=== PATIENT | female | born 1945 | race Caucasian/White ===

== ENCOUNTER 2025-05-12 23:50 | Inpatient (IN) | payer MEDICARE, SELFPAY ==
[2025-05-12] VITALS (7 sets, daily range): BP systolic 124–142; BP diastolic 62–89
[2025-05-12 16:26] LABS: Hematocrit 41.0 % (37.0-47.0); Hemoglobin 13.1 g/dL (12.0-16.0); Mean Corp Hgb Conc. 32.0 g/dL (33.0-37.0); Mean Corpuscular Volume 96.7 fL (81.0-99.0); Nucleated Red Blood Cells % 0 %; Platelet Count 270 10^3/uL (130-400); Red Cell Dist. Width 14.6 % (11.5-14.5)
[2025-05-12 16:30] LABS: INR 1.08; PT 14.3 Sec (11.4-14.6)
[2025-05-12 16:31] LABS: ALT (SGPT) 16 U/L (0-35); AST (SGOT) 21 U/L (14-36); Albumin 4.0 g/dl (3.5-5.0); Alkaline Phosphatase 111 U/L (38-126); Blood Urea Nitrogen 16 mg/dl (7-17); Calcium 9.6 mg/dl (8.4-10.2); Carbon Dioxide 31 mmol/L (22-30); Chloride 97 mmol/L (98-107); Glucose 100 mg/dl (70-99); Potassium 4.0 mmol/L (3.5-5.1); Sodium 136 mmol/L (135-145); Total Protein 7.1 g/dl (6.3-8.2); eGFR > 60.00
[2025-05-12 16:43] LABS: Troponin I 0.014 ng/ml
--- NOTE | 2025-05-12 17:27 | ED.GENMED ---
History of Present Illness
<William Wilcox MD - Last Filed: 05/13/25 12:46>
General
Chief Complaint: Breathing Problem
Source: patient
Exam Limitations: none
Time Seen by Provider: 05/12/25 17:02
Nursing documentation reviewed up to this point in time: agreed with
History of Present Illness
History of Present Illness:
Patient with history of hypercholesterolemia and depression, presents to ED secondary to worsening shortness of breath over the past 2 months, especially when laying down. Patient was evaluated urgent care center, where EKG revealed atrial
fibrillation along with chest x-ray revealing pleural effusion. Patient was subsequently referred to ED for further evaluation and treatment. Patient denies chest pain. Denies vomiting or diarrhea. Denies fever or chills. Patient reports
intermittent cough. Denies leg pain or swelling. Denies back pain. Patient moved up to [place] from [place] in January. Of note, patient reports unintentional weight loss of approximately 100 pounds over the past 2 years.
Review of Systems
<William Wilcox MD - Last Filed: 05/13/25 12:46>
Review of Systems
Allergies reviewed?: Yes
All Other Systems: ROS reviewed and negative except as documented in HPI and ROS
Constitutional: Reports no symptoms
Respiratory: Reports cough and trouble breathing
Cardiac: Reports no symptoms; Denies chest pain or palpitations
ABD/GI: Reports no symptoms; Denies vomiting or diarrhea
Musculoskeletal: Reports no symptoms
Skin: Reports no symptoms
Neurological: Reports no symptoms
Phy Exam
<William Wilcox MD - Last Filed: 05/13/25 12:46>
Physical Exam
Physical Exam:
Physical Exam
General: mild distress, not acutely ill. afebrile. tachycardic
Head: nc/at. eomi
Neck: supple. no jvd
Heart: irregularly irregular. tachycardic.
Lungs: no acute respiratory distress. clear bilaterally
Abdomen: normal bowel sounds. not tender.
Neuro: alert and oriented x 3. no focal neurological deficits
Skin: no rash
Psychiatric: well kept. interactive and cooperative
Extremities: LE b/l, nonpitting edema. no calf tenderness.
Scores
<William Wilcox MD - Last Filed: 05/13/25 12:46>
Heart Failure Risk
Heart Failure Risk Score: Yes
History of Stroke or TIA: No
History of intubation for respiratory distress: No
Heart rate on ED arrival >/= 110: Yes
SaO2 <90% on arrival on room air: No
HR >/=110 during 3min walk test (or too ill to perform test): Yes
ECG has acute ischemic changes: No
Urea >/=12mmol/L (BUN 33.6mg/dL): No
Serum CO2>/=35mmol/L: No
Troponin I or T elevated to AL Level (0.4mg/dL): No
NT-proBNP >/=5,000ng/L (5,000pg/ml): Yes
HF Risk Score: 3
Admission Status: HIGH RISK 15.9% Consider SNF treatment or admission to hospital
Course
<William Wilcox MD - Last Filed: 05/13/25 12:46>
Orders/Labs/Results
Orders:
Orders
05/12/25 15:42
Electrocardiogram (*1) Urgent
Reason for Study: Chest Pain
EKG- Treatment ONCE
05/12/25 16:02
Complete Blood Count/With Diff Urgent
Comprehensive Metabolic Panel Urgent
NT-proBNP Urgent
Prothrombin Time Urgent
TSH Reflex To Free T4 Urgent
Troponin I Urgent
05/12/25 17:25
Add On- LAB Urgent
Tests Added?: TSH to reflex free T4, ProBNP
05/12/25 17:26
Diltiazem HCl [Cardizem] 10 mg IV NOW STA
05/12/25 17:30
Diltiazem 125 mg/125 ml Nss [Cardizem] 125 mg in 125 ml IV PER PROTOCOL
Initial dose in mg/hr, then titrate:: 5
Titrate to keep:: Heart rate 80-100 bpm
Titrate by mg/hr:: 5 mg/hr
Frequency of titrations (minutes):: 15
Maximum dose in mg/hr:: 15
05/12/25 17:36
D-Dimer Urgent
05/12/25 18:34
CT Chest PE Study Urgent
Comment:
Reason For Exam: sob/hypoxia
05/12/25 20:10
Furosemide [Lasix] 20 mg IV NOW STA
05/12/25 23:37
Admit/Transfer Patient As Directed
Co-Sign Provider:
Level of Care: Inpatient admission
Assign to:: IVU
Physician / Group: isha
Diagnosis: afib rvr, malignancy
Reason for Hospitalization: afib rvr, malignancy
Expected length of stay greater than two midnights?: Yes
ELOS- Estimated Length of Stay in days: 2
I certify the patient meets the requirements for IP care: Yes
Code Status As Directed
Resuscitation Status: Full Code
PRN Pain Medication Management As Directed
May give lesser potent ordered pain med per pt: Yes
preference::
Protocol:: Medication orders for pain may be administered in a
manner that supports deferring to patient preference
when the pt is:
- Requesting an ordered lesser potent pain medication.
Least to most potent pain medications are defined
as: acetaminophen < NSAID < tramadol < opioids
(morphine, oxycodone, hydromorphone).
- Requesting a lesser dose of the same medication IF
ORDERED.
- Requesting a less intrusive route of administration
if both routes are prescribed by the provider (PO <
IV).
05/13/25 01:48
Heparin 3,000 units IV NOW STA
Heparin 87288 Units/250 ml 25,000 units in 250 ml IV PER PROTOCOL
Weight to be used for heparin protocol in kilograms (kg):: 49.5
Protocol:: Cardiac Tx/Acute Coronary
PTT Goal Range to be used:: PTT 73 to 111 seconds
Order type:: Initial
INITIAL Infusion Dose (UNITS/KG/hr) & then follow protocol:: 12 units/kg/hr
Infusion Dose in UNITS/hr & then follow protocol (UNITS/hr):: 600
INFUSION RATE in mL/hr & then follow protocol (mL/hr):: 6
PTT less than or equal to 64 seconds:: Increase rate by 200 units/hr (+ 2 mL/hr)
PTT 64.1 to 72.9 seconds:: Increase rate by 100 units/hr (+ 1 mL/hr)
PTT 73 to 111 seconds:: Target Range. No change in rate.
PTT 111.1 to 130.9 seconds:: Decrease rate by 100 units/hr (- 1 mL/hr)
PTT 131 to 199.9 seconds:: HOLD for 1 hr. Then decrease rate by 200 units/hr (- 2 mL/hr)
PTT greater than or equal to 200 seconds:: HOLD for 2 hrs & Notify Provider. Then decrease by 200 units/hr (-
2 mL/hr)
Lab follow-up:: Each change, PTT q6h until 2 consecutive are therapeutic. Then PTT
daily.
doxylamine succinate [Unisom (doxylamine)] 25 mg PO HSPRN PRN
05/13/25 01:48
Echo 2D MMode Color/Doppler Routine
Reason for Study: new afib rvr
Abdomen/Pelvis w Contrast CT [CT Abd/pelvis W Iv Cont] Routine
Comment:
Reason For Exam: lung mets
CARDIOLOGY CONSULT Routine
Consulting Provider: Jacob Alonso
Was physician already notified: No
Reason for consult: afib rvr
Consult Interventional Radiology [IRAD CONSULT] Routine
Consulting Provider: Margarito Brenner
Was physician already notified: No
Procedure being ordered, including laterality if applicable: R thora
Acknowledgement that appropriate orders are entered: Yes
Consult Notification Routine
Specialty to Notify: Cardiology
Date consulting provider notified: 05/13/25
Time consulting provider notified: 06:56
Notified:: Provider
Comment: TT Notified
Consult Notification Routine
Specialty to Notify: IRAD (Interventional Radiology)
Date consulting provider notified: 05/13/25
Time consulting provider notified: 06:56
Notified:: Provider
Comment: TT Notified
Consult Notification Routine
Specialty to Notify: Oncology
Date consulting provider notified: 05/13/25
Time consulting provider notified: 06:57
Notified:: Provider
Comment: TT Notified
ONCOLOGY CONSULT Routine
Consulting Provider: Brendan Allen
Was physician already notified: No
Reason for consult: malignancy unknwon source
VTE Contraindication Routine
VTE Mechanical Device Contraindication: Medical Contraindication
Pharmocologic Contraindication: Medical Contraindication
Body Fluid Amylase Routine
Fluid Source: Pleural
Body Fluid Cell Count Routine
What is the Body Fluid: pleural fluid
Comment: post procedure
Body Fluid Glucose Routine
Fluid Source: Pleural
Body Fluid LDH Routine
Fluid Source: Pleural
Body Fluid Protein Routine
Fluid Source: Pleural
Body Fluid Triglycerides Routine
Fluid Source: Pleural
Body Fluid pH Routine
Fluid Source: Pleural
Fluid Culture with Gram Stain Routine
MOOKIE Source: Pleural Fluid
Specimen Description:
Comment: post procedure
Gram Stain Routine
MOOKIE Source: Pleural Fluid
Specimen Description:
Comment: POST PROCEDURE
Heparin Protocol- PTT Orders As Directed
PTT per Heparin protocol: -Obtain CBC and baseline PTT - if not already collected.
-Obtain PTT 6 hours from start of infusion. Then, every 6 hours until 2 consecutive
PTT's are therapeutic. Then, PTT Daily.
-With each rate change, obtain PTT every 6 hours until 2 consecutive PTT's are
therapeutic. Then, PTT Daily.
Activity As Directed
Activity Level: As Tolerated
Notify MD As Directed
Notify physician if: PTT is greater than or equal to 200.
Vital Signs As Directed
Frequency: Per unit guidelines
IRAD Cytology Routine
Source: Pleural Fluid, Right
Clinical Impression: malignancy
05/13/25 02:24
Complete Blood Count/No Diff Urgent
Comment: Obtain baseline before beginning heparin infusion if not already collected
Complete Blood Count/With Diff IN AM
Comprehensive Metabolic Panel IN AM
LDH Routine
Comment: post procedure, add on to morning labs if already drawn
PTT Urgent
Comment: Obtain baseline before beginning heparin infusion if not already collected
Total Protein Routine
Comment: post procedure, add on to morning labs if already drawn
05/13/25 08:00
Escitalopram Oxalate [Lexapro] 10 mg PO DAILY
05/13/25 Dinner
Cholesterol Lowering
At Your Request: Limited Participation
Cholesterol Lowering: Sodium, 2 Gram
05/13/25 22:00
Atorvastatin [Lipitor] 20 mg PO HS
Abnormal Lab Results
05/12/25 05/12/25
16:02 17:36
WBC 11.7 H 10^3/uL
(4.8-10.8)
MCHC 32.0 L g/dL
(33.0-37.0)
RDW 14.6 H %
(11.5-14.5)
Abs Immat Gran (auto) 0.1 H 10^3/uL
(0-0.05)
Absolute Neuts (auto) 10.5 H 10^3/uL
(1.4-6.5)
Absolute Lymphs (auto) 0.4 L 10^3/uL
(1.2-3.4)
Neutrophils % 90.1 H %
(42.2-75.2)
Lymphocytes % 3.4 L %
(20.5-51.1)
D-Dimer 1.50 H ug/mlFEU
(0.00-0.50)
Chloride 97 L mmol/L
(98-107)
Carbon Dioxide 31 H mmol/L
(22-30)
Glucose 100 H mg/dl
(70-99)
05/12/25 16:02
05/12/25 16:02
Vital Signs
Initial and Last Documented VS:
Initial Vital Signs
Pulse Resp BP Pulse Ox
136 18 140/85 94
05/12/25 15:36 05/12/25 15:36 05/12/25 15:36 05/12/25 15:36
Last Documented Vital Signs
Temp Pulse Resp BP Pulse Ox
97.7 F 65 18 132/70 94
05/13/25 06:49 05/13/25 10:00 05/13/25 06:49 05/13/25 06:52 05/13/25 06:52
<Jet Ratliff, - Last Filed: 05/13/25 02:00>
Orders/Labs/Results
Orders:
Orders
05/12/25 15:42
Electrocardiogram (*1) Urgent
Reason for Study: Chest Pain
EKG- Treatment ONCE
05/12/25 16:02
Complete Blood Count/With Diff Urgent
Comprehensive Metabolic Panel Urgent
NT-proBNP Urgent
Prothrombin Time Urgent
TSH Reflex To Free T4 Urgent
Troponin I Urgent
05/12/25 17:25
Add On- LAB Urgent
Tests Added?: TSH to reflex free T4, ProBNP
05/12/25 17:26
Diltiazem HCl [Cardizem] 10 mg IV NOW STA
05/12/25 17:30
Diltiazem 125 mg/125 ml Nss [Cardizem] 125 mg in 125 ml IV PER PROTOCOL
Initial dose in mg/hr, then titrate:: 5
Titrate to keep:: Heart rate 80-100 bpm
Titrate by mg/hr:: 5 mg/hr
Frequency of titrations (minutes):: 15
Maximum dose in mg/hr:: 15
05/12/25 17:36
D-Dimer Urgent
05/12/25 18:34
CT Chest PE Study Urgent
Comment:
Reason For Exam: sob/hypoxia
05/12/25 20:10
Furosemide [Lasix] 20 mg IV NOW STA
05/12/25 23:37
Admit/Transfer Patient As Directed
Co-Sign Provider:
Level of Care: Inpatient admission
Assign to:: IVU
Physician / Group: isha
Diagnosis: afib rvr, malignancy
Reason for Hospitalization: afib rvr, malignancy
Expected length of stay greater than two midnights?: Yes
ELOS- Estimated Length of Stay in days: 2
I certify the patient meets the requirements for IP care: Yes
Code Status As Directed
Resuscitation Status: Full Code
PRN Pain Medication Management As Directed
May give lesser potent ordered pain med per pt: Yes
preference::
Protocol:: Medication orders for pain may be administered in a
manner that supports deferring to patient preference
when the pt is:
- Requesting an ordered lesser potent pain medication.
Least to most potent pain medications are defined
as: acetaminophen < NSAID < tramadol < opioids
(morphine, oxycodone, hydromorphone).
- Requesting a lesser dose of the same medication IF
ORDERED.
- Requesting a less intrusive route of administration
if both routes are prescribed by the provider (PO <
IV).
05/13/25 01:48
Heparin 3,000 units IV NOW STA
Heparin 78686 Units/250 ml 25,000 units in 250 ml IV PER PROTOCOL
Weight to be used for heparin protocol in kilograms (kg):: 49.5
Protocol:: Cardiac Tx/Acute Coronary
PTT Goal Range to be used:: PTT 73 to 111 seconds
Order type:: Initial
INITIAL Infusion Dose (UNITS/KG/hr) & then follow protocol:: 12 units/kg/hr
Infusion Dose in UNITS/hr & then follow protocol (UNITS/hr):: 600
INFUSION RATE in mL/hr & then follow protocol (mL/hr):: 6
PTT less than or equal to 64 seconds:: Increase rate by 200 units/hr (+ 2 mL/hr)
PTT 64.1 to 72.9 seconds:: Increase rate by 100 units/hr (+ 1 mL/hr)
PTT 73 to 111 seconds:: Target Range. No change in rate.
PTT 111.1 to 130.9 seconds:: Decrease rate by 100 units/hr (- 1 mL/hr)
PTT 131 to 199.9 seconds:: HOLD for 1 hr. Then decrease rate by 200 units/hr (- 2 mL/hr)
PTT greater than or equal to 200 seconds:: HOLD for 2 hrs & Notify Provider. Then decrease by 200 units/hr (-
2 mL/hr)
Lab follow-up:: Each change, PTT q6h until 2 consecutive are therapeutic. Then PTT
daily.
doxylamine succinate [Unisom (doxylamine)] 25 mg PO HSPRN PRN
05/13/25 01:48
Echo 2D MMode Color/Doppler Routine
Reason for Study: new afib rvr
Abdomen/Pelvis w Contrast CT [CT Abd/pelvis W Iv Cont] Routine
Comment:
Reason For Exam: lung mets
CARDIOLOGY CONSULT Routine
Consulting Provider: Jacob Alonso
Was physician already notified: No
Reason for consult: afib rvr
Consult Interventional Radiology [IRAD CONSULT] Routine
Consulting Provider: Margarito Brenner
Was physician already notified: No
Procedure being ordered, including laterality if applicable: R thora
Acknowledgement that appropriate orders are entered: Yes
Consult Notification Routine
Specialty to Notify: Cardiology
Date consulting provider notified: 05/13/25
Time consulting provider notified: 06:56
Notified:: Provider
Comment: TT Notified
Consult Notification Routine
Specialty to Notify: IRAD (Interventional Radiology)
Date consulting provider notified: 05/13/25
Time consulting provider notified: 06:56
Notified:: Provider
Comment: TT Notified
Consult Notification Routine
Specialty to Notify: Oncology
Date consulting provider notified: 05/13/25
Time consulting provider notified: 06:57
Notified:: Provider
Comment: TT Notified
ONCOLOGY CONSULT Routine
Consulting Provider: Brendan Allen
Was physician already notified: No
Reason for consult: malignancy unknwon source
VTE Contraindication Routine
VTE Mechanical Device Contraindication: Medical Contraindication
Pharmocologic Contraindication: Medical Contraindication
Body Fluid Amylase Routine
Fluid Source: Pleural
Body Fluid Cell Count Routine
What is the Body Fluid: pleural fluid
Comment: post procedure
Body Fluid Glucose Routine
Fluid Source: Pleural
Body Fluid LDH Routine
Fluid Source: Pleural
Body Fluid Protein Routine
Fluid Source: Pleural
Body Fluid Triglycerides Routine
Fluid Source: Pleural
Body Fluid pH Routine
Fluid Source: Pleural
Fluid Culture with Gram Stain Routine
MOOKIE Source: Pleural Fluid
Specimen Description:
Comment: post procedure
Gram Stain Routine
MOOKIE Source: Pleural Fluid
Specimen Description:
Comment: POST PROCEDURE
Heparin Protocol- PTT Orders As Directed
PTT per Heparin protocol: -Obtain CBC and baseline PTT - if not already collected.
-Obtain PTT 6 hours from start of infusion. Then, every 6 hours until 2 consecutive
PTT's are therapeutic. Then, PTT Daily.
-With each rate change, obtain PTT every 6 hours until 2 consecutive PTT's are
therapeutic. Then, PTT Daily.
Activity As Directed
Activity Level: As Tolerated
Notify MD As Directed
Notify physician if: PTT is greater than or equal to 200.
Vital Signs As Directed
Frequency: Per unit guidelines
IRAD Cytology Routine
Source: Pleural Fluid, Right
Clinical Impression: malignancy
05/13/25 02:24
Complete Blood Count/No Diff Urgent
Comment: Obtain baseline before beginning heparin infusion if not already collected
Complete Blood Count/With Diff IN AM
Comprehensive Metabolic Panel IN AM
LDH Routine
Comment: post procedure, add on to morning labs if already drawn
PTT Urgent
Comment: Obtain baseline before beginning heparin infusion if not already collected
Total Protein Routine
Comment: post procedure, add on to morning labs if already drawn
05/13/25 08:00
Escitalopram Oxalate [Lexapro] 10 mg PO DAILY
05/13/25 Dinner
Cholesterol Lowering
At Your Request: Limited Participation
Cholesterol Lowering: Sodium, 2 Gram
05/13/25 22:00
Atorvastatin [Lipitor] 20 mg PO HS
Abnormal Lab Results
05/12/25 05/12/25
16:02 17:36
WBC 11.7 H 10^3/uL
(4.8-10.8)
MCHC 32.0 L g/dL
(33.0-37.0)
RDW 14.6 H %
(11.5-14.5)
Abs Immat Gran (auto) 0.1 H 10^3/uL
(0-0.05)
Absolute Neuts (auto) 10.5 H 10^3/uL
(1.4-6.5)
Absolute Lymphs (auto) 0.4 L 10^3/uL
(1.2-3.4)
Neutrophils % 90.1 H %
(42.2-75.2)
Lymphocytes % 3.4 L %
(20.5-51.1)
D-Dimer 1.50 H ug/mlFEU
(0.00-0.50)
Chloride 97 L mmol/L
(98-107)
Carbon Dioxide 31 H mmol/L
(22-30)
Glucose 100 H mg/dl
(70-99)
05/12/25 16:02
05/12/25 16:02
Vital Signs
Initial and Last Documented VS:
Initial Vital Signs
Pulse Resp BP Pulse Ox
136 18 140/85 94
05/12/25 15:36 05/12/25 15:36 05/12/25 15:36 05/12/25 15:36
Last Documented Vital Signs
Temp Pulse Resp BP Pulse Ox
97.7 F 65 18 132/70 94
05/13/25 06:49 05/13/25 10:00 05/13/25 06:49 05/13/25 06:52 05/13/25 06:52
<William Wilcox MD - Last Filed: 05/13/25 12:46>
MDM/Problems Addressed
MDM/Problems Addressed:
Outpatient x-ray reviewed by myself, which reveals right pleural effusion.
Patient started on Cardizem bolus with infusion, secondary to rapid atrial fibrillation, with improvement. In light of patient's unintentional weight loss along with new onset atrial fibrillation, as well as elevated D-dimer, CT PE study ordered.
Patient will be admitted for further evaluation and treatment.
Critical care statement: A total of 40 minutes of critical care time was provided for this patient. This includes management of unstable vital signs, evaluation of the patient at bedside, reviewing the patient's pertinent medical records, review of
old EKGs and review of pertinent medical records. This time with separate from time utilized to perform the aforementioned documented procedures
<William Wilcox MD - Last Filed: 05/13/25 12:46>
*Pulse Oximetry
SaO2: 97
Oxygen Mode of Delivery: Room air
Patient hypoxic: no
*Critical Care Note
Total Time (30-74mins, 75-104mins- exclusive of procedures): 40 min
<Jet Ratliff DO - Last Filed: 05/13/25 02:00>
Update Note
Update Note:
CT shows no pulmonary embolism but there is concern for metastatic disease. Patient made aware of results. Remained stable and heart rate remains controlled. Patient does admit that she feels better. Does admit that she has had weight loss over
some time
ED Attending Note
<William Wilcox MD - Last Filed: 05/13/25 12:46>
-
Portions of this chart may have been created with voice recognition software.� Occasional wrong word or��sound alike� substitutions may have occurred due to the inherent limitations of voice recognition software.
Discharge Plan
Departure
Patient Disposition: Admit
Date of Disposition: 05/12/25
Time of Disposition: 20:40
Presentation/result/management discussed w/ accepting MD/DO: Hospitalist
Discharge Problem:
Atrial fibrillation, rapid, Pleural effusion, Pulmonary metastatic disease
Interventions
Interventions:
*Risk Screen - Suicide Last Done: 05/12/25 15:36
*General Assessment Last Done: 05/12/25 15:36
*Neglect/Abuse Screening Last Done: 05/12/25 18:15
*ED- Fall Risk Assessment Last Done: 05/12/25 18:15
*ED COVID-19 Vaccine History Last Done: 05/12/25 18:15
*Nursing Disposition Last Done: 05/13/25 01:38
ED- Cardiac Assessment Last Done: 05/12/25 17:14
ED- Pulmonary Assessment Last Done: 05/12/25 17:14
Discharge Date and Time
Discharge Date/Time: 05/13/25 01:40
[2025-05-12] MEDS: CARDIZEM 125 IV (17:40)
[2025-05-12] MEDS: CARDIZEM 10 MG IV (17:40)
[2025-05-12 18:01] LABS: D-Dimer 1.50 ug/mlFEU (0.00-0.50)
[2025-05-12] MEDS: LASIX 20 MG IV (20:44)
--- NOTE | 2025-05-12 23:45 | HPS.HSE ---
Family Physician
-
Family Physician: Leilani Mckoy
Chief Complaint
-
shortness of breath
History of Present Illness
79-year-old female past medical history of hypercholesteremia, depression presenting for worsening shortness of breath over the past 2 months primarily with exertion. She has occasional cough. Denies chest pain. Denies palpitations. Denies
dizziness. Denies any prior history of heart conditions. Denies swelling in the legs or in the abdomen.
She went to urgent care and had EKG which showed new onset atrial fibrillation chest x-ray which showed pleural effusion. She was was referred to the emergency room.
She states that her 1 year ago. She had been trying to lose weight intentionally for the past year and lost 80 pounds. She denies any fevers or chills. Denies any abdominal pain, nausea or vomiting or diarrhea. Denies any
headaches, blurry vision, neurological symptoms. Denies back pain.
She recently moved from [place] from [place] in January.
She smoked briefly in high school/college. She drinks alcohol occasionally.
No family history of heart conditions or malignancy.
Medical History
Past Medical History
Past Medical History: Reports Other (hypercholesteremia, depression)
Past Surgical History: Reports None
Social History
Tobacco: Former Smoker
Alcohol: None
Drug: None
Family History
Family History: Not pertinent
Allergies / Home Medications
Allergies reflects when Allergies were last updated in [facility].
Home Medications with original date entered in [facility]
Allergy/Medication List:
Allergies
Allergy/AdvReac Type Severity Reaction Status Date / Time
Cephalosporins Allergy Hives Verified 05/12/25 15:36
Penicillins Allergy Hives Verified 05/12/25 15:36
Home Medications
doxylamine succinate 25 mg tablet (Unisom (doxylamine)) 25 mg PO HSPRN PRN SLEEP 05/12/25
escitalopram oxalate 10 mg tablet (Lexapro) 10 mg PO DAILY 05/12/25
memantine 5 mg tablet 5 mg PO BID 05/12/25
simvastatin 40 mg tablet (Zocor) 40 mg PO HS 05/12/25
Review of Systems
-
History Source: Patient
A 12 point ROS was completed and negative except as noted: Yes
Constitutional: Reports No Symptoms
EENT: Reports No Symptoms
Respiratory: Reports See HPI
Cardiac: Reports See HPI
Abdomen/GI: Reports No Symptoms
: Reports No Symptoms
Musculoskeletal: Reports No Symptoms
Skin: Reports No Symptoms
Neurological: Reports No Symptoms
Endocrine: Reports No Symptoms
Hematologic/Lymphatic: Reports No Symptoms
Psych: Reports No Symptoms
Physical Exam
Vital Signs
Vital Signs
Pulse Resp BP Pulse Ox
87 23 127/89 95
05/12/25 22:45 05/12/25 22:45 05/12/25 22:00 05/12/25 22:45
Physical Exam
General: Well Developed, Well Nourished and No Apparent Distress
HEENT: NormoCephalic, Moist mucous membranes and Atraumatic
Respiratory: Clear
Cardiac: S1/S2 and Regular Rhythm; No Murmur or Rub
GI: Soft, Non Tender, Non Distended and Normal Bowel Sounds; No Organomegaly
Rectal: Deferred by Provider
Musculoskeletal: No Clubbing, No Cyanosis and No Edema
Skin: No Rash
Neuro: Nonfocal/grossly intact
Laboratory Results
-
05/12/25 16:02
05/12/25 16:02
Laboratory Results
PT 14.3 Sec (11.4-14.6) 05/12/25 16:02
INR 1.08 05/12/25 16:02
Total Bilirubin 0.9 mg/dl (0.2-1.3) 05/12/25 16:02
AST 21 U/L (14-36) 05/12/25 16:02
ALT 16 U/L (0-35) 05/12/25 16:02
Alkaline Phosphatase 111 U/L (38-126) 05/12/25 16:02
Troponin I 0.014 ng/ml 05/12/25 16:02
Data Reviewed
-
Lab Data: Labs Reviewed by me
Old Records: Reviewed
Impression/Plan
-
IMPRESSION:
PLAN:
# New onset atrial fibrillation with RVR
- EKG shows atrial fibrillation heart rate 140
-Cardiac BNP 16,000
-D-dimer of 1.[address] PE show solid pulmonary masses throughout both lungs with moderate right pleural effusion
- Check TSH
- Check echo
-[id number] score of 3
-Heparin drip
- Cardiology consulted
# Possible mild component of acute CHF exacerbation secondary to tachycardia
-Cardiac BNP 16,000 although appears dry on examination
- 20 IV Lasix, hold further diuretics
- Check I's and O's, daily weights
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
-Leukocytosis
- IR for diagnostic thoracentesis with fluid studies, cytology
-Check CT abdomen pelvis to look for primary
- Oncology consulted
Hypercholesterolemia
- Continue simvastatin
Anxiety/depression
- Continue Lexapro
- Patient without dementia, denies being on memantine
Full code
DVT prophylaxis�heparin drip
Regular diet
[2025-05-13] VITALS (12 sets, daily range): BP systolic 69–132; BP diastolic 54–73; BMI 21.3
--- NOTE | 2025-05-13 02:28 | W.PN.UPDATE ---
Update Note
Progress Note Update
Asked to see patient to confirm Code status. Reviewed that no CPR or mechanical ventilation will be done if patients heart stops or if respiratory support needed. Patient and patient's daughter, both confirm that patient's code status is to be DNR.
[2025-05-13] MEDS: HEPARIN 3000 UNITS IV (02:34)
[2025-05-13] MEDS: HEPARIN 25000 UNITS/250 ML IV (02:36)
[2025-05-13 02:45] LABS: Hematocrit 41.1 % (37.0-47.0); Hematocrit 41.8 % (37.0-47.0); Hemoglobin 13.5 g/dL (12.0-16.0); Mean Corp Hgb Conc. 32.3 g/dL (33.0-37.0); Mean Corp Hgb Conc. 32.8 g/dL (33.0-37.0); Mean Corpuscular Volume 95.2 fL (81.0-99.0); Mean Corpuscular Volume 96.9 fL (81.0-99.0); Nucleated Red Blood Cells % 0 %; Platelet Count 258 10^3/uL (130-400); Platelet Count 267 10^3/uL (130-400); Red Cell Dist. Width 14.5 % (11.5-14.5); Red Cell Dist. Width 14.6 % (11.5-14.5)
[2025-05-13 02:51] LABS: APTT 28.2 Sec (23.4-35.0)
[2025-05-13 03:06] LABS: ALT (SGPT) 17 U/L (0-35); AST (SGOT) 21 U/L (14-36); Albumin 4.0 g/dl (3.5-5.0); Alkaline Phosphatase 102 U/L (38-126); Blood Urea Nitrogen 17 mg/dl (7-17); Calcium 9.5 mg/dl (8.4-10.2); Carbon Dioxide 38 mmol/L (22-30); Chloride 95 mmol/L (98-107); Estimated Creatinine Clearance 36 ml/min; Glucose 123 mg/dl (70-99); Potassium 3.5 mmol/L (3.5-5.1); Sodium 141 mmol/L (135-145); Total Protein 7.0 g/dl (6.3-8.2); eGFR > 60.00
[2025-05-13 03:07] LABS: LDH 250 U/L (120-246); Total Protein 6.8 g/dl (6.3-8.2)
--- NOTE | 2025-05-13 05:10 | PTCARENOTE ---
Admitted pt from ED to room 2255 at 0130, aaox2, bed alarm in place, able to make needs known. Cardizem infusing at 5ml/hr via R AC, HR sustaining 80-100's, bp stable. Heparin gtt initiated shortly after at 600 unit/hr. Daughter at bedside,
admission questions completed. Pt denies c/o cp or dizziness, some SOB with exertion, Pox 94% RA. Call shipley within reach, oriented pt to room and call light, updated on plan of care both daughter and pt. Bed alarm in place.
[2025-05-13] MEDS: LEXAPRO 10 MG PO (08:13)
--- NOTE | 2025-05-13 08:51 | CON.ONC ---
Consultation
-
Date Consultation Requested: 05/13/25
Requesting Provider: Dr.Udaybhanu Aldridge
Performing Provider: Dr.Sarah Gerber
Reason for Consultation: Malignancy unknown source
Impression
Impression
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
- CT chest 05/13/25: Solid pulmonary masses throughout both lungs highly suspicious for malignancy/metastatic disease. The largest mass measures 5.8 cm in the left upper lobe. Moderate right pleural effusion.
- Elevated WBC of 11.5, likely reactive to ?malignancy, elevated D-dimer
- pending IR consult for diagnostic thoracentesis for today
- pending CT abdomen/pelvis with contrast
# New onset atrial fibrillation with RVR
-EKG shows atrial fibrillation in ED
- On IV Cardizem drip, IV heparin
- Echo pending
- Cardiology following
#Dementia
- daughter states that memantine was recently started a few days ago for newly diagnosed dementia
# Hypercholesterolemia
# Anxiety/depression
DNR
Plan
Plan
pending CT Abdomen/pelvis
pending IR for thoracentesis
Patient History
History of Present Illness
This is a 79yo F patient with PMH of HLD, depression and newly diagnosed dementia who presented to the [facility] for concerns of SOB for the past few months. Daughter present at bedside. Daughter has noticed that patient was progressively
worsening with her shortness of breath with exertion. Most recently she has had trouble doing her daily activities and on Monday evening had difficulty walking to the dining table for dinner.
The daughter also states that over the past 2.5 years, she has noticed 'a unintentional weight loss of around 100 pounds' that was not associated with any abdominal pain, diarrhea/constipation, blood in stool or nausea.
They had gone to the urgent care yesterday where an EKG was done showing new onset atrial fibrillation and chest x-ray with pleural effusion and she was referred to the hospital.
Patient denies any productive cough, chest pain, palpitations or dizziness. Denies any lower extremity swelling, headaches or blurry vision.
The patient has recently moved from [place] to [place] in January to be closer to family. She has not seen a PCP in a few years and had just established care in [place] just a few days ago though she states that she has not had any workup done
for her shortness of breath. She was recently diagnosed with dementia and had started memantine a few days ago.
She states that she has had regular mammograms and only 1 colonoscopy that were unremarkable. Daughter does not think patient ever had Cologuard done. Patient denies any new breast lumps. No history of skin cancer. Daughter states that patient
had smoked 5-6 cigarettes for 10 years during her high school/college time.
There is family history of bladder cancer in father, leukemia in mother (patient unsure of specifics) and breast cancer in daughter.
In the ED, she was afebrile with elevated white count of 11.5, Hb 13.5, neutrophils 90.7%, elevated LDH 250 and normal LFTs. EKG showed atrial fibrillation BNP of 16,000 and elevated D-dimer which prompted CT PE which showed solid pulmonary masses
throughout both lungs highly suspicious for malignancy/metastatic disease along with moderate right pleural effusion.
Past-Medical/Surgical History
Past medical history: Hyperlipidemia, dementia, depression
Surgical history: Cholecystectomy, bilateral total knee replacement
Patient Medication
�Medication �Instructions �Recorded �Confirmed �Last Taken �Type
doxylamine succinate 25 mg tablet 25 mg PO HSPRN PRN SLEEP 05/12/25 05/12/25 Unknown History
(Unisom (doxylamine))
escitalopram oxalate 10 mg tablet 10 mg PO DAILY 05/12/25 05/12/25 05/11/25 History
(Lexapro)
memantine 5 mg tablet 5 mg PO BID 05/12/25 05/12/25 05/11/25 History
simvastatin 40 mg tablet (Zocor) 40 mg PO HS 05/12/25 05/12/25 05/11/25 History
Active Medications
Generic Name Dose Route Start Last Admin
Trade Name Freq PRN Reason Stop Dose Admin
Atorvastatin Calcium 20 mg 05/13/25 22:00
Atorvastatin (Lipitor) 20 Mg Tablet PO 06/10/25 21:59
HS AMELIA
Escitalopram Oxalate 10 mg 05/13/25 08:00 05/13/25 08:13
Escitalopram 10 Mg Tablet PO 06/10/25 07:59 10 mg
DAILY AMELIA Administration
Diltiazem HCl 125 mg in 125 mls @ 0 mls/hr 05/12/25 17:30 05/12/25 17:40
Cardizem IV 125 mls
PER PROTOCOL AMELIA Administration
Protocol
Per Protocol
Heparin Sodium 25,000 units in 250 mls @ 0 mls/hr 05/13/25 01:48 05/13/25 02:36
Heparin 22526 Units/250 Ml IV 250 mls
PER PROTOCOL AMELIA Administration
Protocol
Per Protocol
Iohexol 0 ml 05/13/25 09:00
Iohexol (240 Mg/Ml) 50 Ml Cat Scan PO 05/13/25 09:01
ONCE ONE
Protocol
Non-Formulary Medication 25 mg 05/13/25 01:48
Doxylamine Succinate [Unisom (Doxylamine)] PO
HSPRN PRN
SLEEP
Sodium Chloride 0 flush 05/13/25 02:00
Sodium Chloride 0.9% (Flush) Syringe IV 06/10/25 01:59
PER PROTOCOL AMELIA
Review of Systems
-
History Source: Patient and Family (Daughter)
Constitutional: Reports Weight Loss; Denies Fever or Chills
EENT: Denies Blurry Vision
Respiratory: Reports Trouble Breathing; Denies Cough
Cardiac: Denies Chest Pain or Palpitations
GI: Denies Abdominal Pain, Nausea, Vomiting or Bloody Stools
Breast: Reports No Symptoms
Neuro: Denies Dizzy or Headache
Physical Exam
-
General: No Apparent Distress and Comfortable
Cardiology: Normal Sinus Rhythm, S1 and S2
Pulmonary: Clear
GI: Soft and Other (Nontender, nondistended)
Skin: Warm and Dry
Psych: Calm
Labs
Lab Results
WBC 11.5 10^3/uL (4.8-10.8) H 05/13/25 02:24
WBC 12.4 10^3/uL (4.8-10.8) H 05/13/25:24
RBC 4.24 10^6/uL (4.20-5.40) 05/13/25:24
RBC 4.39 10^6/uL (4.20-5.40) 05/13/25 02:24
Hgb 13.5 g/dL (12.0-16.0) 05/13/25:24
Hgb 13.5 g/dL (12.0-16.0) 05/13/25 02:24
Hct 41.1 % (37.0-47.0) 05/13/25:24
Hct 41.8 % (37.0-47.0) 05/13/25 02:24
MCV 95.2 fL (81.0-99.0) 05/13/25 02:24
MCV 96.9 fL (81.0-99.0) 05/13/25:24
MCH 30.8 pg (27.0-31.0) 05/13/25 02:24
MCH 31.8 pg (27.0-31.0) H 05/13/25:24
MCHC 32.3 g/dL (33.0-37.0) L 05/13/25 02:24
MCHC 32.8 g/dL (33.0-37.0) L 05/13/25 02:24
RDW 14.5 % (11.5-14.5) 05/13/25:24
RDW 14.6 % (11.5-14.5) H 05/13/25 02:24
Plt Count 258 10^3/uL (130-400) 05/13/25 02:24
Plt Count 267 10^3/uL (130-400) 05/13/25 02:24
MPV 10.0 fL (7.4-10.4) 05/13/25 02:24
MPV 10.2 fL (7.4-10.4) 05/13/25 02:24
Abs Immat Gran (auto) 0.1 10^3/uL (0-0.05) H 05/13/25:24
Absolute Neuts (auto) 10.4 10^3/uL (1.4-6.5) H 05/13/25 02:24
Absolute Lymphs (auto) 0.4 10^3/uL (1.2-3.4) L 05/13/25 02:24
Absolute Monos (auto) 0.6 10^3/uL (0.1-0.6) 05/13/25 02:24
Absolute Eos (auto) 0.0 10^3/uL (0-0.7) 05/13/25 02:24
Absolute Basos (auto) 0.0 10^3/uL (0-0.2) 05/13/25 02:24
Immature Gran % 0.5 % (0-0.5) 05/13/25 02:24
Neutrophils % 90.7 % (42.2-75.2) H 05/13/25 02:24
Lymphocytes % 3.3 % (20.5-51.1) L 05/13/25 02:24
Monocytes % 5.0 % (1.7-9.3) 05/13/25:24
Eosinophils % 0.2 % (0-6) 05/13/25 02:24
Basophils % 0.3 % (0-2) 05/13/25 02:24
Creatinine 0.8 mg/dL (0.6-1.0) 05/13/25:24
Vital Signs
Vital Signs
Temp Pulse Resp BP Pulse Ox
97.7 F 102 18 132/70 94
05/13/25 06:49 05/13/25 07:15 05/13/25 06:49 05/13/25 06:52 05/13/25 06:52
[2025-05-13] MEDS: OMNIPAQUE 50 ML PO (09:11)
--- NOTE | 2025-05-13 09:12 | CON.CAR ---
Addendum entered and electronically signed by Umair Sandoval DO 05/13/25 20:56:
I saw and examined the patient.
The Business Line Manager's note was reviewed and I agree with the note.
Comment:
Plan:
Newly diagnosed AFib in setting of wt loss and new lung masses concerning for metastatic disease.
Discussed Afib including rate control, rhythm control and stroke prophylaxis.
Cont IV heparin for prophylaxis
Cont IV Cardizem for rate control.
Will maintain IV meds while pt undergoing diagnostic eval for her potential malignancy.
Check echo to eval for structural heart disease.
Discussed with daughter at bedside.
Original Note:
Consultation
Consultation Request
Date/Time Consultation Performed: 05/13/25
Requesting Provider: Dr. Abdalla
Performing Provider: Aaliyah Bishop PA-C for Dr. Sandoval
Reason for Consultation: CHF, afib
Medical History
-
Chief Complaint: SOB
History of Present Illness:
Patient is an 79-year-old female with past medical history of hyperlipidemia, anxiety/depression who recently moved to this area from [place] earlier this year to live with her daughter. She reports over the last 4 months or so she has lost
approximately 40 pounds. She then states she has noticed worsening shortness of breath, at times with exertion however not always, and at times with lying down flat, however also not always consistently. She denies chest pain or palpitations. On
arrival was noted to be in rapid atrial fibrillation, new diagnosis of unclear duration. She underwent chest CT which showed no PE, but multiple masses in the lungs bilaterally and a moderate left pleural effusion. proBNP 16,700. Cardiology
consulted for evaluation.
PMH:
HLD
Anxiety/depression
Former smoker
Past Medical History
Past Medical History: Other (in HPI)
Social History
Tobacco: Former Smoker
Alcohol: Occasional
Personal:
Living: With Family
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
Family History
Family History: Reviewed & Not Pertinent
Allergies / Home Medications
Allergy/AdvReac Type Severity Reaction Status Date / Time
Cephalosporins Allergy Hives Verified 05/12/25 15:36
Penicillins Allergy Hives Verified 05/12/25 15:36
�Medication �Instructions �Recorded �Confirmed �Type
doxylamine succinate 25 mg tablet 25 mg PO HSPRN PRN SLEEP 05/12/25 05/12/25 History
(Unisom (doxylamine))
escitalopram oxalate 10 mg tablet 10 mg PO DAILY 05/12/25 05/12/25 History
(Lexapro)
memantine 5 mg tablet 5 mg PO BID 05/12/25 05/12/25 History
simvastatin 40 mg tablet (Zocor) 40 mg PO HS 05/12/25 05/12/25 History
Review of Systems
-
History Source: Patient
All other systems: Negative unless noted
Physical Exam
Vital Signs
Temp Pulse Resp BP Pulse Ox
97.7 F 102 18 132/70 94
05/13/25 06:49 05/13/25 07:15 05/13/25 06:49 05/13/25 06:52 05/13/25 06:52
Lab Results
05/13/25 02:24
05/13/25 02:24
Troponin I 0.014 ng/ml 05/12/25 16:02
Sqs-I-Cbfzvgwwhir Pept 41647 pg/ml 05/12/25 16:02
Physical Exam
General: No Apparent Distress and Comfortable
HEENT: Normocephalic, Anicteric and Moist Mucous Membranes
Respiratory: Other (decreased BS LLB)
Cardiac: S1/S2 and Irregular Rhythm
GI: Soft, Non Tender, Non Distended and Normal Bowel Sounds
Musculoskeletal: No Clubbing, No Cyanosis and No Edema
Skin: Warm and Dry
Neuro: AO x 3
Impression / Plan
-
Primary Healthcare Economics Manager: none prior to admission
Assessment:
Presentation with SOB
Mod L pleural effusion
B/L lung masses, concern for malignancy
Atrial fibrillation with RVR, new diagnosis of unclear duration
HLD
Anxiety/depression
Former smoker
DNR code status
ECHO 05/13/25: pending
Plan:
- Patient presents with shortness of breath. Noted by chest CT to have moderate left-sided pleural effusion and proBNP 16,700. Was given 20 mg IV Lasix on 05/12 with good response. [facility] has been consulted for eval for left thoracentesis
- Also noted by chest CT to have bilateral lung masses with concern for malignancy/metastasis. She is for CT of the abdomen and pelvis today. [facility] to evaluate for biopsy. oncology has been consulted
- Cardiology consulted for evaluation of atrial fibrillation with RVR, new diagnosis of unclear duration. Patient asymptomatic. Continue IV heparin as well as IV Cardizem for now
- Check echo
- check TSH
- [id number] score of 3 for age, female. eventual transition from IV heparin to OAC.
- trop 0.014
- d/w nursing
Data Reviewed
-
EKG: Tracing Personally Visualized and interpreted
CT Scan: Report Reviewed by me
Medical Tests (Nuc Med, Echo etc): Report Reviewed by me
Labs: Labs Reviewed by me
Old Records: Reviewed
--- NOTE | 2025-05-13 09:46 | W.PN.HOSP.TC ---
Today's Communication/Plan
-
see A/P
Assessment / Plan
Assessment / Plan
HPI: 79-year-old female past medical history of hypercholesteremia, depression; p/w worsening shortness of breath over the past 2 months primarily with exertion and occasional cough. Denies chest pain. Denies palpitations etc.
She went to urgent care and had EKG which showed new onset atrial fibrillation. Her chest x-ray showed pleural effusion. She was was referred to the emergency room.
She states that her 1 year ago. She had been trying to lose weight intentionally for the past year and lost 80 pounds.
She recently moved from [place] from [place] in January.
She smoked briefly in high school/college. She drinks alcohol occasionally. No family history of heart conditions or malignancy.
A/P
# New onset atrial fibrillation with RVR
EKG shows atrial fibrillation heart rate 140
Started Cardizem drip, cont
D-dimer of 1.[address] PE which showed solid pulmonary masses throughout both lungs with moderate right pleural effusion (see below)
TSH 2.79
Check echo
[id number] score of 3
Pt was started with Heparin drip
Cardiology consulted
# Possible mild component of acute CHF exacerbation secondary to tachycardia
Cardiac BNP 16,000 although appears dry on examination
s/p 20 IV Lasix x1, hold further diuretics
Check I's and O's, daily weights
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
# Mild Leukocytosis, likely reactive due to above
IR CS for diagnostic thoracentesis with fluid studies, cytology
Check CT abdomen pelvis to look for primary
Oncology consulted
# Hypercholesterolemia
Continue simvastatin
# Anxiety/depression
Continue Lexapro
Patient without dementia, denies being on memantine
DVT prophylaxis�heparin drip
DNR DNI per pt and daughter
DW daughter at bedside
total time spent 51 min
Anticipated Discharge: > 48 hours
Subjective/Interval History
-
Date of Service: May 13, 2025
Objective Data
-
Labs:
Laboratory Results
05/13/25 05/13/25 05/13/25
02:24 02:24 02:24
WBC 12.4 H 11.5 H
Hgb 13.5 13.5
Hct 41.1
Plt Count
APTT
Sodium
Potassium
Chloride
Carbon Dioxide
BUN
Creatinine
Glucose
Calcium
Total Bilirubin
AST
ALT
Alkaline Phosphatase
05/13/25 05/13/25 05/13/25
02:24 02:24 09:26
WBC
Hgb
Hct 41.8
Plt Count 267 258
APTT 28.2 Pending
Sodium 141
Potassium 3.5
Chloride 95 L
Carbon Dioxide 38 H
BUN 17
Creatinine 0.8
Glucose 123 H
Calcium 9.5
Total Bilirubin 0.8
AST 21
ALT 17
Alkaline Phosphatase 102
Vital Signs:
Vital Signs
Temp Pulse Resp BP Pulse Ox
36.5 C 102 18 132/70 94
05/13/25 06:49 05/13/25 07:15 05/13/25 06:49 05/13/25 06:52 05/13/25 06:52
I&O
05/12/25 05/13/25 05/14/25
06:59 06:59 06:59
Intake Total 289 / 289
Balance 289 / 289
Review of Systems
-
History Source: Patient
All other systems: Reviewed and negative
Physical Exam
-
General: Well Developed, Well Nourished, No Apparent Distress, Comfortable and Conversant; Negative Respiratory Distress
HEENT: Normocephalic, Atraumatic, Nose Appears Normal and Ears Appear Normal; Negative Oxygen
Respiratory: Clear to Auscultation and Non Labored Respirations; Negative Accessory Resp Muscle Use
Cardiac: Regular Rhythm and S1/S2
GI: Soft, Nontender, Nondistended and Normal Bowel Sounds
Skin: Warm and Dry
Neuro: Awake, Alert and Oriented
Psych: Calm and Intact Judgement/Insight
Data Reviewed
-
CT Scan: Report Reviewed by me, Discussed with Patient and Discussed with Family
Labs: Labs Reviewed by me
[2025-05-13 09:47] LABS: APTT 40.9 Sec (23.4-35.0)
--- NOTE | 2025-05-13 10:14 | CM ---
Reviewed chart. Met with Mrs. Gtz and her daughter to review discharge plans. She states prior to admission she resides with her daughter in a two story home with three steps to enter. She states she has a full flight of steps to get to
bedroom/full bathroom. She states she has a powder room on the first floor. She states prior to admission she was independent with ambulation and adls. She states she does not have any DME in the home. She states she has a prescription plan and
uses [facility]. She states she has never needed VNA and SNF/Rehab. Daughter states they recently bought a new home in [place] that has a first floor in-law suite that they will be moving into in six weeks. Will need to see her current
functional states to see if she will have any skilled care. Medical work-up in progress. The discharge plan is to return french with her daughter when medically stable.
[2025-05-13 16:33] LABS: APTT 40.3 Sec (23.4-35.0)
[2025-05-13 16:47] LABS: Body Fluid Second Tech HB
--- NOTE | 2025-05-13 19:03 | PTCARENOTE ---
~2993-1221: Handoff report received from nightshift RN. Pt AOx2, disoriented to place- patient did state she was in the hospital however said she was in [place]. Pt Forgetful as well. Bedcheck in place for safety. Afib 80s -110s on tele, SBP
110s-130s RA satting 94%. R lung very diminished throughout. Heparin gtt and Cardizem gtt infusing. Oncology in to see patient. Daughter at bedside. Oral contrast solution administered to patient per order. Bloodwork drawn and sent to lab. All
needs met at this time, call shipley within reach.
~1100: Pt finished oral contrast solution. CT called and patient taken to CT via wheelchair transport for CT abd/pelvis.
~1200: Patient returned from CT via wheelchair transport. Patient ambulated to bathroom and then back to bed.
~1400: ECHO at bedside. Called IR to see if patient was going for thoracethesis today, per IR either today or tomorrow.
~1435: Patient transported down to IR for thoracethesis via stretcher.
~1530: Received report from IR, patient done with thoracethesis and on way back to unit. Patient denies pain at this time. Bandaid on R lateral back CDI. RML/RLL fine crackles heard post thoracenthesis.
~1600: bloodwork drawn and sent to lab.
~1700: heparin gtt adjusted per protocol. Next PTT ordered.
~[id number]: Patient resting in bed. Heparin gtt and cardizem gtt infusing. VSS at this time. All needs met at this time, call shipley within reach. handoff report given to nightshift RN.
[2025-05-13] MEDS: LIPITOR 20 MG PO (22:57)
[2025-05-13 23:25] LABS: APTT 56.8 Sec (23.4-35.0)
--- NOTE | 2025-05-13 23:42 | PTCARENOTE ---
Tele remains Afib w/ HR in the 80-90's. IV Cardizem gtt infusing at 5ml/hr. Pt denies any pain or SOB. Has an occasional ASSOCIATE [employer] cough and RLL w/ fine crackles. Right back band-aid intact, no drainage noted. Denies any pain. Pt oriented x2 disoriented to
month. Call shipley in reach, bed alarm active d/t forgetfulness. IV Heparin gtt infusing at 1200 units/hr, next ptt due at 05:40.
[2025-05-14] VITALS (9 sets, daily range): BP systolic 89–118; BP diastolic 51–99; BMI 21.3
--- NOTE | 2025-05-14 01:59 | PTCARENOTE ---
Pt w/ foul smelling urine. Pt denies any pain or discomfort when voiding. 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 Hat placed in toilet, awaiting specimen collection. POC ongoing.
[2025-05-14 06:21] LABS: Hematocrit 38.3 % (37.0-47.0); Hemoglobin 12.6 g/dL (12.0-16.0); Mean Corp Hgb Conc. 32.9 g/dL (33.0-37.0); Mean Corpuscular Volume 94.1 fL (81.0-99.0); Platelet Count 212 10^3/uL (130-400); Red Cell Dist. Width 14.1 % (11.5-14.5)
[2025-05-14 06:46] LABS: Blood Urea Nitrogen 13 mg/dl (7-17); Calcium 8.2 mg/dl (8.4-10.2); Carbon Dioxide 35 mmol/L (22-30); Chloride 95 mmol/L (98-107); Estimated Creatinine Clearance 41 ml/min; Glucose 92 mg/dl (70-99); Magnesium 1.9 mg/dl (1.6-2.3); Potassium 3.3 mmol/L (3.5-5.1); Sodium 133 mmol/L (135-145); eGFR > 60.00
[2025-05-14 07:14] LABS: APTT 75.3 Sec (23.4-35.0)
[2025-05-14] MEDS: HEPARIN 25000 UNITS/250 ML IV (07:14)
--- NOTE | 2025-05-14 08:07 | W.PN.ONC ---
Today's Communication / Plan
-
pending pathology results
Impression
Impression
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
New onset atrial fibrillation with RVR
Dementia
Hypercholesterolemia
Anxiety/depression
Plan
Plan
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
- CT chest 05/13/25: Solid pulmonary masses throughout both lungs highly suspicious for malignancy/metastatic disease. The largest mass measures 5.8 cm in the left upper lobe. Moderate right pleural effusion.
- WBC normal today
- CT abdomen/pelvis on 05/13 unremarkable for primary source
- Diagnostic thoracentesis on 05/13, cytology with exudative pleural exudative fluid; pathology pending
- Right pleural fluid culture pending
- will consider tissue biopsy based on cytology results
# New onset atrial fibrillation with RVR
- EKG shows atrial fibrillation in ED
- On IV Cardizem drip, IV heparin
- Echo 05/13: Left ventricular ejection fraction is severely reduced with an ejection fraction of 29 %
- Cardiology following
#Dementia
- daughter states that memantine was recently started for newly diagnosed dementia
# Hypercholesterolemia
# Anxiety/depression
DNR
Subjective/Objective
Subjective/Objective
Patient feels her shortness of breath did have some improvement after yesterday's thoracentesis procedure.
Vital Signs:
Vital Signs
Temp Pulse Resp BP Pulse Ox
97.7 F 104 18 112/58 95
05/14/25 03:54 05/14/25 04:00 05/14/25 03:54 05/14/25 03:52 05/14/25 03:54
Lab Results:
Laboratory Data
WBC 10.8 10^3/uL (4.8-10.8) 05/14/25 05:47
Hgb 12.6 g/dL (12.0-16.0) 05/14/25 05:47
Plt Count 212 10^3/uL (130-400) 05/14/25 05:47
PT 14.3 Sec (11.4-14.6) 05/12/25 16:02
INR 1.08 05/12/25 16:02
APTT 75.3 Sec (23.4-35.0) H 05/14/25 05:47
eGFR > 60.00 05/14/25 05:47
[2025-05-14] MEDS: LEXAPRO 10 MG PO (08:36)
--- NOTE | 2025-05-14 08:50 | W.PN.CARDCBS ---
Addendum entered and electronically signed by Christian De León MD 05/14/25 14:15:
I saw and examined the patient.
The Street Supervisor's note was reviewed and I agree with the note.
Comment: Briefly, 79-year-old woman presenting with progressive dyspnea found to be in acute heart failure with reduced ejection fraction and rapid atrial fibrillation. CTA on admission identified solid pulmonary masses concerning for
malignancy/metastatic disease.
Was maintained on diltiazem drip and heart rates were better controlled in atrial fibrillation
Given moderately reduced LV systolic function plan to transition to oral beta-crispin and discontinue diltiazem drip
Continue IV heparin for risk reduction of cardioembolic stroke with eventual transition to OAC when no further procedures are planned
Does not appear to be grossly volume overloaded on exam but admission proBNP greater than 16,000
Received one-time dose of IV Lasix 20 mg
Would give an additional dose of IV Lasix today and follow clinically�may be able to transition to low-dose oral Lasix starting tomorrow
Blood pressure is marginal today and therefore unlikely to tolerate additional GDMT beyond Coreg at this time
Plan for eventual ischemic evaluation pending workup of malignancy. Outpatient pharmacologic stress test would be a reasonable option for further risk stratification.
Rest per Aaliyah Bishop
Original Note:
Today's Communication / Plan
-
transition IV cardizem to coreg
GDMT of CM as BP allows
continue IV heparin
awaiting pathology of thoracentesis
consider additional IV lasix
replete K
Impression / Plan
-
Primary Magneto Electrician: none prior to admission
Assessment:
Presentation with SOB
Mod R pleural effusion s/p thoracentesis 05/13/25, exudative
Cardiomyopathy, EF 30% by echo
B/L lung masses, concern for malignancy
Atrial fibrillation with RVR, new diagnosis of unclear duration
HLD
Anxiety/depression
Former smoker
DNR code status
ECHO 05/13/25: EF 30%, diffuse hypokinesis of LV, mild LVH, moderate MAC, mild to moderate MR, moderate TR, PAP 39 mmHg, pleural effusion noted
Plan:
- Patient presents with shortness of breath. Noted by chest CT to have moderate right-sided pleural effusion
- Status post right thoracentesis 05/13. By my calculation of lights criteria, appears exudative. Await cytology/pathology
- Oncology following. Consideration for biopsy of lung mass as able. Fortunately CT of the abdomen and pelvis without evidence of malignancy
- Echocardiogram with results as above, EF 30%, which could be tachycardia mediated. Troponin was 0.014
- For now continue medical management of cardiomyopathy. Will stop IV Cardizem as remains rate controlled in A-fib on review of telemetry overnight, and start Coreg 3.125 mg twice daily. Additional GDMT of reduced EF as blood pressure allows
- Continue IV heparin for now with eventual transition to anticoagulation when no further procedures planned
- proBNP markedly elevated at 16,700. Was given 20 mg IV Lasix on 05/12 with good response. Would consider additional dose today. Replete potassium. Follow hyponatremia with diuresis. Creatinine stable
- TSH within normal limits
- d/w nursing. Discussed with patient and daughter at bedside
Progress Note - Magneto Electrician
Subjective
Date of Service: May 14, 2025
Reports improvement in breathing. Denies chest pain or palpitations
Objective
Labs:
05/14/25 05:47
05/14/25 05:47
Labs
Hgb 12.6 g/dL (12.0-16.0) 05/14/25 05:47
Hct 38.3 % (37.0-47.0) 05/14/25 05:47
Plt Count 212 10^3/uL (130-400) 05/14/25 05:47
PT 14.3 Sec (11.4-14.6) 05/12/25 16:02
INR 1.08 05/12/25 16:02
APTT 75.3 Sec (23.4-35.0) H 05/14/25 05:47
Sodium 133 mmol/L (135-145) L D 05/14/25 05:47
Potassium 3.3 mmol/L (3.5-5.1) L 05/14/25 05:47
BUN 13 mg/dl (7-17) 05/14/25 05:47
Creatinine 0.7 mg/dL (0.6-1.0) 05/14/25 05:47
Glucose 92 mg/dl (70-99) 05/14/25 05:47
Troponins
05/12/25
16:02
Troponin I 0.014
Vital Signs and I&O:
Vital Signs
Temp Pulse Resp BP Pulse Ox
97.5 F 87 18 112/58 95
05/14/25 08:23 05/14/25 08:23 05/14/25 08:23 05/14/25 03:52 05/14/25 08:23
Vital Signs
Temp Pulse Resp BP Pulse Ox
97.5 F 87 18 112/58 95
05/14/25 08:23 05/14/25 08:23 05/14/25 08:23 05/14/25 03:52 05/14/25 08:23
Intake & Output
05/12/25 05/13/25 05/14/25 05/15/25
07:59 07:59 07:59 07:59
Intake Total 289 / 289 184 / 184
Balance 289 / 289 184 / 184
Physical Exam
Physical Exam
GEN: No distress, awake, alert, oriented x3
HEENT: supple, anicteric, mmm, EOMI
LUNGS: Decreased right lung base, no wheezes/rales
CV: Irreg, S1/S2, no murmur
ABD: soft, BS+, NT/ND
EXT: No cyanosis, clubbing.trace edema of bilateral lower extremity
NEURO: Gross non-focal
SKIN: warm, pink, dry. No rash
--- NOTE | 2025-05-14 09:21 | PTCARENOTE ---
Assumed care. Patient Aox2, confused to time, daughter at bedside. A-fib HR 70-80's. Coarse breath sounds b/l upper lobes and coarse crackles right base. Denies pain or shortness of breath. Heparin and Cardizem infusing per MAR, call shipley in reach
[2025-05-14] MEDS: COREG 3.125 MG PO ×2 (09:30→20:08)
--- NOTE | 2025-05-14 09:35 | PTCARENOTE ---
Cardizem gtt stopped, PO Coreg given
--- NOTE | 2025-05-14 09:47 | W.PN.HOSP.TC ---
Addendum entered and electronically signed by Abimbola Abdalla MD 05/14/25 12:35:
# acute systolic CHF exacerbation
Original Note:
Today's Communication/Plan
-
see A/P
Assessment / Plan
Assessment / Plan
HPI: 79-year-old female past medical history of hypercholesteremia, depression; p/w worsening shortness of breath over the past 2 months primarily with exertion and occasional cough. Denies chest pain. Denies palpitations etc.
She went to urgent care and had EKG which showed new onset atrial fibrillation. Her chest x-ray showed pleural effusion. She was was referred to the emergency room.
She states that her 1 year ago. She had been trying to lose weight intentionally for the past year and lost 80 pounds.
She recently moved from [place] from [place] in January.
She smoked briefly in high school/college. She drinks alcohol occasionally. No family history of heart conditions or malignancy.
A/P
# New onset atrial fibrillation with RVR
EKG shows atrial fibrillation heart rate 140
IV Cardizem to Coreg 3.125 BID
D-dimer of 1.[address] PE which showed solid pulmonary masses throughout both lungs with moderate right pleural effusion (see below)
TSH 2.79
echo showed EF 29%, Left ventricular wall motion is diffusely hypokinetic.
[id number] score of 3
Cont heparin drip
Cardiology on board
# Possible mild component of acute CHF exacerbation secondary to tachycardia
Cardiac BNP 16,000 although appears dry on examination
s/p 20 IV Lasix x1, hold further diuretics
Check I's and O's, daily weights
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
# Mild Leukocytosis, likely reactive due to above
s/p IR diagnostic thoracentesis 05/13, follow cytology
CT AP obtained, showed no acute pathology, no evidence of metastatic disease.
Oncology on board
# Hypercholesterolemia
Continue simvastatin
# Anxiety/depression
Continue Lexapro
Patient without dementia, denies being on memantine
DVT prophylaxis�heparin drip
DNR DNI per pt and daughter
DW daughter at bedside
total time spent 51 min
Anticipated Discharge: > 48 hours
Subjective/Interval History
-
Date of Service: May 14, 2025
Objective Data
-
Labs:
Laboratory Results
05/13/25 05/14/25 05/14/25
23:05 05:47 12:00
WBC 10.8
Hgb 12.6
Hct 38.3
Plt Count 212
APTT 56.8 H 75.3 H Pending
Sodium 133 L D
Potassium 3.3 L
Chloride 95 L
Carbon Dioxide 35 H
BUN 13
Creatinine 0.7
Glucose 92
Calcium 8.2 L
Vital Signs:
Vital Signs
Temp Pulse Resp BP Pulse Ox
36.4 C 87 18 112/58 95
05/14/25 08:23 05/14/25 08:23 05/14/25 08:23 05/14/25 03:52 05/14/25 08:23
I&O
05/13/25 05/14/25 05/15/25
06:59 06:59 06:59
Intake Total 289 / 289 184 / 184
Balance 289 / 289 184 / 184
Review of Systems
-
History Source: Patient
All other systems: Reviewed and negative
Physical Exam
-
General: Well Developed, Well Nourished, No Apparent Distress, Comfortable and Conversant; Negative Respiratory Distress
HEENT: Normocephalic, Atraumatic, Nose Appears Normal and Ears Appear Normal; Negative Oxygen
Respiratory: Clear to Auscultation and Non Labored Respirations; Negative Accessory Resp Muscle Use
Cardiac: Regular Rhythm and S1/S2
GI: Soft, Nontender, Nondistended and Normal Bowel Sounds
Skin: Warm and Dry
Neuro: Awake, Alert and Oriented
Psych: Calm and Intact Judgement/Insight
Data Reviewed
-
CT Scan: Report Reviewed by me, Discussed with Patient and Discussed with Family
Medical Tests (Nuc Med, Echo etc): Report Reviewed by me
Labs: Labs Reviewed by me
--- NOTE | 2025-05-14 10:57 | PN.CDI ---
CDI
- -
CDI:
Physician Documentation Request
Admit Date: 05/12/25 23:50
Dear Doctor Lianne,
Please review the following and provide your response in the progress notes.
Clinical Indicators:
Pt admitted with New onset atrial fibrillation with RVR.
05/14 Progress Note: 'echo showed EF 29%, Left ventricular wall motion is diffusely hypokinetic.
[id number] score of 3'...
' Possible mild component of acute CHF exacerbation secondary to tachycardia
Cardiac BNP 16,000 although appears dry on examination
s/p 20 IV Lasix x1, hold further diuretics
Check I's and O's, daily weights.'
Please provide further specificity regarding the most likely type of CHF you are evaluating, treating or monitoring.
Type
Systolic
Diastolic
Combined Systolic/Diastolic
Other
Use of terms such as suspected, likely, concern for, or probable (associated with a specific diagnosis that is being evaluated, monitored, or treated as if it exists) are acceptable and can be coded in the inpatient setting, when documented at the
time of discharge.
Thank you,
Nicole Orellana RN, BSN
CDI Specialist
[employer]
Please use your independent medical judgment in providing your response.
[2025-05-14 12:41] LABS: CEA 2.36 ng/ml
[2025-05-14 13:24] LABS: APTT 103.4 Sec (23.4-35.0)
[2025-05-14] MEDS: LASIX 20 MG IV (14:54)
[2025-05-14] MEDS: KCL 40 MEQ PO (14:55)
[2025-05-14 15:31] LABS: Urine Character Slightly Cloudy (Clear)
--- NOTE | 2025-05-14 15:37 | CM ---
Reviewed chart. Met with Mrs. Gtz and her daughter to review discharge plans. She states she is feeling okay and waiting test results. Prior to admission she resides with her daughter in a two story home with three steps to enter. She has a
full flight of steps to get to bedroom/full bathroom. She has a powder room on the first floor. Prior to admission she was independent with ambulation and adls. She does not have any DME in the home. She has a prescription plan and [facility]. She has never needed VNA and SNF/Rehab. Daughter states they recently bought a new home in [place] that has a first floor in-law suite that they will be moving into in six weeks. Will need to see her current functional states to see if
she will have any skilled care. Medical work-up in progress. The discharge plan is to return french with her daughter when medically stable.
[2025-05-14 15:46] LABS: Urine Squamous Cell >30 /LPF (Few); Urine White Cell 50-60 /HPF (0-5)
--- NOTE | 2025-05-14 18:18 | PTCARENOTE ---
Patient resting comfortable in bed. Shortness of breath with exertion, seems to resolve with rest. Heparin infusing per NOV. Bed alarm audible, call shipley in reach
[2025-05-14] MEDS: LIPITOR 20 MG PO (20:08)
--- NOTE | 2025-05-14 23:45 | PTCARENOTE ---
Assumed care of the pt @ 1900. Pt is AAOx2 A fib on the monitor 100-110. Denies cp or sob. Heparin gtt @ 1200 units/HR. Bed alarm in use. Call shipley within reach.
[2025-05-15 03:29] VITALS: BP 124/90
[2025-05-15 04:12] LABS: Hematocrit 37.7 % (37.0-47.0); Hemoglobin 12.4 g/dL (12.0-16.0); Mean Corp Hgb Conc. 32.9 g/dL (33.0-37.0); Mean Corpuscular Volume 94.5 fL (81.0-99.0); Platelet Count 211 10^3/uL (130-400); Red Cell Dist. Width 14.2 % (11.5-14.5)
[2025-05-15 04:16] LABS: APTT 71.0 Sec (23.4-35.0)
[2025-05-15] MEDS: HEPARIN 25000 UNITS/250 ML IV (04:28)
[2025-05-15 04:33] LABS: Blood Urea Nitrogen 17 mg/dl (7-17); Calcium 8.2 mg/dl (8.4-10.2); Carbon Dioxide 32 mmol/L (22-30); Chloride 97 mmol/L (98-107); Estimated Creatinine Clearance 41 ml/min; Glucose 101 mg/dl (70-99); Magnesium 2.0 mg/dl (1.6-2.3); Potassium 4.4 mmol/L (3.5-5.1); Sodium 133 mmol/L (135-145); eGFR > 60.00
[2025-05-15 06:00] VITALS: BMI 21.2
[2025-05-15 08:18] VITALS: BP 99/72
[2025-05-15] MEDS: COREG 3.125 MG PO (08:21)
[2025-05-15] MEDS: LEXAPRO 10 MG PO (08:21)
--- NOTE | 2025-05-15 08:21 | W.PN.ONC ---
Today's Communication / Plan
-
pending pathology results
Impression
Impression
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
New onset atrial fibrillation with RVR
Dementia
Hypercholesterolemia
Anxiety/depression
Plan
Plan
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
- CT chest 05/13/25: Solid pulmonary masses throughout both lungs highly suspicious for malignancy/metastatic disease. The largest mass measures 5.8 cm in the left upper lobe. Moderate right pleural effusion.
- WBC normal today
- CT abdomen/pelvis on 05/13 unremarkable for primary source
- Diagnostic thoracentesis on 05/13, cytology with exudative pleural exudative fluid; pathology pending
- Right pleural fluid culture negative
- will consider lung nodule core biopsy based on cytology results
# New onset atrial fibrillation with RVR
- EKG shows atrial fibrillation in ED
- On Coreg, IV heparin
- Echo 05/13: Left ventricular ejection fraction is severely reduced with an ejection fraction of 29 %
- Cardiology following
#Possible UTI
-urine cx pending
#Dementia
- daughter states that memantine was recently started for newly diagnosed dementia
# Hypercholesterolemia
# Anxiety/depression
DNR
Subjective/Objective
Subjective/Objective
Patient feels fine today, denies any burning urination.
Vital Signs:
Vital Signs
Temp Pulse Resp BP Pulse Ox
97.6 F 110 18 124/90 96
05/15/25 08:20 05/15/25 03:45 05/15/25 08:20 05/15/25 03:29 05/15/25 08:20
Lab Results:
Laboratory Data
WBC 13.2 10^3/uL (4.8-10.8) H 05/15/25 03:47
Hgb 12.4 g/dL (12.0-16.0) 05/15/25 03:47
Plt Count 211 10^3/uL (130-400) 05/15/25 03:47
PT 14.3 Sec (11.4-14.6) 05/12/25 16:02
INR 1.08 05/12/25 16:02
APTT 71.0 Sec (23.4-35.0) H 05/15/25 03:47
eGFR > 60.00 05/15/25 03:47
Orders
Orders
Orders From Last 24 Hours
05/14/25 09:43
Add On- LAB Routine
--- NOTE | 2025-05-15 08:40 | W.PN.CARDCBS ---
Addendum entered and electronically signed by Christian De León MD 05/15/25 12:55:
I saw and examined the patient.
The Sales Service Representative's note was reviewed and I agree with the note.
Comment: Briefly, 79-year-old woman presenting with progressive dyspnea found to be in acute heart failure with reduced ejection fraction and rapid atrial fibrillation. CTA on admission identified solid pulmonary masses concerning for
malignancy/metastatic disease.
Uptitrate Coreg for goal HR <110 bpm in AFib
Continue IV heparin for risk reduction of cardioembolic stroke with eventual transition to OAC when no further procedures are planned
Does not appear to be grossly volume overloaded on exam but admission proBNP greater than 16,000
Received IV Lasix earlier this admission
Would hold off on additional IV doses with consideration for transition to low-dose oral Lasix
Blood pressure is marginal today and therefore unlikely to tolerate additional GDMT beyond Coreg at this time
Plan for eventual ischemic evaluation pending workup of malignancy. Outpatient pharmacologic stress test would be a reasonable option for further risk stratification.
Discussed with patient's daughter at bedside
Original Note:
Today's Communication / Plan
-
Will attempt uptitration of coreg to 6.25mg BID
Continue IV heparin for now. Await oncology recommendations/plan for possible biopsy
Consider another dose of IV lasix if BP allows
Impression / Plan
-
Primary Bulk Receiver: none prior to admission
Assessment:
Presented with SOB
Mod R pleural effusion s/p thoracentesis 05/13/25, exudative
Cardiomyopathy, EF 30% by echo
B/L lung masses, concern for malignancy
Atrial fibrillation with RVR, new diagnosis of unclear duration
HLD
Anxiety/depression
Former smoker
DNR code status
ECHO 05/13/2025: EF 30%, diffuse hypokinesis of LV, mild LVH, moderate MAC, mild to moderate MR, moderate TR, PAP 39 mmHg, pleural effusion noted
Plan:
-Presented with shortness of breath. Found to have moderate right-sided pleural effusion on CT of chest.
-s/p thoracentesis 05/13. Appears exudative. Await cytology/pathology.
-Oncology is following and there is consideration for biopsy of lung mass. Timing TBD.
-In A-fib with RVR on arrival, new diagnosis of unclear duration. Rates somewhat elevated today on Coreg 3.125 mg twice daily.
-Will attempt up titration of Coreg to 6.25 mg twice daily, however blood pressure is borderline, so will need to monitor closely.
-Continues on IV heparin for anticoagulation with plan to eventually transition to OAC when no further procedures planned.
-proBNP elevated at 16,700. Given IV Lasix on 05/12 and 05/14 with good response.
-Weight down 1lb overnight to 101 lbs on 05/15. Creatinine stable at 0.7. Could consider giving another dose of IV Lasix today
-Echo 05/13 showed EF 30% with mild to moderate MR as noted above. Continuing medical management as BP allows. CM could be tachycardia mediated.
-TSH within normal limits.
-K and mag stable.
Progress Note - Bulk Receiver
Subjective
Date of Service: May 15, 2025
Feels well. No CP or SOB. Denies palpitations.
Objective
Labs:
05/15/25 03:47
05/15/25 03:47
Labs
Hgb 12.4 g/dL (12.0-16.0) 05/15/25 03:47
Hct 37.7 % (37.0-47.0) 05/15/25 03:47
Plt Count 211 10^3/uL (130-400) 05/15/25 03:47
PT 14.3 Sec (11.4-14.6) 05/12/25 16:02
INR 1.08 05/12/25 16:02
APTT 71.0 Sec (23.4-35.0) H 05/15/25 03:47
Sodium 133 mmol/L (135-145) L 05/15/25 03:47
Potassium 4.4 mmol/L (3.5-5.1) D 05/15/25 03:47
BUN 17 mg/dl (7-17) 05/15/25 03:47
Creatinine 0.7 mg/dL (0.6-1.0) 05/15/25 03:47
Glucose 101 mg/dl (70-99) H 05/15/25 03:47
Troponins
05/12/25
16:02
Troponin I 0.014
Vital Signs and I&O:
Vital Signs
Temp Pulse Resp BP Pulse Ox
97.6 F 112 18 99/72 96
05/15/25 08:20 05/15/25 08:18 05/15/25 08:20 05/15/25 08:18 05/15/25 08:20
Vital Signs
Temp Pulse Resp BP Pulse Ox
97.6 F 112 18 99/72 96
05/15/25 08:20 05/15/25 08:18 05/15/25 08:20 05/15/25 08:18 05/15/25 08:20
Intake & Output
05/13/25 05/14/25 05/15/25 05/16/25
06:59 06:59 06:59 06:59
Intake Total 289 / 289 184 / 184
Output Total 150 / 150
Balance 289 / 289 184 / 184 -150 / -150
Physical Exam
Physical Exam
GEN: No distress, awake, alert, oriented x3
HEENT: supple, anicteric, mmm
LUNGS: Decreased right lung base, no wheezes/rales
CV: Irreg, S1/S2, no murmur
EXT: No cyanosis, clubbing, or edema
NEURO: Gross non-focal
SKIN: warm, pink, dry. No rash
[2025-05-15 11:00] VITALS: BP 96/60
[2025-05-15 11:44] LABS: APTT 197.5 Sec (23.4-35.0)
--- NOTE | 2025-05-15 14:03 | CM ---
Reviewed chart. Met with Mrs. Gtz to review discharge plans. She states she is feeling well. She states she has ambulated in the room.. Prior to admission she resides with her daughter in a two story home with three steps to enter. She has a
full flight of steps to get to bedroom/full bathroom. She has a powder room on the first floor. Prior to admission she was independent with ambulation and adls. She does not have any DME in the home. [facility] has [facility] She has never needed VNA and SNF/Rehab. Daughter states they recently bought a new home in [place] that has a first floor in-law suite that they will be moving into in six weeks. Will need to see her current functional states to see if
she will have any skilled care. Medical work-up in progress. The discharge plan is to return home with her daughter when medically stable.
--- NOTE | 2025-05-15 15:07 | W.PN.HOSP.TC ---
Today's Communication/Plan
-
Heart rate controlled with Coreg, anticoagulation with heparin, cytology are still pending
Assessment / Plan
Assessment / Plan
HPI: 79-year-old female past medical history of hypercholesteremia, depression; p/w worsening shortness of breath over the past 2 months primarily with exertion and occasional cough, found to have new onset atrial fibrillation and new pulmonary
metastatic disease with likely malignant right pleural effusion.
A/P
# New onset atrial fibrillation with RVR
EKG shows atrial fibrillation heart rate 140
IV Cardizem changed to Coreg 3.125 BID, heart rate is improving
D-dimer of 1.[address] PE which showed solid pulmonary masses throughout both lungs with moderate right pleural effusion (see below)
TSH 2.79
echo showed EF 29%, Left ventricular wall motion is diffusely hypokinetic.
[id number] score of 3
Cont heparin drip until after biopsy of pulm mets
Cardiology on board
# Possible mild component of acute CHF exacerbation secondary to tachycardia
Cardiac BNP 16,000 although appears dry on examination
s/p 20 IV Lasix x1
Check I's and O's, daily weights
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
# Mild Leukocytosis, likely reactive due to above
s/p IR diagnostic thoracentesis 05/13, follow cytology�pending
CT AP obtained, showed no acute pathology, no evidence of metastatic disease.
Oncology on board
Likely will need biopsy prior to going back on oral anticoagulation, per oncology recs will wait for cytology before ordering
# Hypercholesterolemia
Continue simvastatin
# Anxiety/depression
Continue Lexapro
Patient without dementia, denies being on memantine
DVT prophylaxis�heparin drip
DNR DNI per pt and daughter
Anticipated Discharge: > 48 hours
Subjective/Interval History
-
Date of Service: May 15, 2025
Patient feeling well, denies issues overnight. Daughters at bedside
Objective Data
-
Labs:
Laboratory Results
05/15/25 05/15/25 05/15/25
03:47 11:13 19:30
WBC 13.2 H
Hgb 12.4
Hct 37.7
Plt Count 211
APTT 71.0 H 197.5 H* Pending
Sodium 133 L
Potassium 4.4 D
Chloride 97 L
Carbon Dioxide 32 H
BUN 17
Creatinine 0.7
Glucose 101 H
Calcium 8.2 L
Vital Signs:
Vital Signs
Temp Pulse Resp BP Pulse Ox
98.0 F 96 18 96/60 94
05/15/25 10:59 05/15/25 12:00 05/15/25 10:59 05/15/25 11:00 05/15/25 10:59
I&O
05/14/25 05/15/25 05/16/25
06:59 06:59 06:59
Intake Total 184 / 184 400 / 400
Output Total 150 / 150
Balance 184 / 184 -150 / -150 400 / 400
Review of Systems
-
All other systems: Reviewed and negative
Physical Exam
-
General: No Apparent Distress
HEENT: Moist Mucous Membranes, Anicteric and PERRLA
Respiratory: Clear to Auscultation; Negative Wheezes, Rales or Rhonchi
Cardiac: Regular Rhythm and S1/S2; Negative Murmur, Rub or Gallop
GI: Soft, Nontender, Nondistended and Normal Bowel Sounds
Musculoskeletal: No Edema
Skin: Warm and Dry; Negative Rash, Ulcers or Lesions
Neuro: Awake and AO x 3
Hematologic / Lymphatic: No Lymphadenopathy
Psych: Calm
Data Reviewed
-
CT Scan: Image personally visualized and interpreted, Discussed with Patient and Discussed with Family
Labs: Labs Reviewed by me, Discussed with Patient and Discussed with Family
[2025-05-15 15:08] VITALS: BP 102/64
[2025-05-15 19:52] VITALS: BP 98/69
[2025-05-15] MEDS: COREG 6.25 MG PO (20:13)
[2025-05-15] MEDS: LIPITOR 20 MG PO (20:14)
[2025-05-15 20:22] LABS: APTT 81.6 Sec (23.4-35.0)
[2025-05-15 22:32] VITALS: BP 97/52
[2025-05-16] VITALS (7 sets, daily range): BP systolic 89–118; BP diastolic 45–82; BMI 21.7
--- NOTE | 2025-05-16 01:20 | PTCARENOTE ---
Assumed care of the pt @ 1900. Pt is AAOx2 forgetful at times. A fib on the monitor VSS Heparin gtt infusing per protocol. Pt is 1 person assist to bathroom steady gait. Bed alarm in use. Call shipley within reach.
[2025-05-16] MEDS: HEPARIN 25000 UNITS/250 ML IV ×2 (02:47→23:54)
[2025-05-16 03:13] LABS: Hematocrit 36.2 % (37.0-47.0); Hemoglobin 11.9 g/dL (12.0-16.0); Mean Corp Hgb Conc. 32.9 g/dL (33.0-37.0); Mean Corpuscular Volume 94.0 fL (81.0-99.0); Nucleated Red Blood Cells % 0 %; Platelet Count 185 10^3/uL (130-400); Red Cell Dist. Width 14.6 % (11.5-14.5)
[2025-05-16 03:31] LABS: Blood Urea Nitrogen 18 mg/dl (7-17); Calcium 8.2 mg/dl (8.4-10.2); Carbon Dioxide 34 mmol/L (22-30); Estimated Creatinine Clearance 41 ml/min; Glucose 108 mg/dl (70-99); Potassium 3.7 mmol/L (3.5-5.1); Sodium 133 mmol/L (135-145); eGFR > 60.00
[2025-05-16 03:36] LABS: Chloride 97 mmol/L (98-107)
[2025-05-16 03:39] LABS: APTT 93.0 Sec (23.4-35.0)
[2025-05-16] MEDS: LEXAPRO 10 MG PO (08:34)
[2025-05-16] MEDS: COREG 6.25 MG PO ×2 (08:34→19:31)
--- NOTE | 2025-05-16 08:37 | W.PN.CARDCBS ---
Addendum entered and electronically signed by Rinku Cardozo MD 05/16/25 12:46:
I saw and examined the patient.
The ROLL MACHINE OPERATOR or PA's note was reviewed and I agree with the note.
Comment: General: Well developed, well nourished in NAD.
Neck: Supple, no JVD, HJR, carotids +2 B/L, no bruits bilaterally.
Heart: Non displaced PMI, irregular, no murmurs, No S3, S4, no rubs.
Lungs: Scattered rhonchi
Abdomen: Normal bowel sounds, soft, non-tender, non-distended.
Extremities: No clubbing, cyanosis or edema bilaterally.
Neuro: Grossly nonfocal, awake, alert and oriented x3.
Heart rate control in A-fib is reasonable. Continue IV heparin until decision regarding lung mass biopsy. Volume status appears reasonable at present. Discussed with patient and daughter in detail at bedside.
Original Note:
Today's Communication / Plan
-
Continue coreg, HRs improved
Continue IV heparin for now until no further procedures planned.
Awaiting cytology
Consider dose of IV lasix today.
Impression / Plan
-
Primary Tumbler Plater: none prior to admission
Assessment:
Presented with SOB
Mod R pleural effusion
s/p thoracentesis for 1050 cc 05/13/25, exudative
Cardiomyopathy, EF 30% by echo
B/L lung masses, concern for malignancy
Atrial fibrillation with RVR, new diagnosis of unclear duration
HLD
Anxiety/depression
Former smoker
DNR code status
ECHO 05/13/2025: EF 30%, diffuse hypokinesis of LV, mild LVH, moderate MAC, mild to moderate MR, moderate TR, PAP 39 mmHg, pleural effusion noted
Plan:
-Presented with shortness of breath. Found to have moderate right-sided pleural effusion on CT of chest.
-s/p thoracentesis 8/12 w/ 1050 cc removed. Appears exudative. Awaiting cytology/pathology.
-Oncology is following and there is consideration for biopsy of lung mass once cytology returns. Timing TBD.
-In A-fib with RVR on arrival, new diagnosis of unclear duration. Heart rates improved on higher dose carvedilol 6.25mg BID.
-Continues on IV heparin for anticoagulation with plan to eventually transition to OAC when no further procedures planned.
-proBNP elevated at 16,700. Given IV Lasix on 05/12 and 05/14 with good response.
-Weight up slightly to 103 lbs 05/16. Creat stable at 0.7. Could consider giving another dose of IV lasix today.
-Echo 05/13 showed EF 30% with mild to moderate MR as noted above. Continuing medical management as BP allows. CM could be tachycardia mediated.
-TSH within normal limits.
Progress Note - Tumbler Plater
Subjective
Date of Service: May 16, 2025
No complaints. Feeling well. No dizziness or lightheadedness on higher dose carvedilol.
Objective
Labs:
05/16/25 02:45
05/16/25 02:45
Labs
Hgb 11.9 g/dL (12.0-16.0) L 05/16/25 02:45
Hct 36.2 % (37.0-47.0) L 05/16/25 02:45
Plt Count 185 10^3/uL (130-400) 05/16/25 02:45
PT 14.3 Sec (11.4-14.6) 05/12/25 16:02
INR 1.08 05/12/25 16:02
APTT 93.0 Sec (23.4-35.0) H 05/16/25 02:45
Sodium 133 mmol/L (135-145) L 05/16/25 02:45
Potassium 3.7 mmol/L (3.5-5.1) 05/16/25 02:45
BUN 18 mg/dl (7-17) H 05/16/25 02:45
Creatinine 0.7 mg/dL (0.6-1.0) 05/16/25 02:45
Glucose 108 mg/dl (70-99) H 05/16/25 02:45
Vital Signs and I&O:
Vital Signs
Temp Pulse Resp BP Pulse Ox
98.2 F 83 18 118/82 93
05/16/25 07:21 05/16/25 07:21 05/16/25 07:21 05/16/25 02:36 05/16/25 07:21
Vital Signs
Temp Pulse Resp BP Pulse Ox
98.2 F 83 18 118/82 93
05/16/25 07:21 05/16/25 07:21 05/16/25 07:21 05/16/25 02:36 05/16/25 07:21
Intake & Output
05/14/25 05/15/25 05/16/25 05/17/25
06:59 06:59 06:59 06:59
Intake Total 184 / 184 1196 / 1196
Output Total 150 / 150 450 / 450
Balance 184 / 184 -150 / -150 746 / 746
Physical Exam
Physical Exam
GEN: No distress, awake, alert, oriented x3
HEENT: supple, anicteric, mmm
LUNGS: Decreased right lung base, no wheezes/rales
CV: Irreg, S1/S2, no murmur
EXT: No cyanosis, clubbing, or edema
NEURO: Gross non-focal
SKIN: warm, pink, dry. No rash
--- NOTE | 2025-05-16 09:50 | CON.PUL ---
Consultation
Consultation Request
Date/Time Consultation Requested: 05/16/25
Date/Time Consultation Performed: 05/16/25
Performing Provider: Lizette
Reason for Consultation: Effusion, lung nodules
Medical History
-
History of Present Illness:
Patient is an 79-year-old female with previous history of depression, dementia, hypercholesterolemia presenting for worsening shortness of breath of the past 2 months with exertion. She does have cough complaints, no sputum production, fever or
chills. She had gone to urgent care as an outpatient and had EKG demonstrating new onset atrial fibrillation. Chest x-ray obtained also indicating new pleural effusion. She had recently moved from [place] to [place] to live with her family
here.
She had initial CT scan demonstrating numerous pulmonary nodules suspicious for primary lung cancer with pleural effusion. Underwent thoracentesis on 05/13/2025 with removal of 1050 mL of clear yellow fluid. This was sent for culture and cytology
which are still pending.
She is a former smoker, half a pack a day for 15 years, quit over 30 years ago. She has never been diagnosed previously with lung conditions, never seen pulmonary in the past. She denies family history of lung cancer. 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
Past Medical History
Past Medical History: Other (see list below)
Social History
Tobacco: Former Smoker
Alcohol: None
Drug: None
Family History
Family History: Reviewed & Not Pertinent
Allergies / Home Medications
Allergies
Allergy/AdvReac Type Severity Reaction Status Date / Time
Cephalosporins Allergy Hives Verified 05/12/25 15:36
Penicillins Allergy Hives Verified 05/12/25 15:36
Home Medications
�Medication �Instructions �Recorded �Confirmed �Last Taken �Type
doxylamine succinate 25 mg tablet 25 mg PO HSPRN PRN SLEEP 05/12/25 05/12/25 Unknown History
(Unisom (doxylamine))
escitalopram oxalate 10 mg tablet 10 mg PO DAILY 05/12/25 05/12/2525 History
(Lexapro)
memantine 5 mg tablet 5 mg PO BID 05/12/25 05/12/25 05/11/25 History
simvastatin 40 mg tablet (Zocor) 40 mg PO HS 05/12/25 05/12/25 05/11/25 History
Review of Systems
-
History Source: Patient
All other systems: Negative unless noted
Vitals / Labs / Diagnostic Testing
Vital Signs
Temp Pulse Resp BP Pulse Ox
98.2 F 83 18 118/82 93
05/16/25 07:21 05/16/25 07:21 05/16/25 07:21 05/16/25 02:36 05/16/25 07:21
Lab Data
05/16/25 02:45
05/16/25 02:45
Laboratory Results
05/15/25 05/15/25 05/16/25
11:13 20:03 02:45
APTT 197.5 H* 81.6 H 93.0 H
Microbiology
05/13/25 15:15 Pleural Fluid Body Fluid Culture - Final
No Growth After 72 Hours
05/13/25 15:15 Pleural Fluid Gram Stain - Final
05/14/25 15:20 Urine Urine Culture - Preliminary
Diagnostic Testing:
Assessment
-
Patient is an 79-year-old female with previous history of depression, dementia, hypercholesterolemia presenting for worsening shortness of breath of the past 2 months with exertion. She does have cough complaints, no sputum production, fever or
chills. She had gone to urgent care as an outpatient and had EKG demonstrating new onset atrial fibrillation. Chest x-ray obtained also indicating new pleural effusion. She had initial CT scan demonstrating numerous pulmonary nodules suspicious
for primary lung cancer with pleural effusion. Underwent thoracentesis on 05/13/2025, we are consulted for eval 05/16/25.
Pleural effusion s/p thoracentesis on 05/13/2025 with removal of 1050 mL of clear yellow fluid.
Culture and cytology still pending.
New onset Afib
BOBO
Weight loss, 80lbs
Hyponatremia, mild
Metabolic alkalosis
Leukocytosis
New CHFrEF
Conditions present prior to admission
Depression
Dementia
Hypercholesterolemia
Former smoker, half a pack a day for 15 years, quit over 30 years ago
Plan
No oxygen was needed on admission, currently saturating >90% on RA
Prior history of lung disease is NOT noted -- She is a former smoker, half a pack a day for 15 years, quit over 30 years ago.
She has never been diagnosed previously with lung conditions, never seen pulmonary in the past.
She denies family history of lung cancer.
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
Suspect patient has primary metastatic lung cancer based on imaging
CXR/CT obtained/reviewed personally, underwent thoracentesis on 05/13 with culture and cytology still pending
Chem: pH 7.5 - wbc 1045 - glu 109 - tp 3.4 - ldh 152 - tg <30 -- exudate
No other imaging reviewed--transitioning her care from [place]
We discussed obtaining further diagnostic biopsies if cytology is inconclusive
This can be arranged as outpatient
New onset A-fib noted on EKG
She is placed on IV heparin
Cardio following
ECHO results obtained and reviewed with reduced EF 29%, LV wall motion is diffusely hypokinetic
She has mild to moderate valvular heart disease
Further management per team
Smoking history noted--denies family history of lung cancer
She had been obtaining her routine mammograms and colonoscopies, her daughter is not sure when she stopped doing those
80 pound weight loss is noted
Consideration for nutrition consult
Will need outpatient pulmonary evaluation in our office for PFTs and 6MWT
Could assess for discharge planning if stable from cardiac standpoint with follow-up for pulmonary outpatient next steps
Daughter and patient are in agreement
We will leave contact in chart
Diagnostic Data
Chest X-Ray:
CT Scan:
Echo: 05/13/25- 1. Left ventricular ejection fraction is severely reduced with an ejection fraction of 29 % by Owusu's biplane method of discs.
2. Indexed left atrial volume is severely abnormal (>48 ml/m2).
3. Left ventricular wall motion is diffusely hypokinetic.
4. Mild left ventricular hypertrophy.
5. Mildly dilated right atrium.
6. Moderate mitral annular calcification. mild to moderate mitral valve regurgitation.
7. Moderate tricuspid regurgitation.
8. Pleural effusion is noted.
9. Tricuspid valve opens normally. moderate tricuspid regurgitation. Estimated pulmonary artery pressure of 39 mmHg assuming a right atrial pressure of 3 mmHg.
PFT's:
Reports and relevant images were personally reviewed.
Total time spent on this consultation __75__ minutes which includes review of history, physical exam, medications, laboratory data, personal review of imaging, extensive review of outpatient records, discussion with care team and respiratory therapy.
--- NOTE | 2025-05-16 10:21 | W.PN.ONC2 ---
Today's Communication / Plan
-
follow lung cytology
OP follow up will be arranged upon discharge
Daughter at bedside provided updates and questions answered
Impression
Impression
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
New onset atrial fibrillation with RVR
Dementia
Hypercholesterolemia
Anxiety/depression
Plan
Plan
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
- CT chest 05/13/25: Solid pulmonary masses throughout both lungs highly suspicious for malignancy/metastatic disease. The largest mass measures 5.8 cm in the left upper lobe. Moderate right pleural effusion.
- WBC normal today
- CT abdomen/pelvis on 05/13 unremarkable for primary source
- Diagnostic thoracentesis on 05/13, cytology with exudative pleural exudative fluid; pathology pending
- Right pleural fluid culture negative
- will consider lung nodule core biopsy based on cytology results
# New onset atrial fibrillation with RVR
- EKG shows atrial fibrillation in ED
- On Coreg, IV heparin
- Echo 05/13: Left ventricular ejection fraction is severely reduced with an ejection fraction of 29 %
- Cardiology following
#Dementia
- daughter states that memantine was recently started for newly diagnosed dementia
# Hypercholesterolemia
# Anxiety/depression
DNR
Subjective/Objective
Subjective
no new complaints
Vital Signs:
Vital Signs
Temp Pulse Resp BP Pulse Ox
98.2 F 96 18 104/68 92
05/16/25 07:21 05/16/25 10:00 05/16/25 07:21 05/16/25 07:21 05/16/25 07:21
Lab Results:
Laboratory Data
WBC 14.1 10^3/uL (4.8-10.8) H 05/16/25 02:45
Hgb 11.9 g/dL (12.0-16.0) L 05/16/25 02:45
Plt Count 185 10^3/uL (130-400) 05/16/25 02:45
PT 14.3 Sec (11.4-14.6) 05/12/25 16:02
INR 1.08 05/12/25 16:02
APTT 93.0 Sec (23.4-35.0) H 05/16/25 02:45
eGFR > 60.00 05/16/25 02:45
Physical Exam
HEENT: No Jaundice
Cardiology: Normal Sinus Rhythm
Pulmonary: Clear
GI: Soft
Extremities: Pulses Present
Neuro: Non Focal
--- NOTE | 2025-05-16 14:23 | W.PN.HOSP.TC ---
Today's Communication/Plan
-
Heart rate controlled with Coreg, anticoagulation with heparin, pulm c/s, d/w oncology about bx
Assessment / Plan
Assessment / Plan
79F with HLD, depression; p/w worsening shortness of breath over the past 2 months primarily with exertion and occasional cough, found to have new onset atrial fibrillation and new pulmonary metastatic disease with likely malignant right pleural
effusion.
A/P
# New onset atrial fibrillation with RVR
EKG shows atrial fibrillation heart rate 140
IV Cardizem changed to Coreg 3.125 BID, heart rate is improving
D-dimer of 1.[address] PE which showed solid pulmonary masses throughout both lungs with moderate right pleural effusion (see below)
TSH 2.79
echo showed EF 29%, Left ventricular wall motion is diffusely hypokinetic.
[id number] score of 3
Cont heparin drip until after biopsy of pulm mets then change to oral regimen
Cardiology on board
# acute CHF exacerbation secondary to tachycardia
Cardiac BNP 16,000
s/p IV Lasix
check repeat CXR
Check I's and O's, daily weights
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
# Mild Leukocytosis, likely reactive due to above
s/p IR diagnostic thoracentesis 05/13, follow cytology�pending
CT AP obtained, showed no acute pathology, no evidence of metastatic disease.
Oncology on board
Consulted pulmonology
will need biopsy prior to going back on oral anticoagulation, oncology managing
# Hypercholesterolemia
Continue simvastatin
# Anxiety/depression
Continue Lexapro
Patient without dementia, denies being on memantine
DVT prophylaxis�heparin drip
DNR DNI per pt and daughter
Anticipated Discharge: > 48 hours
Subjective/Interval History
-
Date of Service: May 16, 2025
Patient feeling well denies any acute issues overnight
Objective Data
-
Labs:
Laboratory Results
05/16/25
02:45
WBC 14.1 H
Hgb 11.9 L
Hct 36.2 L
Plt Count 185
APTT 93.0 H
Sodium 133 L
Potassium 3.7
Chloride 97 L
Carbon Dioxide 34 H
BUN 18 H
Creatinine 0.7
Glucose 108 H
Calcium 8.2 L
Vital Signs:
Vital Signs
Temp Pulse Resp BP Pulse Ox
98.2 F 94 18 102/51 93
05/16/25 12:16 05/16/25 12:15 05/16/25 12:16 05/16/25 12:15 05/16/25 12:16
I&O
05/15/25 05/16/25 05/17/25
06:59 06:59 06:59
Intake Total 1196 / 1196 300 / 300
Output Total 150 / 150 450 / 450
Balance -150 / -150 746 / 746 300 / 300
Review of Systems
-
All other systems: Reviewed and negative
Physical Exam
-
General: No Apparent Distress
HEENT: Moist Mucous Membranes, Anicteric and PERRLA
Respiratory: Rales; Negative Clear to Auscultation, Wheezes or Rhonchi
Cardiac: Regular Rhythm and S1/S2; Negative Murmur, Rub or Gallop
GI: Soft, Nontender, Nondistended and Normal Bowel Sounds
Musculoskeletal: No Edema
Skin: Warm and Dry; Negative Rash, Ulcers or Lesions
Neuro: Awake and AO x 3
Hematologic / Lymphatic: No Lymphadenopathy
Psych: Calm
Data Reviewed
-
CT Scan: Image personally visualized and interpreted, Discussed with Patient and Discussed with Family
Labs: Labs Reviewed by me, Discussed with Patient and Discussed with Family
--- NOTE | 2025-05-16 15:40 | PTCARENOTE ---
Tele remains afib. HR 90-110s. Heparin gtt infusing at 11 ml/hr; therapeutic. Pt ambulatory around room w/ steady gait and standby assist. Pt has no complaints pain/discomfort/sob. Bed/chair alarm activated for safety. Plan of care reviewed w/ pt
and daughter and verbalizes understanding. Currently OOB in chair; call violteta w/in reach.
--- NOTE | 2025-05-16 16:25 | CM ---
Reviewed chart. Telephone call to daughterNaomie to review discharge plans. Naomie states she would be agreeable to [facility] if needed. Mrs. Gtz daughter work outside the home. Currently Mrs. Gtz eighteen year old granddaughter
has been staying with her while she was at work. Granddaughter is heading off to college next Prior to admission she resides with her daughter in a two story home with three steps to enter. She has a full flight of steps to get to
bedroom/full bathroom. She has a powder room on the first floor. Prior to admission she was independent with ambulation and adls. She does not have any DME in the home. She has a prescription plan and uses [facility]. She has never needed
VNA and SNF/Rehab. Daughter states they recently bought a new home in [place] that has a first floor in-law suite that they will be moving into in six weeks. Will need to see her current functional states to see if she will have any skilled care.
Medical work-up in progress. The discharge plan is to return home with her daughter and [facility] if indicated when medically stable.
[2025-05-16] MEDS: LIPITOR 20 MG PO (21:57)
[2025-05-17] VITALS (7 sets, daily range): BP systolic 89–111; BP diastolic 51–77; BMI 21.7
--- NOTE | 2025-05-17 00:29 | PTCARENOTE ---
Pt. remains in A-fib rate 80's-110's. No complaints of pain / discomfort, very pleasant although forgetful. Assist x 1 to ambulate, bed alarm on for safety. Pt. resting quietly.
[2025-05-17 04:49] LABS: Hematocrit 39.3 % (37.0-47.0); Hemoglobin 12.8 g/dL (12.0-16.0); Mean Corp Hgb Conc. 32.6 g/dL (33.0-37.0); Mean Corpuscular Volume 94.9 fL (81.0-99.0); Nucleated Red Blood Cells % 0 %; Platelet Count 203 10^3/uL (130-400); Red Cell Dist. Width 14.6 % (11.5-14.5)
[2025-05-17 05:00] LABS: APTT 117.1 Sec (23.4-35.0)
[2025-05-17 05:11] LABS: Blood Urea Nitrogen 17 mg/dl (7-17); Calcium 8.6 mg/dl (8.4-10.2); Carbon Dioxide 33 mmol/L (22-30); Chloride 98 mmol/L (98-107); Estimated Creatinine Clearance 36 ml/min; Glucose 88 mg/dl (70-99); Potassium 3.7 mmol/L (3.5-5.1); Sodium 135 mmol/L (135-145); eGFR > 60.00
--- NOTE | 2025-05-17 07:07 | W.PN.HOSP.TC ---
Today's Communication/Plan
-
see a/p
Assessment / Plan
Assessment / Plan
Physical Exam
General: No Apparent Distress
HEENT: Moist Mucous Membranes, Anicteric and PERRLA
Respiratory: Rales; Negative Clear to Auscultation, Wheezes or Rhonchi
Cardiac: Regular Rhythm and S1/S2; Negative Murmur, Rub or Gallop
GI: Soft, Nontender, Nondistended and Normal Bowel Sounds
Musculoskeletal: No Edema
Skin: Warm and Dry; Negative Rash, Ulcers or Lesions
Neuro: AO x 2 disoriented to time conversant coherent
Psych: Calm
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
effusion.
A/P
# New onset atrial fibrillation with RVR
EKG showed atrial fibrillation heart rate 140
IV Cardizem changed to Coreg 3.125 BID, heart rate since improved
D-dimer 1.[address] PE which showed solid pulmonary masses throughout both lungs with moderate right pleural effusion (see below)
TSH 2.79
ECHO showed EF 29%, Left ventricular wall motion is diffusely hypokinetic.
[id number] score of 3
Cont heparin drip until after biopsy of Pulm mets then change to oral regimen
Cardiology eval appreciated
#Acute vs Acute on Chronic HFrEF
Cardiac BNP 16,000
s/p IV Lasix 05/12 and 05/14 w/ good response noted
repeat CXR 05/16 Right pleural effusion remains small since thoracentesis
monitor I/O's daily weights
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
# Mild progressive Leukocytosis, suspect reactive to above
s/p IR diagnostic thoracentesis 05/13, cytology results neg for malignancy
CT AP obtained, showed no acute pathology, no evidence of metastatic disease beyond b/l pulm masses as noted prior
Oncology eval appreciated
Pulmonology eval appreciated
Pending IR bx pulmonary masses, anticipate upcoming Monday
# Hypercholesterolemia
Continue simvastatin
# Anxiety/depression
#Dementia?
Continue Lexapro
Patient denies being on memantine, listed home medication
PT/OT eval requested
DVT prophylaxis�heparin drip
DNR DNI per pt and daughter
discussed with patient and patient's daughter Naomie
I spent a total of 45 minutes with the patient or on the floor. More than 50% of this time involved counseling and coordination of care.
Anticipated Discharge: 24 - 48 hours
Subjective/Interval History
-
Date of Service: May 17, 2025
No acute distress, sitting up comfortably in bed. Overall reports feeling well. AOx2 disoriented to time. Conversant coherent. Daughter Naomie present during evaluation.
Objective Data
-
Labs:
Laboratory Results
05/17/25 05/17/25
04:34 11:10
WBC 16.1 H
Hgb 12.8
Hct 39.3
Plt Count 203
APTT 117.1 H Pending
Sodium 135
Potassium 3.7
Chloride 98
Carbon Dioxide 33 H
BUN 17
Creatinine 0.8
Glucose 88
Calcium 8.6
Vital Signs:
Vital Signs
Temp Pulse Resp BP Pulse Ox
98.3 F 92 18 100/68 92
05/17/25 04:12 05/17/25 04:12 05/17/25 04:12 05/17/25 04:12 05/17/25 04:12
I&O
05/16/25 05/17/25 05/18/25
06:59 06:59 06:59
Intake Total 1196 / 1196 972 / 972
Output Total 450 / 450 100 / 100
Balance 026 / 688 872 / 872
--- NOTE | 2025-05-17 07:17 | W.PN.CARDCBS ---
Addendum entered and electronically signed by Rinku Cardozo MD 05/17/25 10:06:
I saw and examined the patient.
The VIDEO OPERATOR or PA's note was reviewed and I agree with the note.
Comment: General: Awake but confused
Neck: Supple, no JVD, HJR, carotids +2 B/L, no bruits bilaterally.
Heart: Non displaced PMI, irregular, no murmurs, No S3, S4, no rubs.
Lungs: Scattered rhonchi
Extremities: No clubbing, cyanosis or edema bilaterally.
Neuro: Awake but confused
Heart rate reasonable in A-fib on Coreg. Continue IV heparin until lung biopsy has been performed and no surgery is planned. Eventually transition to Eliquis
Original Note:
Today's Communication / Plan
-
cont Coreg, HRs in afib improved stable and no dizziness
oncology rec inpt biopsy so will cont IV heparin, then transition to OAC after biopsy
Impression / Plan
-
Primary Poem Writer: none prior to admission
Assessment:
Presented with SOB
Mod R pleural effusion
s/p thoracentesis for 1050 cc 05/13/25, exudative
Cardiomyopathy, EF 30% by echo
B/L lung masses, concern for malignancy
Atrial fibrillation with RVR, new diagnosis of unclear duration
HLD
Anxiety/depression
Former smoker
DNR code status
ECHO 05/13/2025: EF 30%, diffuse hypokinesis of LV, mild LVH, moderate MAC, mild to moderate MR, moderate TR, PAP 39 mmHg, pleural effusion noted
Plan:
-Presented with shortness of breath. Found to have moderate right-sided pleural effusion on CT of chest.
-s/p R thoracentesis 05/13 w/ 1050 cc removed. Appears exudative. Awaiting cytology/pathology.
-Oncology is following and plan for IR guided biopsy of lung as inpatient.
-In A-fib with RVR on arrival, new diagnosis of unclear duration. Heart rates improved on higher dose carvedilol 6.25mg BID.
-Continues on IV heparin for anticoagulation with plan to eventually transition to OAC when no further procedures planned.
-proBNP elevated at 16,700. Given IV Lasix on 05/12 and 05/14 with good response.
-Weight stable overnight and up 1 lb since admit. Creat stable at 0.7.
-Echo 05/13 showed EF 30% with mild to moderate MR as noted above. Continuing medical management as BP allows. CM could be tachycardia mediated.
-TSH within normal limits.
Progress Note - Poem Writer
Subjective
Date of Service: May 17, 2025
feels well, no SOB, palps, CP, LH
afib rate controlled
Objective
Labs:
05/17/25 04:34
05/17/25 04:34
Labs
Hgb 12.8 g/dL (12.0-16.0) 05/17/25 04:34
Hct 39.3 % (37.0-47.0) 05/17/25 04:34
Plt Count 203 10^3/uL (130-400) 05/17/25 04:34
PT 14.3 Sec (11.4-14.6) 05/12/25 16:02
INR 1.08 05/12/25 16:02
APTT 117.1 Sec (23.4-35.0) H 05/17/25 04:34
Sodium 135 mmol/L (135-145) 05/17/25 04:34
Potassium 3.7 mmol/L (3.5-5.1) 05/17/25 04:34
BUN 17 mg/dl (7-17) 05/17/25 04:34
Creatinine 0.8 mg/dL (0.6-1.0) 05/17/25 04:34
Glucose 88 mg/dl (70-99) 05/17/25 04:34
Vital Signs and I&O:
Vital Signs
Temp Pulse Resp BP Pulse Ox
98.3 F 92 18 100/68 92
05/17/25 04:12 05/17/25 04:12 05/17/25 04:12 05/17/25 04:12 05/17/25 04:12
Vital Signs
Temp Pulse Resp BP Pulse Ox
98.3 F 92 18 100/68 92
05/17/25 04:12 05/17/25 04:12 05/17/25 04:12 05/17/25 04:12 05/17/25 04:12
Intake & Output
05/15/25 05/16/25 05/17/25 05/18/25
06:59 06:59 06:59 06:59
Intake Total 1196 / 1196 972 / 972
Output Total 150 / 150 450 / 450 100 / 100
Balance -150 / -150 746 / 746 872 / 872
Physical Exam
Physical Exam
GEN: No distress, awake, Ox3
HEENT: supple, anicteric, mmm
LUNGS, decreased R lung 1/2 up
CV: irreg, irreg, S1/S2, no murmur
ABD: soft, BS+, NT/ND
EXT: No edema
NEURO: Gross non-focal
SKIN: No rash
[2025-05-17] MEDS: LEXAPRO 10 MG PO (09:08)
[2025-05-17] MEDS: KCL 20 MEQ PO (09:08)
[2025-05-17] MEDS: COREG 6.25 MG PO ×2 (09:08→21:09)
--- NOTE | 2025-05-17 10:45 | PTCARENOTE ---
Patient resting in bed this morning, IV heparin infusing at 1000 units/hr, patient offers no complaints. Remains in AF, rate controlled. Her daughter in to visit and brought her breakfast. Call violetta in reach, aware to request assistance with IV pump
when ambulating to the bathroom.
[2025-05-17 11:54] LABS: APTT 64.3 Sec (23.4-35.0)
[2025-05-17 18:58] LABS: APTT 112.3 Sec (23.4-35.0)
[2025-05-17] MEDS: LIPITOR 20 MG PO (21:10)
[2025-05-17] MEDS: HEPARIN 25000 UNITS/250 ML IV (22:53)
--- NOTE | 2025-05-17 23:29 | PTCARENOTE ---
Received pt at change of shift resting in bed. Afib/flutter on tele, HR 100's-110's. Heparin gtt infusing per protocol. pt AOx2, disoriented to time. Bed alarm on and audible. pt calls appropriately. Call shipley within reach.
[2025-05-18] VITALS (12 sets, daily range): BP systolic 87–110; BP diastolic 56–83; PULSE 98–124; O2SAT 97; BMI 22.0
[2025-05-18 02:05] LABS: Hematocrit 33.7 % (37.0-47.0); Hemoglobin 11.1 g/dL (12.0-16.0); Mean Corp Hgb Conc. 32.9 g/dL (33.0-37.0); Mean Corpuscular Volume 94.4 fL (81.0-99.0); Nucleated Red Blood Cells % 0 %; Platelet Count 191 10^3/uL (130-400); Red Cell Dist. Width 14.7 % (11.5-14.5)
[2025-05-18 02:18] LABS: APTT 101.7 Sec (23.4-35.0)
[2025-05-18 02:34] LABS: Blood Urea Nitrogen 16 mg/dl (7-17); Calcium 8.5 mg/dl (8.4-10.2); Carbon Dioxide 32 mmol/L (22-30); Chloride 101 mmol/L (98-107); Estimated Creatinine Clearance 41 ml/min; Glucose 94 mg/dl (70-99); Magnesium 2.0 mg/dl (1.6-2.3); Potassium 3.9 mmol/L (3.5-5.1); Sodium 134 mmol/L (135-145); eGFR > 60.00
--- NOTE | 2025-05-18 03:27 | W.PN.UPDATE ---
Update Note
Progress Note Update
Patient is desatting 88-91 on RA. Denies sob / chest pain. Patient usually on RA and does not require O2
Diminished lung sounds on exam with NAD.
Patient feel comfortable on 1-2 L O2 with spo2 94%.
Chest x-ray ordered.
--- NOTE | 2025-05-18 08:02 | W.PN.HOSP.TC ---
Today's Communication/Plan
-
see AP
Assessment / Plan
Assessment / Plan
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
effusion.
A/P:
# New onset atrial fibrillation with RVR
IV Cardizem changed to Coreg 3.125 BID, heart rate since improved
D-dimer 1.[address] PE which showed solid pulmonary masses throughout both lungs with moderate right pleural effusion (see below)
TSH 2.79
ECHO showed EF 29%, Left ventricular wall motion is diffusely hypokinetic.
[id number] score of 3
Cont heparin drip until after biopsy of Pulm mets then change to oral regimen
Cardiology eval appreciated
# Acute vs Acute on Chronic HFrEF
Cardiac BNP 16,000
s/p IV Lasix 05/12 and 05/14 w/ good response noted
repeat CXR 05/16 Right pleural effusion remains small since thoracentesis
monitor I/O's daily weights
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
s/p IR diagnostic thoracentesis 05/13, cytology results neg for malignancy
CT AP obtained, showed no acute pathology, no evidence of metastatic disease beyond b/l pulm masses as noted prior
Oncology eval appreciated, Pulmonology eval appreciated
Pending IR bx pulmonary masses, anticipate upcoming Saturday 05/19
# Acute hypoxic respiratory insufficiency, resolved
Placed on 1-2 L NC for mild desat overnight 05/17 to 88-91 % on RA.
O2 since removed with good saturation at 94%
Follow repeat CXR 05/18 report, on my view unchanged from prior
# Hypercholesterolemia
Continue simvastatin
# Anxiety/depression
# Dementia?
Continue Lexapro
Patient denies being on memantine, listed home medication
# Worsening leucocytosis with foul smelling urine, possible UTI
Pt denies to urinary symptoms but she is not reliable with her current dementia
Check repeat UA/reflex urine Cx
consider empiric ceftriaxone if UA suggestive of UTI
DVT prophylaxis�heparin drip
DNR DNI per pt and daughter
DW RN
updated daughter Naomie on the phone
total time 51 min
Anticipated Discharge: > 48 hours
Subjective/Interval History
-
Date of Service: May 18, 2025
Objective Data
-
Labs:
Laboratory Results
05/18/25 05/18/25
01:55 08:00
WBC 19.4 H
Hgb 11.1 L
Hct 33.7 L
Plt Count 191
APTT 101.7 H Pending
Sodium 134 L
Potassium 3.9
Chloride 101
Carbon Dioxide 32 H
BUN 16
Creatinine 0.7
Glucose 94
Calcium 8.5
Vital Signs:
Vital Signs
Temp Pulse Resp BP Pulse Ox
36.9 C 94 20 110/75 94
05/18/25 07:44 05/18/25 06:00 05/18/25 07:44 05/18/25 03:01 05/18/25 07:44
I&O
05/17/25 05/18/25 05/19/25
06:59 06:59 06:59
Intake Total 972 / 972 360 / 360
Output Total 100 / 100
Balance 872 / 872 360 / 360
Review of Systems
-
History Source: Patient
All other systems: Reviewed and negative
Genitourinary: Reports No Symptoms; Denies Dysuria or Frequency
Physical Exam
-
General: Well Developed, Well Nourished, No Apparent Distress, Comfortable and Conversant
HEENT: Normocephalic and Atraumatic
Respiratory: Non Labored Respirations; Negative Clear to Auscultation, Wheezes, Rhonchi or Accessory Resp Muscle Use
Cardiac: Regular Rhythm and S1/S2; Negative Murmur, Rub or Gallop
GI: Soft, Nontender, Nondistended and Normal Bowel Sounds
Musculoskeletal: No Edema
Skin: Warm and Dry; Negative Rash, Ulcers or Lesions
Neuro: Awake and Alert
Psych: Calm and Intact Judgement/Insight
Data Reviewed
-
CT Scan: Image personally visualized and interpreted, Discussed with Patient and Discussed with Family
Labs: Labs Reviewed by me, Discussed with Patient and Discussed with Family
[2025-05-18] MEDS: LEXAPRO 10 MG PO (08:29)
[2025-05-18] MEDS: COREG 6.25 MG PO ×2 (08:29→19:49)
--- NOTE | 2025-05-18 08:42 | W.PN.CARDCBS ---
Today's Communication / Plan
-
Rate controlled in A-fib
Continue IV heparin until able to give oral anticoagulation after lung biopsy
Continue Coreg for reduced ejection fraction but likely unable to add more meds given hypotension
Impression / Plan
-
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
Assessment:
Presented with SOB
Mod R pleural effusion
s/p thoracentesis for 1050 cc 05/13/25, exudative
Cardiomyopathy, EF 30% by echo
B/L lung masses, concern for malignancy
Atrial fibrillation with RVR, new diagnosis of unclear duration
HLD
Anxiety/depression
Former smoker
Dementia
DNR code status
ECHO 05/13/2025: EF 30%, diffuse hypokinesis of LV, mild LVH, moderate MAC, mild to moderate MR, moderate TR, PAP 39 mmHg, pleural effusion noted
Plan:
Stable cardiology status for IR biopsy of pulmonary masses on 05/19
Remains in A-fib with relatively good rate control
Continue IV heparin until able to change to oral anticoagulation when okay from a lung mass standpoint
Continue Coreg for reduced ejection fraction. Goal-directed medical therapy not likely because of hypotension
Volume status appears reasonable
Progress Note - Television Repairer
Subjective
Date of Service: May 18, 2025
No chest pain or shortness of breath
Objective
Labs:
05/18/25 01:55
05/18/25 01:55
Labs
Hgb 11.1 g/dL (12.0-16.0) L 05/18/25 01:55
Hct 33.7 % (37.0-47.0) L 05/18/25 01:55
Plt Count 191 10^3/uL (130-400) 05/18/25 01:55
PT 14.3 Sec (11.4-14.6) 05/12/25 16:02
INR 1.08 05/12/25 16:02
APTT 101.7 Sec (23.4-35.0) H 05/18/25 01:55
Sodium 134 mmol/L (135-145) L 05/18/25 01:55
Potassium 3.9 mmol/L (3.5-5.1) 05/18/25 01:55
BUN 16 mg/dl (7-17) 05/18/25 01:55
Creatinine 0.7 mg/dL (0.6-1.0) 05/18/25 01:55
Glucose 94 mg/dl (70-99) 05/18/25 01:55
Vital Signs and I&O:
Vital Signs
Temp Pulse Resp BP Pulse Ox
98.5 F 97 20 105/59 94
05/18/25 07:44 05/18/25 08:00 05/18/25 07:44 05/18/25 07:42 05/18/25 07:44
Vital Signs
Temp Pulse Resp BP Pulse Ox
98.5 F 97 20 105/59 94
05/18/25 07:44 05/18/25 08:00 05/18/25 07:44 05/18/25 07:42 05/18/25 07:44
Intake & Output
05/16/25 05/17/25 05/18/25 05/19/25
06:59 06:59 06:59 06:59
Intake Total 1196 / 1196 972 / 972 360 / 360
Output Total 450 / 450 100 / 100
Balance 746 / 746 872 / 872 360 / 360
Physical Exam
Physical Exam
General: Awake but confused
Neck: Supple, no JVD, HJR, carotids +2 B/L, no bruits bilaterally.
Heart: Non displaced PMI, irregular, no murmurs, No S3, S4, no rubs.
Lungs: Scattered rhonchi
Extremities: No clubbing, cyanosis or edema bilaterally.
Neuro: Awake but confused
[2025-05-18 08:49] LABS: APTT 79.1 Sec (23.4-35.0)
--- NOTE | 2025-05-18 09:34 | PTCARENOTE ---
Received patient this morning resting in bed, IV heparin infusing at 1000 units/hr, PTT therapeutic- will repeat in AM as per protocol. WBC's elevated, urine is very strong smelling but she offers no complaints. Will obtain a clean catch urine with
next void. To be NPO in the AM for biopsy.
--- NOTE | 2025-05-18 11:47 | W.PN.PUL3 ---
Today's Communication / Plan
-
- Await IR guided tissue biopsy
- Supplemental O2 as needed to keep saturation above 90%
Assessment
-
Patient is an 79-year-old female with previous history of depression, dementia, hypercholesterolemia presenting for worsening shortness of breath of the past 2 months with exertion. She does have cough complaints, no sputum production, fever or
chills. She had gone to urgent care as an outpatient and had EKG demonstrating new onset atrial fibrillation. Chest x-ray obtained also indicating new pleural effusion. She had initial CT scan demonstrating numerous pulmonary nodules suspicious
for primary lung cancer with pleural effusion. Underwent thoracentesis on 05/13/2025, we are consulted for eval 05/16/25.
Pleural effusion s/p thoracentesis on 05/13/2025 with removal of 1050 mL of clear yellow fluid.
Newly detected Pulmonary masses
New onset Afib
BOBO
Weight loss, 80lbs
Hyponatremia, mild
Metabolic alkalosis
Leukocytosis
New CHFrEF
Conditions present prior to admission
Depression
Dementia
Hypercholesterolemia
Former smoker, half a pack a day for 15 years, quit over 30 years ago
Plan
No oxygen was needed on admission, currently saturating >90% on RA
Prior history of lung disease is NOT noted -- She is a former smoker, half a pack a day for 15 years, quit over 30 years ago.
She has never been diagnosed previously with lung conditions, never seen pulmonary in the past.
She denies family history of lung cancer.
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
Suspect patient has primary metastatic lung cancer based on imaging
CXR/CT obtained/reviewed personally, underwent thoracentesis on 05/13 with culture and cytology negative for malignant cells (yield tends to be low however)
Chem: pH 7.5 - wbc 1045 - glu 109 - tp 3.4 - ldh 152 - tg <30 -- exudate
Oncology service on case, patient going for IR guided lung mass biopsy
Considering re-accumulation on CXR 05/18, malignancy highly likely. Depending on clinical course, might need ASEPT in near future.
New onset A-fib noted on EKG
She is placed on IV heparin
Cardio following
ECHO results obtained and reviewed with reduced EF 29%, LV wall motion is diffusely hypokinetic
She has mild to moderate valvular heart disease
Further management per team
Smoking history noted--denies family history of lung cancer
She had been obtaining her routine mammograms and colonoscopies, her daughter is not sure when she stopped doing those
80 pound weight loss is noted
Consideration for nutrition consult
Will need outpatient pulmonary evaluation in our office for PFTs and 6MWT
Daughter and patient are in agreement
Out patient f/u with [facility].
Total time spent on this consultation/encounter __42__ minutes which includes review of history, physical exam, medications, laboratory data, personal review of imaging, extensive review of outpatient records, discussion with care team and
respiratory therapy.
Diagnostic Data
Chest X-Ray:
CT Scan:
Echo: 05/13/25- 1. Left ventricular ejection fraction is severely reduced with an ejection fraction of 29 % by Owusu's biplane method of discs.
2. Indexed left atrial volume is severely abnormal (>48 ml/m2).
3. Left ventricular wall motion is diffusely hypokinetic.
4. Mild left ventricular hypertrophy.
5. Mildly dilated right atrium.
6. Moderate mitral annular calcification. mild to moderate mitral valve regurgitation.
7. Moderate tricuspid regurgitation.
8. Pleural effusion is noted.
9. Tricuspid valve opens normally. moderate tricuspid regurgitation. Estimated pulmonary artery pressure of 39 mmHg assuming a right atrial pressure of 3 mmHg.
PFT's:
Reports and relevant images were personally reviewed.
Subjective Data
-
Date of Service:
Date of Service: May 18, 2025
Subjective:
Patient comfortably lying in bed in no acute distress, currently saturating well on room air.
Review of Systems
Genitourinary: Other (All 14 systems reviewed and negative except as stated above in the history of present illness.)
Objective Data
Data Reviewed
Vital Signs / I&O / Oxygen:
Vital Signs
Temp Pulse Resp BP Pulse Ox
98.5 F 97 20 105/59 94
05/18/25 07:44 05/18/25 08:00 05/18/25 07:44 05/18/25 07:42 05/18/25 07:44
Intake and Output
05/17/25 05/18/25 05/19/25
06:59 06:59 06:59
Intake Total 972 / 972 360 / 360
Output Total 100 / 100
Balance 872 / 872 360 / 360
SaO2 94
Nasal Cannula flow liters per 1
minute
Physical Exam
General: Comfortable
HEENT: Normocephalic
Cardiovascular: S1-S2
Respiratory: Clear
GI: Soft and Non Distended
Neurology: Awake and Alert
Skin: Warm
Labs/Micro/Reports
Lab Data
05/18/25 01:55
05/18/25 01:55
Laboratory Results
05/17/25 05/17/25 05/18/25
11:28 18:36 01:55
APTT 64.3 H 112.3 H 101.7 H
05/18/25
08:27
APTT 79.1 H
Microbiology
05/14/25 15:20 Urine Urine Culture - Final
05/13/25 15:15 Pleural Fluid Body Fluid Culture - Final
No Growth After 72 Hours
05/13/25 15:15 Pleural Fluid Gram Stain - Final
[2025-05-18 16:30] LABS: Urine Character Slightly Cloudy (Clear)
[2025-05-18 16:40] LABS: Urine Squamous Cell >30 /LPF (Few)
[2025-05-18 16:42] LABS: Urine Red Blood Cell 0-2 /HPF (0-2)
[2025-05-18] MEDS: LIPITOR 20 MG PO (21:00)
[2025-05-18] MEDS: MELATONIN 5 MG PO (21:03)
--- NOTE | 2025-05-18 21:18 | PTCARENOTE ---
Assumed care on pt at 1900, resting in chair with no c/o cp, sob or any discomfort. Afib on the tele monitor, HR 90-120's with ambulation. Pox 94% RA, lungs diminished throughout R>L. Heparin gtt infusing at 1000unit/hr, therapeutic, will recheck
ptt with AM labs. Safety precautions in place, Call shipley within reach.
[2025-05-19] VITALS (12 sets, daily range): BP systolic 84–112; BP diastolic 51–82; BMI 22.1
[2025-05-19] MEDS: HEPARIN 25000 UNITS/250 ML IV (02:23)
[2025-05-19 03:33] LABS: Hematocrit 34.8 % (37.0-47.0); Hemoglobin 11.1 g/dL (12.0-16.0); Mean Corp Hgb Conc. 31.9 g/dL (33.0-37.0); Mean Corpuscular Volume 96.7 fL (81.0-99.0); Platelet Count 197 10^3/uL (130-400); Red Cell Dist. Width 14.7 % (11.5-14.5)
[2025-05-19 03:43] LABS: APTT 62.0 Sec (23.4-35.0)
[2025-05-19 03:55] LABS: Blood Urea Nitrogen 20 mg/dl (7-17); Calcium 9.0 mg/dl (8.4-10.2); Carbon Dioxide 28 mmol/L (22-30); Chloride 102 mmol/L (98-107); Estimated Creatinine Clearance 36 ml/min; Glucose 92 mg/dl (70-99); Magnesium 2.2 mg/dl (1.6-2.3); Potassium 3.9 mmol/L (3.5-5.1); Sodium 135 mmol/L (135-145); eGFR > 60.00
--- NOTE | 2025-05-19 08:25 | PTCARENOTE ---
Patient resting in bed this morning, offers no complaints, IV heparin infusing at 1200 units/hr. IR called for the patient, daughter here now and sent to IR with the patient.
--- NOTE | 2025-05-19 08:39 | W.PN.HOSP.TC ---
Today's Communication/Plan
-
see A/P
Assessment / Plan
Assessment / Plan
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
effusion.
A/P:
# New onset atrial fibrillation with RVR
IV Cardizem changed to Coreg 3.125 BID, heart rate since improved
D-dimer 1.[address] PE which showed solid pulmonary masses throughout both lungs with moderate right pleural effusion (see below)
TSH 2.79
ECHO showed EF 29%, Left ventricular wall motion is diffusely hypokinetic.
[id number] score of 3
Cont heparin drip until after biopsy of Pulm mets then change to oral regimen
Cardiology eval appreciated
# Acute vs Acute on Chronic HFrEF
Cardiac BNP 16,000
s/p IV Lasix 05/12 and 05/14 w/ good response noted
monitor I/O's daily weights
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
s/p IR diagnostic thoracentesis 05/13, cytology result neg for malignancy
CT AP obtained, showed no acute pathology, no evidence of metastatic disease beyond b/l pulm masses as noted prior
Oncology/Pulmonology eval appreciated
Noted R pleural effusion reaccumulated, s/p repeat R thora 05/19, follow repeat cytology from 05/19
Pending IR bx pulmonary masses, plan for 05/20
# Acute hypoxic respiratory insufficiency, resolved
Was placed on 1-2 L NC, weaned back to RA
# Hypercholesterolemia
Continue simvastatin
# Anxiety/depression
# Dementia?
Continue Lexapro
Patient denies being on memantine, listed home medication
# Worsening leucocytosis with foul smelling urine, possible UTI
Pt denies to urinary symptoms but she is not reliable with her current dementia
follow repeat urine Cx from 05/18
empirically cover with Levaquin x3 days
DVT prophylaxis�heparin drip
DNR DNI per pt and daughter
DW RN
coordinated care with IR
DW daughter at bedside
total time 51 min
Anticipated Discharge: 24 - 48 hours
Subjective/Interval History
-
Date of Service: May 19, 2025
Objective Data
-
Labs:
Laboratory Results
05/19/25 05/19/25
02:54 10:15
WBC 17.4 H
Hgb 11.1 L
Hct 34.8 L
Plt Count 197
APTT 62.0 H Pending
Sodium 135
Potassium 3.9
Chloride 102
Carbon Dioxide 28
BUN 20 H
Creatinine 0.8
Glucose 92
Calcium 9.0
Vital Signs:
Vital Signs
Temp Pulse Resp BP Pulse Ox
36.5 C 92 17 112/71 95
05/19/25 08:12 05/19/25 08:14 05/19/25 08:12 05/19/25 08:14 05/19/25 08:12
I&O
05/18/25 05/19/25 05/20/25
06:59 06:59 06:59
Intake Total 960 / 960 720 / 720
Output Total 100 / 100
Balance 960 / 960 620 / 620
Review of Systems
-
History Source: Patient
All other systems: Reviewed and negative
Genitourinary: Reports No Symptoms; Denies Dysuria or Frequency
Physical Exam
-
General: Well Developed, Well Nourished, No Apparent Distress, Comfortable and Conversant
HEENT: Normocephalic, Atraumatic and Oxygen (2L NC)
Respiratory: Non Labored Respirations; Negative Clear to Auscultation, Wheezes, Rhonchi or Accessory Resp Muscle Use
Cardiac: Regular Rhythm and S1/S2; Negative Murmur, Rub or Gallop
GI: Soft, Nontender, Nondistended and Normal Bowel Sounds
Musculoskeletal: No Edema
Skin: Warm and Dry; Negative Rash, Ulcers or Lesions
Neuro: Awake and Alert
Psych: Calm and Intact Judgement/Insight (somewhat)
Data Reviewed
-
Diagnostic Radiology: Report Reviewed by me
CT Scan: Image personally visualized and interpreted, Discussed with Patient and Discussed with Family
Labs: Labs Reviewed by me, Discussed with Patient and Discussed with Family
--- NOTE | 2025-05-19 09:34 | PTCARENOTE ---
IRAD note: order for NPO with breakfast on 05/20/25 placed, also placed Miscellaneous order to HOLD Heparin drip at 10am on 05/20 for Lung biopsy. IVU Nurse Marie notified of above orders.
--- NOTE | 2025-05-19 09:46 | PTCARENOTE ---
Patient returned from IR after thoracentesis R lung. Dressing right posterior back is dry and intact. Pulse ox 88% on RA, NPC, placed on 2L NC and pulse ox now 96%. Daughter at the bedside, pulmonary in to speak with them.
[2025-05-19] MEDS: COREG PO (10:22)
[2025-05-19] MEDS: LEVAQUIN 150 IV (10:22)
[2025-05-19] MEDS: LEXAPRO 10 MG PO (10:22)
--- NOTE | 2025-05-19 10:24 | W.PN.PUL.V3 ---
Today's Communication / Plan
-
Wean oxygen
Repeat thoracentesis noted-exudate, pathology and microbiology pending
IR lung biopsy 05/20/2025
Assessment
-
Patient is an 79-year-old female with previous history of depression, dementia, hypercholesterolemia presenting for worsening shortness of breath of the past 2 months with exertion. She does have cough complaints, no sputum production, fever or
chills. She had gone to urgent care as an outpatient and had EKG demonstrating new onset atrial fibrillation. Chest x-ray obtained also indicating new pleural effusion. She had initial CT scan demonstrating numerous pulmonary nodules suspicious
for primary lung cancer with pleural effusion. Underwent thoracentesis on 05/13/2025, we are consulted for eval 05/16/25.
Pleural effusion s/p thoracentesis on 05/13/2025 with removal of 1050 mL of clear yellow fluid and another liter removed on 05/19/2025
Newly detected Pulmonary masses
New onset Afib
BOBO
Weight loss, 80lbs
Hyponatremia, mild
Metabolic alkalosis
Leukocytosis
New CHFrEF
Conditions present prior to admission:
Depression
Dementia
Hypercholesterolemia
Former smoker, half a pack a day for 15 years, quit over 30 years ago
Plan
Prior history of lung disease is NOT noted -- She is a former smoker, half a pack a day for 15 years, quit over 30 years ago.
She has never been diagnosed previously with lung conditions, never seen pulmonary in the past.
She denies family history of lung cancer.
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
Respiratory status improved after repeat thoracentesis
Supplemental oxygen as needed
Aspiration precautions
Incentive spirometry
Nebulizers as needed
Mucolytic's
Mucus clearing devices
Thoracentesis 05/13/2025 noted
Repeat thoracentesis 05/19/2025-reportedly -1 L,-exudate, microbiology and pathology pending
Suspect patient has primary metastatic lung cancer based on imaging
CXR/CT obtained/reviewed personally, underwent thoracentesis on 05/13/25 with culture and cytology negative for malignant cells (yield tends to be low however)
Chem: pH 7.5 - wbc 1045 - glu 109 - tp 3.4 - ldh 152 - tg <30 -- exudate
Oncology service on case, patient going for IR guided lung mass biopsy
Dr. Love reviewed potential need for PleurX catheter with patient as well as daughter with recurrent fairly rapid reaccumulation of pleural fluid
Dr. Love reviewed with daughter and patient whether she would pursue treatment of potential underlying lung cancer and her answer was she would consider it and thus biopsy is appropriate
New onset A-fib noted on EKG
She is placed on IV heparin
Cardio following
ECHO-reduced EF 29%, LV wall motion is diffusely hypokinetic
She has mild to moderate valvular heart disease
Further management per team
Smoking history noted--denies family history of lung cancer
She had been obtaining her routine mammograms and colonoscopies, her daughter is not sure when she stopped doing those
80 pound weight loss is noted
Consideration for nutrition consult
Will need outpatient pulmonary evaluation in our office for PFTs and 6MWT
Out patient f/u with [facility].
Diagnostic Data
Chest X-Ray:
CT Scan:
Echo: 05/13/25- 1. Left ventricular ejection fraction is severely reduced with an ejection fraction of 29 % by Owusu's biplane method of discs.
2. Indexed left atrial volume is severely abnormal (>48 ml/m2).
3. Left ventricular wall motion is diffusely hypokinetic.
4. Mild left ventricular hypertrophy.
5. Mildly dilated right atrium.
6. Moderate mitral annular calcification. mild to moderate mitral valve regurgitation.
7. Moderate tricuspid regurgitation.
8. Pleural effusion is noted.
9. Tricuspid valve opens normally. moderate tricuspid regurgitation. Estimated pulmonary artery pressure of 39 mmHg assuming a right atrial pressure of 3 mmHg.
Reports and relevant images were personally reviewed.
Subjective Data
-
Date of Service:
Date of Service: May 19, 2025
Chief Complaint: Pulmonary Follow Up and Dyspnea Follow Up
Subjective:
Feels better after thoracentesis, no complaints of shortness of breath at rest, no chest pain, productive cough, abdominal pain
Review of Systems
General: Other (Per HPI)
Objective Data
Data Reviewed
Vital Signs / I&O:
Vital Signs
Temp Pulse Resp BP Pulse Ox
97.6 F 86 18 89/59 96
05/19/25 09:44 05/19/25 10:22 05/19/25 09:44 05/19/25 10:22 05/19/25 09:44
Intake and Output
05/18/25 05/19/25 05/20/25
06:59 06:59 06:59
Intake Total 960 / 960 720 / 720
Output Total 100 / 100
Balance 960 / 960 620 / 620
SaO2: 96
Nasal Cannula flow liters per minute: 2
Physical Exam
General: Respiratory Distress (n) and Comfortable
HEENT: Normocephalic
Cardiovascular: Regular Rhythm and Murmur
Respiratory: Clear, Non-Labored Respirations, Accessory Resp Muscle Use (n) and Stridor (n)
GI: Soft and Non Distended
Neurology: Awake and No Motor Deficits
Skin: Warm, Good Color, Cyanosis (n) and Jaundice (n)
Labs/Micro/Reports
Lab Data
05/19/25 02:54
05/19/25 02:54
Laboratory Results
05/19/25
02:54
APTT 62.0 H
Microbiology
05/14/25 15:20 Urine Urine Culture - Final
05/13/25 15:15 Pleural Fluid Body Fluid Culture - Final
No Growth After 72 Hours
05/13/25 15:15 Pleural Fluid Gram Stain - Final
--- NOTE | 2025-05-19 10:48 | PTCARENOTE ---
Patient resting in bed, dressing right back remains dry and intact. Less coughing since she came back from thoracentesis, on 2L NC, pulse ox 96%. BP 89/59, AM coreg held, patient started on IV levaquin as ordered.
[2025-05-19 10:50] LABS: Body Fluid Second Tech EM
[2025-05-19 11:11] LABS: LDH 339 U/L (120-246); Total Protein 5.7 g/dl (6.3-8.2)
[2025-05-19 12:21] LABS: APTT 170.4 Sec (23.4-35.0)
--- NOTE | 2025-05-19 13:55 | W.PN.CARDCBS ---
Addendum entered and electronically signed by Rinku Cardozo MD 05/19/25 14:23:
I saw and examined the patient.
The LEGAL NURSE CONSULTANT or PA's note was reviewed and I agree with the note.
Comment: Awake and confused
Neck: Supple, no JVD, HJR, carotids +2 B/L, no bruits bilaterally.
Heart: Non displaced PMI, irregularly, no murmurs, No S3, S4, no rubs.
Lungs: Scattered rhonchi
Extremities: No clubbing, cyanosis or edema bilaterally.
Neuro: Awake and confused
Stable cardiology status for IR guided lung biopsy on 05/20. Continue IV heparin with eventual anticoagulation with Eliquis when lung procedures are completed.
Original Note:
Today's Communication / Plan
-
transition to OAC once no further procedures. For IR guided lung biospy 05/20
Impression / Plan
-
Primary Performance Improvement Manager: none prior to admission
Assessment:
Presented with SOB
Mod R pleural effusion
s/p thoracentesis for 1050 cc 05/13/25, exudative
Repeat R thoracentesis 1050 cc serosanguineous pleural fluid 05/19/2025
Cardiomyopathy, EF 30% by echo
B/L lung masses, concern for malignancy
Atrial fibrillation with RVR, new diagnosis of unclear duration
HLD
Anxiety/depression
Former smoker
Dementia
DNR code status
ECHO 05/13/2025: EF 30%, diffuse hypokinesis of LV, mild LVH, moderate MAC, mild to moderate MR, moderate TR, PAP 39 mmHg, pleural effusion noted
Plan:
Status post repeat right thoracentesis today 05/19 for reaccumulated right pleural effusion
Stable cardiology status for IR biopsy of lung mass on 05/20/2025
Continue IV heparin until able to change to oral anticoagulation when okay from a lung mass standpoint. Given age 79 and wt 47 kg (<60 kg) Eliquis dose would be 2.5 mg bid.
Heart rates in A-fib controlled in 90s
Continue Coreg for reduced ejection fraction and rate control. Goal-directed medical therapy limited due to hypotension. BPs 87/57-112/71
Weight stable overnight. Lungs clear, did receive IV Lasix on 05/12 and 05/14 with good response
On levofloxacin for possible UTI
discussed with pt, daughter, granddaughter at bedside.
Progress Note - Performance Improvement Manager
Subjective
Date of Service: May 19, 2025
s/p R thoracentesis
no SOB, CP, palps, lightheadedness
Objective
Labs:
05/19/25 02:54
05/19/25 02:54
Labs
Hgb 11.1 g/dL (12.0-16.0) L 05/19/25 02:54
Hct 34.8 % (37.0-47.0) L 05/19/25 02:54
Plt Count 197 10^3/uL (130-400) 05/19/25 02:54
PT 14.3 Sec (11.4-14.6) 05/12/25 16:02
INR 1.08 05/12/25 16:02
APTT 170.4 Sec (23.4-35.0) H* 05/19/25 11:43
Sodium 135 mmol/L (135-145) 05/19/25 02:54
Potassium 3.9 mmol/L (3.5-5.1) 05/19/25 02:54
BUN 20 mg/dl (7-17) H 05/19/25 02:54
Creatinine 0.8 mg/dL (0.6-1.0) 05/19/25 02:54
Glucose 92 mg/dl (70-99) 05/19/25 02:54
Vital Signs and I&O:
Vital Signs
Temp Pulse Resp BP Pulse Ox
97.5 F 91 18 87/57 99
05/19/25 11:46 05/19/25 11:49 05/19/25 11:46 05/19/25 11:49 05/19/25 11:49
Vital Signs
Temp Pulse Resp BP Pulse Ox
97.5 F 91 18 87/57 99
05/19/25 11:46 05/19/25 11:49 05/19/25 11:46 05/19/25 11:49 05/19/25 11:49
Intake & Output
05/17/25 05/18/25 05/19/25 05/20/25
06:59 06:59 06:59 06:59
Intake Total 972 / 972 960 / 960 720 / 720 150 / 150
Output Total 100 / 100 100 / 100 200 / 200
Balance 872 / 872 960 / 960 620 / 620 -50 / -50
Physical Exam
Physical Exam
GEN: No distress, awake, Ox3
HEENT: supple, anicteric, mmm
LUNGS: decreased R base with crackles
CV: irreg, irreg S1/S2, 1/6 syst LSB
ABD: soft, BS+, NT/ND
EXT: No edema
NEURO: Gross non-focal
SKIN: No rash
--- NOTE | 2025-05-19 14:39 | CM ---
called pts perscript plan- she only has coverage for generic meds.
--- NOTE | 2025-05-19 16:36 | CM ---
priced eliquis, xarelto, and rivaroxaban with pts [facility] rx- she has no coverage for either medication. dt Lianne aware.
[2025-05-19] MEDS: COREG 6.25 MG PO (17:29)
[2025-05-19 20:20] LABS: APTT 65.4 Sec (23.4-35.0)
[2025-05-19] MEDS: MELATONIN 5 MG PO (21:37)
[2025-05-19] MEDS: LIPITOR 20 MG PO (21:37)
[2025-05-20] VITALS (22 sets, daily range): BP systolic 79–130; BP diastolic 48–109; PULSE 102–123; O2SAT 92; BMI 22.4
[2025-05-20] MEDS: HEPARIN 25000 UNITS/250 ML IV (01:24)
--- NOTE | 2025-05-20 01:28 | PTCARENOTE ---
Assumed care on pt at 1900, alert and confused. Afib on the tele monitor, HR 110's. Pox 94% RA, lungs diminished throughout R>L, occ supervisor underwriting clerks cough. Heparin gtt infusing , rate per protocol. Right back dsg CDI, no bleeding noted. Safety precautions in
place, call shipley within reach.
[2025-05-20 03:02] LABS: Hematocrit 33.6 % (37.0-47.0); Hemoglobin 11.3 g/dL (12.0-16.0); Mean Corp Hgb Conc. 33.6 g/dL (33.0-37.0); Mean Corpuscular Volume 93.9 fL (81.0-99.0); Platelet Count 205 10^3/uL (130-400); Red Cell Dist. Width 14.6 % (11.5-14.5)
[2025-05-20 03:12] LABS: APTT 36.9 Sec (23.4-35.0)
[2025-05-20 03:24] LABS: Blood Urea Nitrogen 19 mg/dl (7-17); Calcium 8.7 mg/dl (8.4-10.2); Carbon Dioxide 29 mmol/L (22-30); Chloride 99 mmol/L (98-107); Estimated Creatinine Clearance 41 ml/min; Glucose 82 mg/dl (70-99); Potassium 4.2 mmol/L (3.5-5.1); Sodium 132 mmol/L (135-145); eGFR > 60.00
[2025-05-20 04:24] LABS: APTT 61.4 Sec (23.4-35.0)
[2025-05-20] MEDS: LEXAPRO 10 MG PO (08:20)
[2025-05-20] MEDS: COREG 6.25 MG PO (08:20)
--- NOTE | 2025-05-20 08:21 | W.PN.ONC ---
Today's Communication / Plan
-
IR lung biopsy scheduled for today
Impression
Impression
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
New onset atrial fibrillation with RVR
Dementia
Hypercholesterolemia
Anxiety/depression
Plan
Plan
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
- CT chest 05/13/25: Solid pulmonary masses throughout both lungs highly suspicious for malignancy/metastatic disease. The largest mass measures 5.8 cm in the left upper lobe. Moderate right pleural effusion.
- WBC elevated
- CT abdomen/pelvis on 05/13 unremarkable for primary source
- Diagnostic thoracentesis on 05/13 exudative pleural fluid; culture neg, pathology neg for malignant cells, few reactive mesothelial cells (calretinin+, WT1+), mixed inflamm cells, neg staining for epithelial cells
- Repeat thoracentesis on 05/19: exudative, path and micro pending
- IR lung nodule core biopsy scheduled for today
#New onset atrial fibrillation with RVR
- EKG shows atrial fibrillation in ED
- On Coreg, IV heparin until lung bx then transition to eventual oral anticoagulation
- Echo 05/13: Left ventricular ejection fraction is severely reduced with an ejection fraction of 29 %
- Cardiology following
#Dementia
- daughter states that memantine was recently started for newly diagnosed dementia
#Elevated WBC, possible UTI
- pt denies any urinary symptoms, urine cx pending
- abx as per primary team
# Hypercholesterolemia
# Anxiety/depression
DNR
Subjective/Objective
Subjective/Objective
Patient feels fine today and denies any fever.
Vital Signs:
Vital Signs
Temp Pulse Resp BP Pulse Ox
98.3 F 99 20 100/59 93
05/20/25 07:30 05/20/25 08:20 05/20/25 07:30 05/20/25 08:20 05/20/25 07:30
Lab Results:
Laboratory Data
WBC 18.3 10^3/uL (4.8-10.8) H 05/20/25 02:44
Hgb 11.3 g/dL (12.0-16.0) L 05/20/25 02:44
Plt Count 205 10^3/uL (130-400) 05/20/25 02:44
PT 14.3 Sec (11.4-14.6) 05/12/25 16:02
INR 1.08 05/12/25 16:02
APTT 61.4 Sec (23.4-35.0) H 05/20/25 03:57
eGFR > 60.00 05/20/25 02:44
--- NOTE | 2025-05-20 09:02 | W.PN.HOSP.TC ---
Today's Communication/Plan
-
see A/P
Assessment / Plan
Assessment / Plan
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
effusion.
A/P:
# New onset atrial fibrillation with RVR
IV Cardizem changed to Coreg 3.125 BID, heart rate since improved
D-dimer 1.[address] PE which showed solid pulmonary masses throughout both lungs with moderate right pleural effusion (see below)
TSH 2.79
ECHO showed EF 29%, Left ventricular wall motion is diffusely hypokinetic.
[id number] score of 3
Cont heparin drip until after biopsy of Pulm mets then change to oral regimen
OAC TBD, per CM, pt's insurance does NOT cover for Eliquis or Xarelto
Cardiology on board
# Acute vs Acute on Chronic HFrEF
Cardiac BNP 16,000
s/p IV Lasix 05/12 and 05/14 w/ good response noted
monitor I/O's daily weights
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
s/p IR diagnostic thoracentesis 05/13, cytology result neg for malignancy
CT AP obtained, showed no acute pathology, no evidence of metastatic disease beyond b/l pulm masses as noted prior
Oncology/Pulmonology eval appreciated
Noted R pleural effusion reaccumulated, s/p repeat R thora 05/19, follow repeat cytology from 05/19
Pending IR bx pulmonary masses, plan for 05/20
# Acute hypoxic respiratory insufficiency, resolved
Was placed on 1-2 L NC, weaned back to RA
# Hypercholesterolemia
Continue simvastatin
# Anxiety/depression
# Dementia?
Continue Lexapro
Patient denies being on memantine, listed home medication
# Worsening leucocytosis with foul smelling urine, possible UTI
Pt denies to urinary symptoms but she is not reliable with her current dementia
follow repeat urine Cx from 05/18
empirically cover with Levaquin x3 days
DVT prophylaxis�heparin drip
DNR DNI per pt and daughter
DW daughter at bedside
total time 51 min
Anticipated Discharge: 24 - 48 hours
Subjective/Interval History
-
Date of Service: May 20, 2025
Objective Data
-
Labs:
Laboratory Results
05/20/25 05/20/25 05/20/25
02:44 03:57 09:20
WBC 18.3 H
Hgb 11.3 L
Hct 33.6 L
Plt Count 205
APTT 36.9 H 61.4 H Pending
Sodium 132 L
Potassium 4.2
Chloride 99
Carbon Dioxide 29
BUN 19 H
Creatinine 0.7
Glucose 82
Calcium 8.7
Vital Signs:
Vital Signs
Temp Pulse Resp BP Pulse Ox
36.8 C 99 20 100/59 93
05/20/25 07:30 05/20/25 08:20 05/20/25 07:30 05/20/25 08:20 05/20/25 07:30
I&O
05/19/25 05/20/25 05/21/25
06:59 06:59 06:59
Intake Total 720 / 720 810 / 810
Output Total 100 / 100 200 / 200
Balance 620 / 620 610 / 610
Review of Systems
-
History Source: Patient
All other systems: Reviewed and negative
Genitourinary: Reports No Symptoms; Denies Dysuria or Frequency
Physical Exam
-
General: Well Developed, Well Nourished, No Apparent Distress, Comfortable and Conversant
HEENT: Normocephalic and Atraumatic
Respiratory: Non Labored Respirations; Negative Clear to Auscultation, Wheezes, Rhonchi or Accessory Resp Muscle Use
Cardiac: Regular Rhythm and S1/S2; Negative Murmur, Rub or Gallop
GI: Soft, Nontender, Nondistended and Normal Bowel Sounds
Musculoskeletal: No Edema
Skin: Warm and Dry; Negative Rash, Ulcers or Lesions
Neuro: Awake and Alert
Psych: Calm and Intact Judgement/Insight (somewhat)
Data Reviewed
-
Diagnostic Radiology: Report Reviewed by me
CT Scan: Image personally visualized and interpreted, Discussed with Patient and Discussed with Family
Labs: Labs Reviewed by me, Discussed with Patient and Discussed with Family
--- NOTE | 2025-05-20 10:22 | W.PN.CARDCBS ---
Addendum entered and electronically signed by Lisa Manzanares DO 05/20/25 12:20:
I saw and examined the patient.
The Mental Hygiene Consultant's note was reviewed and I agree with the note.
Comment: Patient seen and examined with daughter at bedside. Lying supine with no complaints. N.p.o. for lung biopsy today
GEN: NAD laying supine. Room air
HEENT: mmm
LUNGS: Bronchovesicular breath sounds, clear
CV: Irreg, S1/S2, no murmur
ABD: soft, BS+, NT/ND
EXT: No lower extremity edema
NEURO: Gross non-focal
Plan:
New diagnosis of asymptomatic atrial fibrillation
- Rate control strategy
-Continue carvedilol 6.25 mg twice daily
- IV heparin drip awaiting procedures. Eventual plan to transition to Eliquis 2.5 mg twice daily
-TSH 2.79
- Outpatient cardiac follow-up to be arranged
New diagnosis of cardiomyopathy, EF 30% with mild to moderate MR, moderate TR and mildly increased pulmonary pressures estimated 39 mmHg
- No chest pain. Cardiac troponin 8/eleven 0.014
-Appears euvolemic not requiring IV Lasix
- Goal-directed medical therapy limited by hypotension: Continue carvedilol.
- Consider adding low-dose ALE inhibitor if blood pressure allows
- Consider addition of SGLT2 inhibitor prior to discharge or as an outpatient as she is currently receiving Levaquin for UTI
-Continue atorvastatin
- Eventual ischemic evaluation to be considered
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
- Pulmonary and oncology consulted
- Lung biopsy planned today
Will sign off, recall if needed. Once she has completed necessary procedures for workup of pulmonary metastatic disease, please start oral anticoagulation and stop IV heparin. Would start Eliquis 2.5 mg twice daily unless oncology has other
recommendations.
Original Note:
Today's Communication / Plan
-
For lung biopsy today
And adequately controlled atrial fibrillation. Continue Coreg
Continue IV heparin. Plan to transition to Eliquis 2.5 mg twice daily when no further procedures planned
Will arrange outpatient cardiac follow-up
Impression / Plan
-
Primary Industrial Commercial Groundskeeper: none prior to admission
Assessment:
Presented with SOB
Mod R pleural effusion
s/p R thoracentesis for 1050 cc 05/13/25, exudative
Repeat R thoracentesis 1050 cc serosanguineous pleural fluid 05/19/2025
Cardiomyopathy, EF 30% by echo
B/L lung masses, concern for malignancy
Atrial fibrillation with RVR, new diagnosis of unclear duration
HLD
Anxiety/depression
Former smoker
Dementia
DNR code status
ECHO 05/13/2025: EF 30%, diffuse hypokinesis of LV, mild LVH, moderate MAC, mild to moderate MR, moderate TR, PAP 39 mmHg, pleural effusion noted
Plan:
-for lung biopsy in IR 05/20/25
-remains in afib with adequate vent response on review of tele overnight. continue coreg 6.25mg BID, cannot uptitrate further given relative hypotension
-continue IV heparin for now. discussed OAC options with patient and daughter at bedside. despite eliquis not being covered by insurance, they would like to move forward with eliquis 2.5mg BID when no further procedures planned
-follow daily weights, unclear if accurate. received IV lasix 05/12 and 05/14 with good response. underwent R thoras on 05/13 and 05/19 will follow, appears well compensated today
-On levofloxacin for possible UTI
-discussed potential for eventual CV as OP when no additional procedures planned from oncologic standpoint
-Will arrange outpatient cardiac follow-up
-discussed with pt and daughter at bedside. d/w nursing
Progress Note - Industrial Commercial Groundskeeper
Subjective
Date of Service: May 20, 2025
No complaints at present
Objective
Labs:
05/20/25 02:44
05/20/25 02:44
Labs
Hgb 11.3 g/dL (12.0-16.0) L 05/20/25 02:44
Hct 33.6 % (37.0-47.0) L 05/20/25 02:44
Plt Count 205 10^3/uL (130-400) 05/20/25 02:44
PT 14.3 Sec (11.4-14.6) 05/12/25 16:02
INR 1.08 05/12/25 16:02
APTT 61.4 Sec (23.4-35.0) H 05/20/25 03:57
Sodium 132 mmol/L (135-145) L 05/20/25 02:44
Potassium 4.2 mmol/L (3.5-5.1) 05/20/25 02:44
BUN 19 mg/dl (7-17) H 05/20/25 02:44
Creatinine 0.7 mg/dL (0.6-1.0) 05/20/25 02:44
Glucose 82 mg/dl (70-99) 05/20/25 02:44
Vital Signs and I&O:
Vital Signs
Temp Pulse Resp BP Pulse Ox
98.3 F 99 20 100/59 93
05/20/25 07:30 05/20/25 08:20 05/20/25 07:30 05/20/25 08:20 05/20/25 07:30
Vital Signs
Temp Pulse Resp BP Pulse Ox
98.3 F 99 20 100/59 93
05/20/25 07:30 05/20/25 08:20 05/20/25 07:30 05/20/25 08:20 05/20/25 07:30
Intake & Output
05/18/25 05/19/25 05/20/25 05/21/25
07:59 07:59 07:59 07:59
Intake Total 960 / 960 720 / 720 810 / 810
Output Total 100 / 300 200 / 200
Balance 960 / 960 620 / 420 610 / 610
Physical Exam
Physical Exam
GEN: No distress, awake, alert, oriented x3
HEENT: supple, anicteric, mmm, EOMI
LUNGS: CTA bilaterally anterolaterally, no wheezes/rales
CV: Irreg, S1/S2, no murmur
ABD: soft, BS+, NT/ND
EXT: No cyanosis, clubbing, edema
NEURO: Gross non-focal
SKIN: Warm, pink, dry. No rash
[2025-05-20 10:23] LABS: APTT 106.8 Sec (23.4-35.0)
--- NOTE | 2025-05-20 15:33 | W.PN.PUL.V3 ---
Today's Communication / Plan
-
Lung biopsy today
Wean oxygen
Thoracentesis 05/19/25, cytology pending
Assessment
-
Patient is an 79-year-old female with previous history of depression, dementia, hypercholesterolemia presenting for worsening shortness of breath of the past 2 months with exertion. She does have cough complaints, no sputum production, fever or
chills. She had gone to urgent care as an outpatient and had EKG demonstrating new onset atrial fibrillation. Chest x-ray obtained also indicating new pleural effusion. She had initial CT scan demonstrating numerous pulmonary nodules suspicious
for primary lung cancer with pleural effusion. Underwent thoracentesis on 05/13/2025, we are consulted for eval 05/16/25.
Pleural effusion s/p thoracentesis on 05/13/2025 with removal of 1050 mL of clear yellow fluid and another liter removed on 05/19/2025
Newly detected Pulmonary masses
New onset Afib
BOBO
Weight loss, 80lbs
Hyponatremia, mild
Metabolic alkalosis
Leukocytosis
New CHFrEF
Conditions present prior to admission:
Depression
Dementia
Hypercholesterolemia
Former smoker, half a pack a day for 15 years, quit over 30 years ago
Plan
Prior history of lung disease is NOT noted -- She is a former smoker, half a pack a day for 15 years, quit over 30 years ago.
She has never been diagnosed previously with lung conditions, never seen pulmonary in the past.
She denies family history of lung cancer.
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
Respiratory status improved after repeat thoracentesis
Supplemental oxygen as needed
Aspiration precautions
Incentive spirometry
Nebulizers as needed
Mucolytic's
Mucus clearing devices
Thoracentesis 05/13/2025 noted
Repeat thoracentesis 05/19/2025-reportedly -1 L,-exudate, microbiology and pathology pending
Suspect patient has primary metastatic lung cancer based on imaging
CXR/CT obtained/reviewed personally, underwent thoracentesis on 05/13/25 with culture and cytology negative for malignant cells (yield tends to be low however)
Chem: pH 7.5 - wbc 1045 - glu 109 - tp 3.4 - ldh 152 - tg <30 -- exudate
Oncology following-correspondence reviewed
Dr. Love reviewed potential need for PleurX catheter with patient as well as daughter with recurrent fairly rapid reaccumulation of pleural fluid on 05/19/[address]
Dr[address] Love reviewed with daughter and patient whether she would pursue treatment of potential underlying lung cancer and her answer was she would consider it and thus biopsy is appropriate on 05/19/25
IR guided lung mass biopsy 05/20/25-Pending
New onset A-fib noted on EKG
She is placed on IV heparin
Cardio following
ECHO-reduced EF 29%, LV wall motion is diffusely hypokinetic
She has mild to moderate valvular heart disease
Further management per team
Smoking history noted--denies family history of lung cancer
She had been obtaining her routine mammograms and colonoscopies, her daughter is not sure when she stopped doing those
80 pound weight loss is noted
Consideration for nutrition consult
Will need outpatient pulmonary evaluation in our office for PFTs and 6MWT
Out patient f/u with [facility].
Diagnostic Data
Chest X-Ray:
CT Scan:
Echo: 05/13/25- 1. Left ventricular ejection fraction is severely reduced with an ejection fraction of 29 % by Owusu's biplane method of discs.
2. Indexed left atrial volume is severely abnormal (>48 ml/m2).
3. Left ventricular wall motion is diffusely hypokinetic.
4. Mild left ventricular hypertrophy.
5. Mildly dilated right atrium.
6. Moderate mitral annular calcification. mild to moderate mitral valve regurgitation.
7. Moderate tricuspid regurgitation.
8. Pleural effusion is noted.
9. Tricuspid valve opens normally. moderate tricuspid regurgitation. Estimated pulmonary artery pressure of 39 mmHg assuming a right atrial pressure of 3 mmHg.
Reports and relevant images were personally reviewed.
Subjective Data
-
Date of Service:
Date of Service: May 20, 2025
Chief Complaint: Pulmonary Follow Up and Dyspnea Follow Up
Subjective:
Patient seen 8:30 this morning, no complaints shortness of breath, chest pain, pleurisy, abdominal pain or leg swelling
Review of Systems
General: Other ( per HPI)
Objective Data
Data Reviewed
Vital Signs / I&O:
Vital Signs
Temp Pulse Resp BP Pulse Ox
97.6 F 109 15 107/56 93
05/20/25 14:25 05/20/25 14:25 05/20/25 14:25 05/20/25 14:25 05/20/25 14:25
Intake and Output
05/19/25 05/20/25 05/21/25
06:59 06:59 06:59
Intake Total 720 / 720 810 / 810
Output Total 100 / 100 200 / 200
Balance 620 / 620 610 / 610
SaO2: 93
Nasal Cannula flow liters per minute: 2
Physical Exam
General: Respiratory Distress (n) and Comfortable
HEENT: Normocephalic
Cardiovascular: Regular Rhythm and Murmur
Respiratory: Clear, Non-Labored Respirations, Accessory Resp Muscle Use (n) and Stridor (n)
GI: Soft and Non Distended
Neurology: Awake and No Motor Deficits
Skin: Warm, Good Color, Cyanosis (n) and Jaundice (n)
Labs/Micro/Reports
Lab Data
05/20/25 02:44
05/20/25 02:44
Laboratory Results
05/19/25 05/20/25 05/20/25
19:58 02:44 03:57
APTT 65.4 H 36.9 H 61.4 H
05/20/25
09:59
APTT 106.8 H
Microbiology
05/18/25 16:20 Urine Urine Culture - Preliminary
Gram negative bacilli
05/19/25 09:14 Pleural Fluid Body Fluid Culture - Preliminary
No Growth After 18-24 Hours
05/19/25 09:14 Pleural Fluid Gram Stain - Preliminary
--- NOTE | 2025-05-20 15:50 | W.PN.UPDATE ---
Addendum entered and electronically signed by Margarito Brenner MD 05/20/25 17:29:
There was a small amount of bleeding into lung parenchyma during biopsy. Please hold heparin until tomorrow morning, OK to restart therapeutic heparin tomorrow morning.
Original Note:
Update Note
Progress Note Update
Left lung biopsy performed. No immediate complications, patient tolerated well.
--- NOTE | 2025-05-20 17:00 | PTCARENOTE ---
Pt returned from [facility] s/p left lung biopsy. VSS, monitor continues to show AFIB. Bandaid intact to left anterior chest wall, no drainage noted. Denies pain at present. Heparin drip remains on hold until AM 8/20, per Dr. Brenner. Daughter at
bedside, pt resting comfortably.
[2025-05-20] MEDS: LIPITOR 20 MG PO (22:19)
[2025-05-20] MEDS: COREG PO (22:20)
--- NOTE | 2025-05-21 00:55 | PTCARENOTE ---
Assumed care on pt at 1900, drowsy and weak, dsg to LCW clean and intact, no bleeding or swelling noted. Afib on the tele monitor, HR 100's resting and 120's with ambulation.Coreg held tonight for sbp <100. Pox 92% RA, lungs diminished throughout
R>L, occ insole doubler cough. Heparin gtt on hold per order. Right flank dsg CDI, no bleeding noted. Safety precautions in place, call shipley within reach.
--- NOTE | 2025-05-21 03:06 | DOWNTIME ---
There was a [employer] Safety Program Coordinator Downtime on 05/21/2025 from 0100 to 05/21/2025 at 0235. Downtime documentation of patient's care, including medication administrations, has been reconciled in the electronic record per guidelines. Refer to the
patient's paper chart under the miscellaneous tab to see printed paper medication records and downtime forms.
[2025-05-21 05:09] VITALS: BP 111/74
[2025-05-21 05:26] LABS: Hematocrit 36.3 % (37.0-47.0); Hemoglobin 11.8 g/dL (12.0-16.0); Mean Corp Hgb Conc. 32.5 g/dL (33.0-37.0); Mean Corpuscular Volume 95.8 fL (81.0-99.0); Platelet Count 209 10^3/uL (130-400); Red Cell Dist. Width 15.1 % (11.5-14.5)
[2025-05-21 05:49] VITALS: BMI 21.9
[2025-05-21 05:51] LABS: Blood Urea Nitrogen 17 mg/dl (7-17); Calcium 9.2 mg/dl (8.4-10.2); Carbon Dioxide 28 mmol/L (22-30); Chloride 102 mmol/L (98-107); Estimated Creatinine Clearance 41 ml/min; Glucose 89 mg/dl (70-99); Potassium 4.6 mmol/L (3.5-5.1); Sodium 133 mmol/L (135-145); eGFR > 60.00
--- NOTE | 2025-05-21 07:35 | W.PN.ONC ---
Today's Communication / Plan
-
lung biopsy results pending
Impression
Impression
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
New onset atrial fibrillation with RVR
Dementia
Hypercholesterolemia
Anxiety/depression
Plan
Plan
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
- CT chest 05/13/25: Solid pulmonary masses throughout both lungs highly suspicious for malignancy/metastatic disease. The largest mass measures 5.8 cm in the left upper lobe. Moderate right pleural effusion.
- WBC elevated
- CT abdomen/pelvis on 05/13 unremarkable for primary source
- Diagnostic thoracentesis on 05/13 exudative pleural fluid; culture neg, pathology neg for malignant cells, few reactive mesothelial cells (calretinin+, WT1+), mixed inflamm cells, neg staining for epithelial cells
- Repeat thoracentesis on 05/19: exudative, micro with no growth and path pending
- IR lung nodule core biopsy done on 05/20, results pending
#New onset atrial fibrillation with RVR
- EKG shows atrial fibrillation in ED
- On Coreg, IV heparin until lung bx then transition to eventual oral anticoagulation
- Echo 05/13: Left ventricular ejection fraction is severely reduced with an ejection fraction of 29 %
- Cardiology following
#Dementia
- daughter states that memantine was recently started for newly diagnosed dementia
#Elevated WBC, possible UTI
- pt denies any urinary symptoms, urine cx showing klebsiella pneumoniae
- abx as per primary team
# Hypercholesterolemia
# Anxiety/depression
DNR
Subjective/Objective
Subjective/Objective
Patient feels fine post lung biopsy procedure. Denies any fever.
Vital Signs:
Vital Signs
Temp Pulse Resp BP Pulse Ox
99.0 F 111 18 111/74 92
05/21/25 05:00 05/21/25 06:00 05/21/25 05:00 05/21/25 05:09 05/21/25 05:00
Lab Results:
Laboratory Data
WBC 17.6 10^3/uL (4.8-10.8) H 05/21/25 05:14
Hgb 11.8 g/dL (12.0-16.0) L 05/21/25 05:14
Plt Count 209 10^3/uL (130-400) 05/21/25 05:14
PT 14.3 Sec (11.4-14.6) 05/12/25 16:02
INR 1.08 05/12/25 16:02
APTT 106.8 Sec (23.4-35.0) H 05/20/25 09:59
eGFR > 60.00 05/21/25 05:14
[2025-05-21 07:44] VITALS: BP 108/67
[2025-05-21] MEDS: ELIQUIS 2.5 MG PO (09:30)
[2025-05-21] MEDS: LEXAPRO 10 MG PO (09:31)
[2025-05-21] MEDS: COREG 6.25 MG PO (09:31)
[2025-05-21] MEDS: FLUSH (NSS) 2 FLUSH IV (09:31)
--- NOTE | 2025-05-21 10:11 | PTCARENOTE ---
Patient resting in bed this morning, daughter at the bedside. Band aid left anterior upper chest is dry and intact. 2x2 dressing right posterior back is dry and intact. Patient started on eliquis this AM, offers no complaints at this time.
--- NOTE | 2025-05-21 10:24 | W.PN.PUL.V3 ---
Today's Communication / Plan
-
.
Increase activity.
Overweight lung biopsy pathology.
Outpatient oncology follow-up
Assessment
-
Patient is an 79-year-old female with previous history of depression, dementia, hypercholesterolemia presenting for worsening shortness of breath of the past 2 months with exertion. She does have cough complaints, no sputum production, fever or
chills. She had gone to urgent care as an outpatient and had EKG demonstrating new onset atrial fibrillation. Chest x-ray obtained also indicating new pleural effusion. She had initial CT scan demonstrating numerous pulmonary nodules suspicious
for primary lung cancer with pleural effusion. Underwent thoracentesis on 05/13/2025, we are consulted for eval 05/16/25.
Pleural effusion s/p thoracentesis on 05/13/2025 with removal of 1050 mL of clear yellow fluid and another liter removed on 05/19/2025
Newly detected Pulmonary masses
New onset Afib
BOBO
Weight loss, 80lbs
Hyponatremia, mild
Metabolic alkalosis
Leukocytosis
New CHFrEF
Conditions present prior to admission:
Depression
Dementia
Hypercholesterolemia
Former smoker, half a pack a day for 15 years, quit over 30 years ago
Plan
Prior history of lung disease is NOT noted -- She is a former smoker, half a pack a day for 15 years, quit over 30 years ago.
She has never been diagnosed previously with lung conditions, never seen pulmonary in the past.
She denies family history of lung cancer.
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
Respiratory status improved after repeat thoracentesis
Supplemental oxygen as needed
Aspiration precautions
Incentive spirometry
Nebulizers as needed
Mucolytic's
Mucus clearing devices
Thoracentesis 05/13/2025 noted
Repeat thoracentesis 05/19/2025-reportedly -1 L,-exudate, microbiology and pathology pending
Suspect patient has primary metastatic lung cancer based on imaging
CXR/CT obtained/reviewed personally, underwent thoracentesis on 05/13/25 with culture and cytology negative for malignant cells (yield tends to be low however)
Chem: pH 7.5 - wbc 1045 - glu 109 - tp 3.4 - ldh 152 - tg <30 -- exudate
Oncology following-correspondence reviewed
Dr. Love reviewed potential need for PleurX catheter with patient as well as daughter with recurrent fairly rapid reaccumulation of pleural fluid on 05/19/25
Dr. Love reviewed with daughter and patient whether she would pursue treatment of potential underlying lung cancer and her answer was she would consider it and thus biopsy is appropriate on 05/19/25.
Dr. Love reviewed. Current clinical situation with daughter. On 05/20/25 and again on 05/21/25
IR guided lung mass biopsy 05/20/25-Pathology pending
New onset A-fib noted on EKG
She is placed on IV heparin
Cardio following
ECHO-reduced EF 29%, LV wall motion is diffusely hypokinetic
She has mild to moderate valvular heart disease
Further management per team
Smoking history noted--denies family history of lung cancer
She had been obtaining her routine mammograms and colonoscopies, her daughter is not sure when she stopped doing those
80 pound weight loss is noted
Consideration for nutrition consult.
Stable for proposed discharge from a pulmonary perspective
Will need outpatient pulmonary evaluation in our office for PFTs and 6MWT
Out patient f/u with [facility].
Diagnostic Data
Chest X-Ray:
CT Scan:
Echo: 05/13/25- 1. Left ventricular ejection fraction is severely reduced with an ejection fraction of 29 % by Owusu's biplane method of discs.
2. Indexed left atrial volume is severely abnormal (>48 ml/m2).
3. Left ventricular wall motion is diffusely hypokinetic.
4. Mild left ventricular hypertrophy.
5. Mildly dilated right atrium.
6. Moderate mitral annular calcification. mild to moderate mitral valve regurgitation.
7. Moderate tricuspid regurgitation.
8. Pleural effusion is noted.
9. Tricuspid valve opens normally. moderate tricuspid regurgitation. Estimated pulmonary artery pressure of 39 mmHg assuming a right atrial pressure of 3 mmHg.
Reports and relevant images were personally reviewed.
Subjective Data
-
Date of Service:
Date of Service: May 21, 2025
Chief Complaint: Pulmonary Follow Up and Dyspnea Follow Up
Subjective:
Feels well, no complaints of shortness breath, chest pain or abdominal pain
Review of Systems
General: Other ( per HPI)
Objective Data
Data Reviewed
Vital Signs / I&O:
Vital Signs
Temp Pulse Resp BP Pulse Ox
98 F 133 20 108/67 93
05/21/25 07:54 05/21/25 07:44 05/21/25 07:54 05/21/25 07:44 05/21/25 07:54
Intake and Output
05/20/25 05/21/25 05/22/25
06:59 06:59 06:59
Intake Total 810 / 810 290 / 290
Output Total 200 / 200
Balance 610 / 610 290 / 290
SaO2: 93
Nasal Cannula flow liters per minute: 2
Physical Exam
General: Respiratory Distress (n) and Comfortable
HEENT: Normocephalic
Cardiovascular: Regular Rhythm and Murmur
Respiratory: Clear, Non-Labored Respirations, Accessory Resp Muscle Use (n) and Stridor (n)
GI: Soft and Non Distended
Neurology: Awake and No Motor Deficits
Skin: Warm, Good Color, Cyanosis (n) and Jaundice (n)
Labs/Micro/Reports
Lab Data
05/21/25 05:14
05/21/25 05:14
Laboratory Results
05/20/25
09:59
APTT 106.8 H
Microbiology
05/18/25 16:20 Urine Urine Culture - Final
Klebsiella pneumoniae
05/19/25 09:14 Pleural Fluid Body Fluid Culture - Preliminary
No Growth After 18-24 Hours
05/19/25 09:14 Pleural Fluid Gram Stain - Preliminary
--- NOTE | 2025-05-21 10:49 | W.PN.HOSP.TC ---
Today's Communication/Plan
-
DC today
Assessment / Plan
Assessment / Plan
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
effusion.
A/P:
# New onset atrial fibrillation with RVR
IV Cardizem changed to Coreg 3.125 BID, heart rate since improved
D-dimer 1.[address] PE which showed solid pulmonary masses throughout both lungs with moderate right pleural effusion (see below)
TSH 2.79
ECHO showed EF 29%, Left ventricular wall motion is diffusely hypokinetic.
[id number] score of 3
now transitioned to Eliquis 2.5 mg BID
Cardiology on board
# Acute vs Acute on Chronic HFrEF
Cardiac BNP 16,000
s/p IV Lasix 05/12 and 05/14 w/ good response noted
monitor I/O's daily weights
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
s/p IR diagnostic thoracentesis 05/13, cytology result neg for malignancy
CT AP obtained, showed no acute pathology, no evidence of metastatic disease beyond b/l pulm masses as noted prior
Oncology/Pulmonology eval appreciated
Noted R pleural effusion reaccumulated, s/p repeat R thora 05/19, follow repeat cytology from 05/19
s/p IR lung biopsy 05/20 , follow path outpt
# Acute hypoxic respiratory insufficiency, resolved
Was placed on 1-2 L NC, weaned back to RA
# Hypercholesterolemia
Continue simvastatin
# Anxiety/depression
# Dementia?
Continue Lexapro
Patient denies being on memantine, listed home medication
# Worsening leucocytosis with foul smelling urine, possible UTI
Pt denies to urinary symptoms but she is not reliable with her current dementia
follow repeat urine Cx from 05/18
empirically covered with Levaquin x3 days
DVT prophylaxis�heparin drip -> Eliquis
DNR DNI per pt and daughter
DW daughter at bedside
DW RN
Anticipated Discharge: Today
Subjective/Interval History
-
Date of Service: May 21, 2025
Objective Data
-
Labs:
Laboratory Results
05/21/25
05:14
WBC 17.6 H
Hgb 11.8 L
Hct 36.3 L
Plt Count 209
Sodium 133 L
Potassium 4.6
Chloride 102
Carbon Dioxide 28
BUN 17
Creatinine 0.7
Glucose 89
Calcium 9.2
Vital Signs:
Vital Signs
Temp Pulse Resp BP Pulse Ox
36.6 C 133 20 108/67 93
05/21/25 07:54 05/21/25 07:44 05/21/25 07:54 05/21/25 07:44 05/21/25 10:24
I&O
05/20/25 05/21/25 05/22/25
06:59 06:59 06:59
Intake Total 810 / 810 290 / 290
Output Total 200 / 200
Balance 610 / 610 290 / 290
Review of Systems
-
History Source: Patient
All other systems: Reviewed and negative
Respiratory: Reports No Symptoms
Genitourinary: Reports No Symptoms; Denies Dysuria or Frequency
Physical Exam
-
General: Well Developed, Well Nourished, No Apparent Distress, Comfortable and Conversant
HEENT: Normocephalic and Atraumatic
Respiratory: Non Labored Respirations; Negative Clear to Auscultation, Wheezes, Rhonchi or Accessory Resp Muscle Use
Cardiac: Regular Rhythm and S1/S2; Negative Murmur, Rub or Gallop
GI: Soft, Nontender, Nondistended and Normal Bowel Sounds
Musculoskeletal: No Edema
Skin: Warm and Dry; Negative Rash, Ulcers or Lesions
Neuro: Awake and Alert
Psych: Calm and Intact Judgement/Insight (somewhat)
Data Reviewed
-
Diagnostic Radiology: Report Reviewed by me
CT Scan: Image personally visualized and interpreted, Discussed with Patient and Discussed with Family
Labs: Labs Reviewed by me, Discussed with Patient and Discussed with Family
[2025-05-21] MEDS: LEVAQUIN IV (11:35)
[2025-05-21] MEDS: LEVAQUIN 750 MG PO (11:35)
--- NOTE | 2025-05-21 11:43 | W.DCSUMMARY ---
Discharge Summary
Discharge Data
Date of Admission: 05/12/25
Date of Discharge: 05/21/25
Total time spent discharging patient (in min): 40
-
Pending Results: No
Hospital Course
Principal Diagnosis:
New onset atrial fibrillation with RVR on admission
Mild acute HFrEF
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
Leucocytosis with foul smelling urine, possible UTI although urine culture grew mixed raffi
Chronic Diagnoses:�
Hypercholesterolemia, on simvastatin
Anxiety/depression
Consultations:�
Cardiology
Pulmonary
Interventional radiology
Oncology
Procedures:�
IR R thoracentesis x2 (05/13 and 05/19)
IR lung biopsy on 05/20, follow path report outpatient
Clinical course:�
This is a 79-year-old female with past medical history as stated above, who presented with shortness of breath ongoing for 2 months.
She was noted to be in A-fib RVR on admission.
Problem 1:
New onset atrial fibrillation with RVR on admission.
This was associated with mild acute HFrEF.
The patient received IV Cardizem on admission, and this was subsequently changed to Coreg. She was discharged with Coreg 6.25 mg twice daily.
Her D-dimer was noted to be elevated at 1.5, which prompted CT PE, which showed solid pulmonary masses throughout both lungs with moderate right pleural effusion (see below).
Her [id number] score was at 3.
She received IV heparin drip while in the hospital and was discharged with Eliquis 2.5 mg twice daily going forward.
Her ECHO showed EF 29%, Left ventricular wall motion is diffusely hypokinetic.
She received IV Lasix as needed with good response.
Problem 2:
New discovery of pulmonary metastatic disease with likely malignant right pleural effusion, unclear primary.
Her CT abdomen pelvis showed no acute pathology, no evidence of metastatic disease.
She underwent IR right thoracentesis x 2 while in the hospital (05/13 and 05/19).
Cytology from the first thoracentesis was negative for malignant cells.
She has been informed to follow-up the cytology results from the second thoracentesis outpatient.
She also underwent IR directed lung biopsy on 05/20/2025, and has been informed to follow-up the pathology report outpatient with her oncologist.
Problem 3:
Leucocytosis with foul smelling urine, possible UTI.
Although the patient denies to urinary symptoms, she is not a reliable historian with possible dementia.
Her urine culture grew Klebsiella.
She received Levaquin while in the hospital.
As for the rest of her medical problems, they were stable during her hospital stay.
Discharge Plan
-
Patient Disposition: Home with Home Care
Discharge Diagnosis/Procedures: New discovery of pulmonary metastatic disease with likely malignant right pleural effusion (unclear primary);
Status post R thoracentesis x2;
Status post left lung biopsy by IR 05/20/2025;
New onset atrial fibrillation with RVR
Condition: Fair
Diet: As tolerated
Activity: As tolerated
Driving Restrictions: As prior to admission
Blood Work: CBC in 1 week, result to PCP
Specialty Instructions: Weigh Daily- Call MD for wt gain/loss 3 lbs overnight/5 lbs in 1 week
Activity Restrictions/Additional Instructions:
Follow up R thoracentesis cytology result from 05/19
Follow up lung biopsy pathology result from 05/20
Instructions: *[facility] Heart Failure Instructions
Referrals:
Leilani Mckoy MD [Family Provider, Internal Medicine] - in less than 1 week
Denise Humphrey PA-C [Specified Professional Personl, Cardiology] - 06/10/25 2:00 pm
Referral Note: You have a cardiology follow up appointment at the [place] office. Please call with questions.
Leslee Bauer, DO [Active, Pulmonary Medicine] - in two weeks
Referral Note: PFT
Additional Discharge Medication Instructions: You were started with Eliquis 2.5 mg twice daily, continue going forward
You were started with coreg for rate control, continue going forward.
Prescriptions:
New
carvedilol 6.25 mg Tablet
6.25 mg PO BID Qty: 60 0RF
Eliquis 2.5 mg Tablet
2.5 mg PO BID Qty: 60 0RF
(DME) CBC with differential
See Rx Instructions .Route .MEDSUPPLY Qty: 1 0RF
Rx Instructions:
within 1 week (05/23-05/30), result to PCP
# metastatic lung cancer
Continued
simvastatin [Zocor] 40 mg Tablet
40 mg PO HS
Unisom (doxylamine) 25 mg Tablet
25 mg PO HSPRN PRN (Reason: SLEEP)
escitalopram oxalate [Lexapro] 10 mg Tablet
10 mg PO DAILY
memantine 5 mg Tablet
5 mg PO BID
Discharge Orders:
Discharge Patient (As Directed); Ordered 05/21/25
Ordered By: Abimbola Abdalla
Care Plan Goals
Care Plan Goals:
Problem: Readiness for enhanced knowledge related to diagnosis and treatment plan
Goal: Understand your diagnosis and treatment plan needs, including medications if applicable.
Instructions: Know your diagnosis, underlying causes and treatment plan options, including medications if applicable. Consult with your health care team to learn about your diagnosis and treatment plan, including medications if applicable.
Discharge Date and Time
Print Language: ARMENIAN
[2025-05-21 11:54] VITALS: BP 93/50
--- NOTE | 2025-05-21 13:27 | PTCARENOTE ---
Patient started on eliquis and given PO dose of levaquin and is cleared for discharge. Due to the patient's poor short term memory, reviewed all instructions with the patient's daughter who she lives with. Aware of follow up appointments, new
medications and lab work needed next week. Discharged the patient home with her daughter.
== END 2025-05-21 13:38 | disposition home or self-care (01) | DRG 180 ==
LOC: IVU 23:50
PROVIDERS: Internal Medicine; Internal Medicine Cardiovascular Disease; Nurse Practitioner Gerontology; Radiology Diagnostic Radiology; Radiology Vascular & Interventional Radiology; ADMITTING PHYSICIAN Hospitalist; ATTENDING PHYSICIAN Internal Medicine; CONSULT PHYSICIAN Internal Medicine; EMERGENCY PHYSICIAN Emergency Medicine; FAMILY PHYSICIAN Internal Medicine; OTHER PHYSICIAN Internal Medicine Hematology & Oncology; OTHER PHYSICIAN Nuclear Medicine Nuclear Cardiology
PROC: 0W993ZZ Drainage of Right Pleural Cavity, Percutaneous Approach (ICD-10-PCS; 2025-05-15)
PROC: 0BBG3ZX Excision of Left Upper Lung Lobe, Percutaneous Approach, Diagnostic (ICD-10-PCS; 2025-05-20)
DX: C78.00 Secondary malignant neoplasm of unspecified lung (principal); I50.21 Acute systolic (congestive) heart failure; J91.0 Malignant pleural effusion; N39.0 Urinary tract infection, site not specified; F03.94 Unspecified dementia, unspecified severity, with anxiety; F03.93 Unspecified dementia, unspecified severity, with mood disturbance; E87.1 Hypo-osmolality and hyponatremia; E87.3 Alkalosis; I48.91 Unspecified atrial fibrillation; D72.829 Elevated white blood cell count, unspecified; E78.00 Pure hypercholesterolemia, unspecified; F32.A Depression, unspecified; Z79.01 Long term (current) use of anticoagulants; B96.1 Klebsiella pneumoniae [K. pneumoniae] as the cause of diseases classified elsewhere; Z87.891 Personal history of nicotine dependence; I34.81 Nonrheumatic mitral (valve) annulus calcification; I34.0 Nonrheumatic mitral (valve) insufficiency; I07.1 Rheumatic tricuspid insufficiency; Z66 Do not resuscitate; Z79.899 Other long term (current) drug therapy; Z80.52 Family history of malignant neoplasm of bladder; Z80.6 Family history of leukemia; Z88.0 Allergy status to penicillin; Z88.1 Allergy status to other antibiotic agents; Z96.653 Presence of artificial knee joint, bilateral
CPT/HCPCS: 32408; 32555; 71045; 71046; 71275; 74177; 80048; 80053; 81003; 81015; 82150; 82378; 82945; 83615; 83735; 83880; 83986; 84100; 84155; 84157; 84443; 84478; 84484; 85025; 85027; 85379; 85610; 85730; 87015; 87070; 87077; 87086; 87186; 87205; 88112; 88305; 88333; 88341; 88342; 89051; 93005; 93306; 96374; 96375; 96376; 97162; 97166; 97535; 99152; 99153; 99285; Q9967

== ENCOUNTER → 2025-06-06 07:56 | Outpatient (REF) | payer MEDICARE, SELFPAY ==
[2025-06-06 08:10] VITALS: BP 105/80; BP_SYST 104
[2025-06-06 08:50] VITALS: BP 95/69
== END ==
LOC: RADI 07:56
PROVIDERS: ATTENDING PHYSICIAN Internal Medicine Hematology & Oncology
DX: J90 Pleural effusion, not elsewhere classified (principal)
CPT/HCPCS: 32555; 71045

== ENCOUNTER 2025-06-13 13:25 | Inpatient (IN) | payer MEDICARE, SELFPAY ==
[2025-06-13] VITALS (11 sets, daily range): BP systolic 98–129; BP diastolic 69–88; BMI 22.8
--- NOTE | 2025-06-13 10:46 | ED.GENMED ---
History of Present Illness
<Aldo Gilbert PA-C - Last Filed: 06/13/25 12:06>
General
Chief Complaint: Breathing Problem
Source: patient
Exam Limitations: none
Time Seen by Provider: 06/13/25 10:45
History of Present Illness
History of Present Illness:
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 She presents complaining of shortness of breath worsening over the past week. She had a
thoracentesis performed 1 week ago which was her third thoracentesis. She denies fever. She denies chest pain. She is with her daughter who provides most of the history. She is on carvedilol 6.25 mg twice a day for her rate control. No prior
diagnosis of heart failure.
Phy Exam
<Aldo Gilbert PA-C - Last Filed: 06/13/25 12:06>
Physical Exam
Physical Exam:
General: Well-appearing female with slight increased work of breathing
HEENT normocephalic atraumatic
Heart: Tachycardic and irregular lungs: Diminished on the right
Extremities: No cyanosis skin is warm no rash
Scores
<Aldo Gilbert PA-C - Last Filed: 06/13/25 12:06>
Heart Failure Risk
Heart Failure Risk Score: Not Applicable
Course
<Aldo Gilbert PA-C - Last Filed: 06/13/25 12:06>
Orders/Labs/Results
Orders:
Orders
06/13/25 10:26
EKG [Electrocardiogram (*1)] Urgent
Reason for Study: Tachycardia
EKG- Treatment ONCE
06/13/25 11:00
CR Chest - 2 Views Urgent
Comment:
Reason For Exam: sob
06/13/25 11:06
Diltiazem HCl [Cardizem] 10 mg IV NOW STA
06/13/25 11:08
Complete Blood Count/With Diff Urgent
Comprehensive Metabolic Panel Urgent
NT-proBNP Urgent
TSH Reflex To Free T4 Urgent
Abnormal Lab Results
06/13/25
11:08
WBC 16.9 H 10^3/uL
(4.8-10.8)
MCHC 31.6 L g/dL
(33.0-37.0)
RDW 14.6 H %
(11.5-14.5)
MPV 10.8 H fL
(7.4-10.4)
Abs Immat Gran (auto) 0.1 H 10^3/uL
(0-0.05)
Absolute Neuts (auto) 14.8 H 10^3/uL
(1.4-6.5)
Absolute Lymphs (auto) 0.9 L 10^3/uL
(1.2-3.4)
Absolute Monos (auto) 0.9 H 10^3/uL
(0.1-0.6)
Neutrophils % 87.9 H %
(42.2-75.2)
Lymphocytes % 5.4 L %
(20.5-51.1)
Carbon Dioxide 32 H mmol/L
(22-30)
Glucose 103 H mg/dl
(70-99)
Total Protein 6.0 L g/dl
(6.3-8.2)
Albumin 3.2 L g/dl
(3.5-5.0)
06/13/25 11:08
06/13/25 11:08
Vital Signs
Initial and Last Documented VS:
Initial Vital Signs
Temp Pulse Resp BP Pulse Ox
97.4 F 93 20 119/74 93
06/13/25 10:22 06/13/25 10:22 06/13/25 10:22 06/13/25 10:22 06/13/25 10:22
Last Documented Vital Signs
Temp Pulse Resp BP Pulse Ox
97.4 F 98 30 111/86 88
06/13/25 10:22 06/13/25 11:45 06/13/25 11:45 06/13/25 11:10 06/13/25 11:45
<Armando Huffman MD - Last Filed: 06/13/25 11:17>
Orders/Labs/Results
Orders:
Orders
06/13/25 10:26
EKG [Electrocardiogram (*1)] Urgent
Reason for Study: Tachycardia
EKG- Treatment ONCE
06/13/25 11:00
CR Chest - 2 Views Urgent
Comment:
Reason For Exam: sob
06/13/25 11:06
Diltiazem HCl [Cardizem] 10 mg IV NOW STA
06/13/25 11:08
Complete Blood Count/With Diff Urgent
Comprehensive Metabolic Panel Urgent
NT-proBNP Urgent
TSH Reflex To Free T4 Urgent
Abnormal Lab Results
06/13/25
11:08
WBC 16.9 H 10^3/uL
(4.8-10.8)
MCHC 31.6 L g/dL
(33.0-37.0)
RDW 14.6 H %
(11.5-14.5)
MPV 10.8 H fL
(7.4-10.4)
Abs Immat Gran (auto) 0.1 H 10^3/uL
(0-0.05)
Absolute Neuts (auto) 14.8 H 10^3/uL
(1.4-6.5)
Absolute Lymphs (auto) 0.9 L 10^3/uL
(1.2-3.4)
Absolute Monos (auto) 0.9 H 10^3/uL
(0.1-0.6)
Neutrophils % 87.9 H %
(42.2-75.2)
Lymphocytes % 5.4 L %
(20.5-51.1)
Carbon Dioxide 32 H mmol/L
(22-30)
Glucose 103 H mg/dl
(70-99)
Total Protein 6.0 L g/dl
(6.3-8.2)
Albumin 3.2 L g/dl
(3.5-5.0)
06/13/25 11:08
06/13/25 11:08
Vital Signs
Initial and Last Documented VS:
Initial Vital Signs
Temp Pulse Resp BP Pulse Ox
97.4 F 93 20 119/74 93
06/13/25 10:22 06/13/25 10:22 06/13/25 10:22 06/13/25 10:22 06/13/25 10:22
Last Documented Vital Signs
Temp Pulse Resp BP Pulse Ox
97.4 F 98 30 111/86 88
06/13/25 10:22 06/13/25 11:45 06/13/25 11:45 06/13/25 11:10 06/13/25 11:45
<Aldo Gilbert PA-C - Last Filed: 06/13/25 12:06>
MDM/Problems Addressed
Differential Diagnosis Includes:
Patient presents with shortness of breath. She is anticoagulated secondary to history of A-fib. She also has known lymphoma and recurrent pleural effusion on the right. Breath sounds are diminished on the right and I suspect recurrent pleural
effusion again however it seems as though the patient is in rapid A-fib again. This may be contributing towards her shortness of breath as well
<Aldo Gilbert PA-C - Last Filed: 06/13/25 12:06>
*Pulse Oximetry
SaO2: 93
Oxygen Mode of Delivery: Room air
Patient hypoxic: no
*Critical Care Note
Total Time (30-74mins, 75-104mins- exclusive of procedures): Not Applicable
<Aldo Gilbert PA-C - Last Filed: 06/13/25 12:06>
Update Note
Update Note:
EKG personally reviewed which demonstrates atrial fibrillation with rapid response with a rate of 135 chest x-ray personally reviewed and demonstrates recurrent small to moderate pleural effusion on the right side. Patient's rate for her A-fib did
improved with a bolus of diltiazem IV. Still somewhat short of breath. Will admit to hospital for recurrent pleural effusion in the setting of rapid A-fib discussed with emergency room attending who saw the patient as well
ED Attending Note
<Aldo Gilbert PA-C - Last Filed: 06/13/25 12:06>
-
Portions of this chart may have been created with voice recognition software.� Occasional wrong word or��sound alike� substitutions may have occurred due to the inherent limitations of voice recognition software.
<Armando Huffman MD - Last Filed: 06/13/25 11:17>
ED Attending Note
Patient seen and examined by attending physician: Yes
ED Attending Note:
I have seen and evaluated the patient with a [id number] encounter. I have spoken to the advance practicer provider and involved in the medical history, the physical exam, medical decision making.
Evaluation and management service: agree unless noted differently below.
Results interpretation: agree unless noted differently below.
Focused HPI: 79-year-old female with a history of hypertension, hyperlipidemia, mild dementia, A-fib on Eliquis, lymphoma who presents to the ER with her daughter for evaluation of shortness of breath. It sounds like dyspnea has been a chronic
issue but progressed over the past few days. She has a history of recurrent effusion on the right side that has required multiple thoracenteses most recently was 1 week ago. She denies any chest pain. She denies any significant swelling in the
legs. She denies any cough or fever. She denies any palpitations. She was noted to be in A-fib on arrival this is a relatively new diagnosis; she is on Eliquis 2.5 mg twice daily and reportedly compliant.
Physical exam: Awake and alert not in distress. Tachycardic with irregular rhythm on the monitor; low normal pulse ox 92% on my assessment, mild tachypnea respiratory rate 27, no fever, normotensive. Breath sounds significantly diminished on the
right side lower and mid lung mike. No notable edema or JVD. Irregularly irregular rhythm on cardiac auscultation but no murmurs appreciated.
Medical Decision Makin-year-old female presents for evaluation of worsening dyspnea. Vitals and exam as above. EKG shows atrial fibrillation with RVR�this alone could account for some of her dyspnea however she also has significant diminished
breath sounds on the right side concerning for recurrent effusion. Will plan to rate control her A-fib with diltiazem. Send usual labs. Will check chest x-ray. Monitor very closely and reassess after the above.
Discharge Plan
Departure
Patient Disposition: Admit
Date of Disposition: 06/13/25
Time of Disposition: 12:06
Presentation/result/management discussed w/ accepting MD/DO: Hospitalist
Discharge Problem:
Pleural effusion, Atrial fibrillation, rapid
Prescriptions:
No Action
simvastatin [Zocor] 40 mg Tablet
40 mg PO HS
escitalopram oxalate [Lexapro] 10 mg Tablet
10 mg PO DAILY
memantine 5 mg Tablet
5 mg PO BID
carvedilol 6.25 mg Tablet
6.25 mg PO BID Qty: 60 0RF
Eliquis 2.5 mg Tablet
2.5 mg PO BID Qty: 60 0RF
(DME) CBC with differential
See Rx Instructions .Route .MEDSUPPLY Qty: 1 0RF
Rx Instructions:
within 1 week (05/23-05/30), result to PCP
# metastatic lung cancer
Referrals:
Leilani Mckoy MD [Family Provider, Internal Medicine]
Interventions
Interventions:
*Risk Screen - Suicide Last Done: 06/13/25 10:22
*General Assessment Last Done: 06/13/25 11:06
*Neglect/Abuse Screening Last Done: 06/13/25 10:22
*ED- Fall Risk Assessment Last Done: 06/13/25 11:06
*ED COVID-19 Vaccine History Last Done: 06/13/25 11:06
ED- Cardiac Assessment Last Done: 06/13/25 10:56
ED- Pulmonary Assessment Last Done: 06/13/25 10:56
Discharge Date and Time
Print Language: LATVIAN
[2025-06-13] MEDS: CARDIZEM 10 MG IV (11:10)
[2025-06-13 11:26] LABS: Hematocrit 44.9 % (37.0-47.0); Hemoglobin 14.2 g/dL (12.0-16.0); Mean Corp Hgb Conc. 31.6 g/dL (33.0-37.0); Mean Corpuscular Volume 96.1 fL (81.0-99.0); Nucleated Red Blood Cells % 0 %; Platelet Count 227 10^3/uL (130-400); Red Cell Dist. Width 14.6 % (11.5-14.5)
[2025-06-13 11:41] LABS: ALT (SGPT) 13 U/L (0-35); AST (SGOT) 20 U/L (14-36); Albumin 3.2 g/dl (3.5-5.0); Alkaline Phosphatase 108 U/L (38-126); Blood Urea Nitrogen 13 mg/dl (7-17); Calcium 8.8 mg/dl (8.4-10.2); Carbon Dioxide 32 mmol/L (22-30); Chloride 103 mmol/L (98-107); Estimated Creatinine Clearance 39 ml/min; Glucose 103 mg/dl (70-99); Potassium 3.8 mmol/L (3.5-5.1); Sodium 138 mmol/L (135-145); Total Protein 6.0 g/dl (6.3-8.2); eGFR > 60.00
--- NOTE | 2025-06-13 12:34 | HPS.HSE ---
Addendum entered and electronically signed by Kane West MD 06/13/25 13:43:
79-year-old female with a recent diagnosis of lymphoma and A-fib presented to the hospital with the daughter complaining of shortness of breath worse with exertion, workup showed recurrence of pleural effusion on the right side which she had a drain
on Monday. Diagnosed with a mild lymphoma most recent and not been treated yet
She is awake, alert and oriented accompanied by the daughter at the bedside.
Seen and examined and discussed with nurse practitioner in detail I am in agreement with plan and management mentioned by nurse practitioner.
Vital signs reviewed
Physical exam:
General: Awake, alert and oriented x3, not in distress and holds appropriate conversation.
HEENT: No active discharge, ecchymosis or bruising, moist lips, tongue and mucous membrane.
Eyes: No discharge or red conjunctiva, no nystagmus, pupils are reactive and equal
Neck:Supple, no JVD no bruit no goiter.
Respiratory: Normal AP contour and diameter, normal chest wall movement, normal respiratory effort, no respiratory distress,
Lungs: Good air entry bilaterally, no wheezing or rhonchi, no rales or crackles
Heart: S1, S2 regular, normal rate, no added sound.
Gastrointestinal: Positive bowel sounds, soft, nontender, no guarding or rigidity or organomegaly
Musculoskeletal: , no chest wall abnormality or tenderness. All joints and extremities have good range of motion, no muscle tenderness or any joint swelling or tenderness.
Extremities: No pitting edema, good peripheral pulses, good range of motion
Skin: Warm and dry, no ulceration, normal color.
Workup including labs, imaging, EKG and archive reviewed.
Assessment and plan:
Shortness of breath possible related to fluoroscopy effusion on the right and A-fib with RVR.
Heart rate is improving
IR consulted for thoracentesis.
If IR does not do drainage then we will consider IV diuresis and recheck the imaging and may consider cardiology consult
A-fib with RVR: Resolved with Cardizem
On Eliquis
Mild lymphoma: Recent diagnosis follows with oncology.
All discussed with the patient and the family
Discussed with nurse practitioner
The rest of the assessment and management as below
Original Note:
Family Physician
-
Family Physician: Leilani Mckoy
Chief Complaint
-
sob
History of Present Illness
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 patient stated
sob with exertion. denied chest pain, palpitation. denied fever, chills, cough, congestion. denied BUI,dizzy or syncope. denied abdominal pain,n,v,d. denied dysuria or hematuria. She had a thoracentesis performed last Monday.
upon arrival noted atrial fib with RVR and pleural effusion. admitting for further managment.
Medical History
Past Medical History
Past Medical History: Reports Other
Additional Past Medical History:
Lymphoma, hypercholesterolemia, depression
Past Surgical History: Reports None
Social History
Tobacco: Former Smoker
Alcohol: Occasional
Drug: None
Living: With Family
Family History
Family History: Not pertinent
Allergies / Home Medications
Allergies reflects when Allergies were last updated in [facility].
Home Medications with original date entered in [facility]
Allergy/Medication List:
Allergies
Allergy/AdvReac Type Severity Reaction Status Date / Time
Cephalosporins Allergy Hives Verified 06/13/25 10:21
Penicillins Allergy Hives Verified 06/13/25 10:21
Home Medications
escitalopram oxalate 10 mg tablet (Lexapro) 10 mg PO DAILY 05/12/25
memantine 5 mg tablet 5 mg PO BID 05/12/25
simvastatin 40 mg tablet (Zocor) 40 mg PO HS 05/12/25
CBC with differential #1 ea 05/21/25
apixaban 2.5 mg tablet (Eliquis) 2.5 mg PO BID #60 tabs 05/21/25
carvedilol 6.25 mg tablet 6.25 mg PO BID #60 tabs 05/21/25
Review of Systems
-
Constitutional: Reports No Symptoms
EENT: Reports No Symptoms
Respiratory: Reports Trouble Breathing
Cardiac: Reports No Symptoms
Abdomen/GI: Reports No Symptoms
: Reports No Symptoms
Musculoskeletal: Reports No Symptoms
Skin: Reports No Symptoms
Neurological: Reports No Symptoms
Endocrine: Reports No Symptoms
Hematologic/Lymphatic: Reports No Symptoms
Psych: Reports No Symptoms
Physical Exam
Vital Signs
Vital Signs
Temp Pulse Resp BP Pulse Ox
97.4 F 98 30 111/86 88
06/13/25 10:22 06/13/25 11:45 06/13/25 11:45 06/13/25 11:10 06/13/25 11:45
Physical Exam
General: Well Developed, Well Nourished and No Apparent Distress
HEENT: NormoCephalic, Moist mucous membranes and Atraumatic
Respiratory: Decreased Breath Sounds
Cardiac: S1/S2 and Regular Rhythm; No Murmur or Rub
GI: Soft, Non Tender, Non Distended and Normal Bowel Sounds; No Organomegaly
Rectal: Deferred by Provider
Musculoskeletal: No Clubbing, No Cyanosis and No Edema
Skin: Rash and Other (sacral wound)
Neuro: AO x 3 and Nonfocal/grossly intact
Psych: Calm
Laboratory Results
-
06/13/25 11:08
06/13/25 11:08
Laboratory Results
Total Bilirubin 0.6 mg/dl (0.2-1.3) 06/13/25 11:08
AST 20 U/L (14-36) 06/13/25 11:08
ALT 13 U/L (0-35) 06/13/25 11:08
Alkaline Phosphatase 108 U/L (38-126) 06/13/25 11:08
Data Reviewed
-
Diagnostic Radiology: Report Reviewed by me
Lab Data: Labs Reviewed by me
Impression/Plan
-
# Short of breath/acute hypoxia secondary to pleural effusion
#hxt of CHF
- Recent thoracentesis last week
- Chest x-ray with impression of Interval recurrence of small to moderate right pleural effusion.Several masses again appreciated within the left hemithorax consistent with neoplastic process.
-consult IR for thoracentesis
-continue supplemental oxygen to keep sat>95,wean as tolerated
# Rapid A-fib
- Heart rate improved with Cardizem
- EKG with A-fib with RVR
-eliquis and coreg continued
# Lymphoma
- WBC 16.9
-new diagnosis-family and patient not decided on any treatment yet
-follows Dr. Gerber
# Hypercholesterolemia
Continue simvastatin
# Anxiety/depression
# Dementia?
Continue Lexapro
#sacral wound
-wound care consulted.
#DVT prophylaxis
-eliquis
DNR DNI per pt and daughter
--- NOTE | 2025-06-13 15:00 | PTCARENOTE ---
Received pt from IR via stretcher. Stretcher placed next to bed, pt able to stand and pivot to bed x1. Daughter at bedside. AAOx2, unable to state month, knows it is football season. Forgetful. Bed alarm placed and plugged in. groundwater monitoring technician
placed and displaying A FIB with RVR, HR irregular, 110's to 140's. No complaints of lightheadedness or shortness of breathe. MD made aware, new order provided, see MAR. Assessed and oriented to room. Verbalized understanding of call shipley. Call shipley
within close reach. Will continue to monitor.
[2025-06-13] MEDS: LOPRESSOR 2.5 MG IV (15:43)
--- NOTE | 2025-06-13 16:46 | PTCARENOTE ---
HR continues to be elevated, 110's-120's. made aware, new orders provided, see MAR.
[2025-06-13 17:00] LABS: Body Fluid Second Tech FB
[2025-06-13] MEDS: NSS 250 IV (17:00)
[2025-06-13] MEDS: LOPRESSOR 25 MG PO (17:01)
[2025-06-13] MEDS: NSS 1000 IV (18:35)
[2025-06-13] MEDS: ELIQUIS 2.5 MG PO (21:29)
[2025-06-13] MEDS: LIPITOR 20 MG PO (21:30)
[2025-06-13] MEDS: NAMENDA 5 MG PO (21:30)
[2025-06-13] MEDS: COREG 6.25 MG PO (21:30)
[2025-06-13 21:47] LABS: LDH 247 U/L (120-246)
[2025-06-14] VITALS (8 sets, daily range): BP systolic 86–121; BP diastolic 46–76
[2025-06-14] MEDS: NAMENDA 5 MG PO ×2 (08:57→20:46)
[2025-06-14] MEDS: COREG 6.25 MG PO (08:57)
[2025-06-14] MEDS: LEXAPRO 10 MG PO (08:58)
[2025-06-14] MEDS: ELIQUIS 2.5 MG PO ×2 (08:58→20:47)
[2025-06-14] MEDS: NSS IV (09:47)
[2025-06-14 10:02] LABS: Hematocrit 36.6 % (37.0-47.0); Hemoglobin 11.5 g/dL (12.0-16.0); Mean Corp Hgb Conc. 31.4 g/dL (33.0-37.0); Mean Corpuscular Volume 96.1 fL (81.0-99.0); Platelet Count 163 10^3/uL (130-400); Red Cell Dist. Width 14.5 % (11.5-14.5)
--- NOTE | 2025-06-14 10:07 | PTCARENOTE ---
Pt HR increased 100's-110's. Irregular. MD made aware. MD at bedside. This RN attempted to wean pt off o2, saturation= 88%, 2L placed, saturation=92-94%
--- NOTE | 2025-06-14 11:15 | W.PN.HOSP.TC ---
Addendum entered and electronically signed by Edward Cook MD 06/14/25 17:51:
Patient with intermittent soft blood pressure and will reduce carvedilol dose back to home regiment 6.25 mg with hold parameters.
Original Note:
Today's Communication/Plan
-
Increase dose of carvedilol and monitor heart rate
Continue with Eliquis
Wean O2 as tolerated
Incentive spirometry ordered
Assessment / Plan
Assessment / Plan
General: Well Developed, Well Nourished and No Apparent Distress
HEENT: NormoCephalic, Moist mucous membranes and Atraumatic
Respiratory: rhonchi L>>R, oxygen NC
Cardiac: S1/S2 and Regular Rhythm; No Murmur or Rub
GI: Soft, Non Tender, Non Distended and Normal Bowel Sounds; No Organomegaly
Rectal: Deferred by Provider
Musculoskeletal: No Clubbing, No Cyanosis and No Edema
Skin: Rash and Other (sacral wound)
Neuro: AO x 3 and Nonfocal/grossly intact
Psych: Calm
# Acute hypoxic respiratory insufficiency likely secondary to recurrent left-sided pleural effusion likely in the setting of malignancy
- Chest x-ray with impression of Interval recurrence of small to moderate right pleural effusion.Several masses again appreciated within the left hemithorax consistent with neoplastic process.
- Status post thoracentesis with 1150 cc of clear yellow pleural fluid removed. Fluid culture preliminary negative for growth.
- Wean oxygen as tolerated. Incentive spirometer encouraged.
# Atrial fibrillation with rapid ventricular response
-Remains in rapid ventricular response on telemetry
- Increase dose of carvedilol to 12.5 mg
- Continue Eliquis
- If no improvement may need cardiology input as patient with reduced ejection fraction
# B-cell MALT lymphoma
-Lung biopsy results were noted.
-new diagnosis-family and patient not decided on any treatment yet
-follows Dr. Gerber. Family has not decided how to proceed with treatment moving forward.
#Chronic HFrEF
Not on diuretics
Strict I's and O's. Daily weights
# Hypercholesterolemia
Continue simvastatin
# Anxiety/depression
Continue Lexapro
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
Continue memantine
#sacral wound
-wound care consulted.
#DVT prophylaxis
-eliquis
DNR DNI
Discussed with patient daughter at bedside in details. Daughter states they have not decided how to proceed pretreatment in regards for cancer moving forward. Currently plan is to continue with current management.
Anticipated Discharge: > 48 hours
Subjective/Interval History
-
Date of Service: June 14, 2025
patient with dementia
daughter at bedside
Denies shortness of breath
Currently in atrial fibrillation with rapid ventricular response
Objective Data
-
Labs:
Laboratory Results
06/13/25 06/14/25 06/14/25
12:57 06:07 08:42
WBC Cancelled 11.9 H
Hgb Cancelled 11.5 L
Hct Cancelled Cancelled 36.6 L
Plt Count Cancelled 163 D
Vital Signs:
Vital Signs
Temp Pulse Resp BP Pulse Ox
97.8 F 91 18 104/57 94
06/14/25 07:52 06/14/25 08:57 06/14/25 07:52 06/14/25 08:57 06/14/25 10:07
I&O
06/13/25 06/14/25 06/15/25
06:59 06:59 06:59
Intake Total 1800 / 1800
Balance 1800 / 1800
Data Reviewed
-
Total Time Spent with Patient (in minutes): 55
--- NOTE | 2025-06-14 11:27 | PTCARENOTE ---
Blood pressure decreased, 86/47 hr 110. made aware, instructed this RN to hold coreg.
[2025-06-14] MEDS: NSS 1000 IV (11:28)
--- NOTE | 2025-06-14 14:07 | CM ---
Patient seen at bedside
IA completed-left message for Dtr Naomie
dx: pleural effusion
On oxygen currently, states does not have home oxygen
PMH: recent diagnosis of lymphoma and A-fib presented to the hospital with the daughter complaining of shortness of breath
She had a thoracentesis performed 1 week ago which was her third thoracentesis.
patient states she is staying with her daughter in [place] (she stated she resides in [place])
Stated that her daughter is moving into a 1 story home
PLOF: Independent
Denies DME
Denies VN/Rehab
PT to eval
PCP: Leilani Mckoy
Pharmacy: [facility]
PLAN: TBD, follow hospital progress, CM to follow for needs, Await PT eval
[2025-06-14] MEDS: COREG PO (20:46)
[2025-06-14] MEDS: LIPITOR 20 MG PO (20:47)
[2025-06-15] VITALS (9 sets, daily range): BP systolic 83–120; BP diastolic 49–67; PULSE 99–105; O2SAT 99; BMI 23.0
[2025-06-15 06:36] LABS: Hematocrit 38.8 % (37.0-47.0); Hemoglobin 11.7 g/dL (12.0-16.0); Mean Corp Hgb Conc. 30.2 g/dL (33.0-37.0); Mean Corpuscular Volume 98.5 fL (81.0-99.0); Platelet Count 176 10^3/uL (130-400); Red Cell Dist. Width 14.4 % (11.5-14.5)
[2025-06-15 06:57] LABS: Blood Urea Nitrogen 12 mg/dl (7-17); Calcium 8.0 mg/dl (8.4-10.2); Carbon Dioxide 34 mmol/L (22-30); Chloride 104 mmol/L (98-107); Estimated Creatinine Clearance 39 ml/min; Glucose 84 mg/dl (70-99); Potassium 3.8 mmol/L (3.5-5.1); Sodium 139 mmol/L (135-145); eGFR > 60.00
[2025-06-15] MEDS: ELIQUIS 2.5 MG PO ×2 (08:00→19:51)
[2025-06-15] MEDS: LEXAPRO 10 MG PO (08:01)
[2025-06-15] MEDS: NAMENDA 5 MG PO ×2 (08:01→19:51)
[2025-06-15] MEDS: COREG 6.25 MG PO ×2 (08:02→19:53)
--- NOTE | 2025-06-15 11:09 | W.PN.HOSP.TC ---
Today's Communication/Plan
-
Monitor heart rate with ambulation
Wean O2 as tolerated
Continue home meds
Assessment / Plan
Assessment / Plan
General: Well Developed, Well Nourished and No Apparent Distress
HEENT: NormoCephalic, Moist mucous membranes and Atraumatic
Respiratory: rhonchi improved L>r, oxygen NC
Cardiac: S1/S2 and irregularly irregular no Murmur or Rub
GI: Soft, Non Tender, Non Distended and Normal Bowel Sounds; No Organomegaly
Rectal: Deferred by Provider
Musculoskeletal: No Clubbing, No Cyanosis and No Edema
Neuro: Awake, apparent dementia
Psych: Calm
# Acute hypoxic respiratory insufficiency likely secondary to recurrent left-sided pleural effusion likely in the setting of malignancy
- Chest x-ray with impression of Interval recurrence of small to moderate right pleural effusion.Several masses again appreciated within the left hemithorax consistent with neoplastic process.
- Status post thoracentesis with 1150 cc of clear yellow pleural fluid removed. Fluid culture preliminary remains negative for growth.
- Wean oxygen as tolerated. Incentive spirometer encouraged.
# Atrial fibrillation with rapid ventricular response
- Heart rate improved compared to yesterday. Remains between 100-110s at rest. Monitor heart rate with ambulation and once out of bed.
- Unable to tolerate increased dose of carvedilol
- Continue Eliquis
- If no improvement may need cardiology input as patient with reduced ejection fraction
# B-cell MALT lymphoma
-Lung biopsy results were noted.
-new diagnosis-family and patient not decided on any treatment yet
-follows Dr. Gerber. Family has not decided how to proceed with treatment moving forward.
#Chronic HFrEF
Not on diuretics
Strict I's and O's. Daily weights
# Hypercholesterolemia
Continue simvastatin
# Anxiety/depression
Continue Lexapro
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
Continue memantine
#sacral wound
-wound care consulted.
#DVT prophylaxis
-eliquis
DNR DNI
PT eval
Discussed with patient daughter at bedside in details on 06/14 and 06/15.
Anticipated Discharge: Within 24 hours
Subjective/Interval History
-
Date of Service: June 15, 2025
Remains on oxygen
Remains in atrial fibrillation
Objective Data
-
Labs:
Laboratory Results
06/15/25
05:53
WBC 14.5 H
Hgb 11.7 L
Hct 38.8
Plt Count 176
Sodium 139
Potassium 3.8
Chloride 104
Carbon Dioxide 34 H
BUN 12
Creatinine 0.7
Glucose 84
Calcium 8.0 L
Vital Signs:
Vital Signs
Temp Pulse Resp BP Pulse Ox
97.9 F 106 20 108/64 97
06/15/25 08:07 06/15/25 08:07 06/15/25 08:07 06/15/25 08:07 06/15/25 08:07
I&O
06/14/25 06/15/25 06/16/25
06:59 06:59 06:59
Intake Total 1800 / 1800 1720 / 1720
Balance 1800 / 1800 1720 / 1720
[2025-06-15 11:52] LABS: Magnesium 2.0 mg/dl (1.6-2.3)
--- NOTE | 2025-06-15 19:31 | PTCARENOTE ---
TT house provider about HR sustaining in the 130's with AFIB, asymptomatic. Pt had soft BP's throughout the day, BP was 120/62. Pt not able to tolerate high doses of Coreg due to soft BP's. Stat order for IV Lopressor. See NOV.
[2025-06-15] MEDS: LOPRESSOR 2.5 MG IV (19:54)
[2025-06-15] MEDS: LIPITOR 20 MG PO (21:22)
[2025-06-16] VITALS (7 sets, daily range): BP systolic 80–126; BP diastolic 45–75; BMI 23.0
[2025-06-16 07:20] LABS: Hematocrit 36.0 % (37.0-47.0); Hemoglobin 11.5 g/dL (12.0-16.0); Mean Corp Hgb Conc. 31.9 g/dL (33.0-37.0); Mean Corpuscular Volume 94.7 fL (81.0-99.0); Platelet Count 156 10^3/uL (130-400); Red Cell Dist. Width 14.4 % (11.5-14.5)
[2025-06-16 07:56] LABS: Blood Urea Nitrogen 10 mg/dl (7-17); Calcium 8.1 mg/dl (8.4-10.2); Carbon Dioxide 35 mmol/L (22-30); Chloride 101 mmol/L (98-107); Estimated Creatinine Clearance 46 ml/min; Glucose 80 mg/dl (70-99); Potassium 3.2 mmol/L (3.5-5.1); Sodium 137 mmol/L (135-145); eGFR > 60.00
[2025-06-16] MEDS: NAMENDA 5 MG PO ×2 (08:10→20:32)
[2025-06-16] MEDS: LEXAPRO 10 MG PO (08:10)
[2025-06-16] MEDS: ELIQUIS 2.5 MG PO ×2 (08:10→20:31)
[2025-06-16] MEDS: COREG 6.25 MG PO ×2 (08:10→20:31)
[2025-06-16] MEDS: KLOR-CON 20 MEQ PO (09:10)
--- NOTE | 2025-06-16 09:12 | CON.PUL ---
Consultation
Consultation Request
Date/Time Consultation Requested: 06/16/25
Date/Time Consultation Performed: 06/16/25
Performing Provider: Lizette
Reason for Consultation: Pleural effusion
Medical History
-
History of Present Illness:
Patient is an 79-year-old female with previous history of depression, dementia, hypercholesterolemia, with recent diagnosis of MALT lymphoma presenting with worsening shortness of breath with exertion and recurrent pleural effusion. This was worked
up recently with numerous thoracentesis and eventual lung biopsy demonstrating MALT lymphoma. She was discharged on 05/21/2025. She was also noted to be in A-fib with RVR. She is readmitted 06/13/25. She has had repeat thoracentesis on 06/13/2025
for 1200 cc of fluid and 06/06/2025 for 1150 cc.
Allergies / Home Medications
Allergies
Allergy/AdvReac Type Severity Reaction Status Date / Time
Cephalosporins Allergy Hives Verified 06/13/25 10:21
Penicillins Allergy Hives Verified 06/13/25 10:21
Home Medications
�Medication �Instructions �Recorded �Confirmed �Last Taken �Type
escitalopram oxalate 10 mg tablet 10 mg PO DAILY Depression 05/12/25 06/13/25 06/12/25 History
(Lexapro)
memantine 5 mg tablet 5 mg PO BID Neurological Condition 05/12/25 06/13/25 06/12/25 History
simvastatin 40 mg tablet (Zocor) 40 mg PO HS High Cholesterol 05/12/25 06/13/25 06/12/25 History
apixaban 2.5 mg tablet (Eliquis) 2.5 mg PO BID #60 tabs 05/21/25 06/13/25 06/12/25 Rx
carvedilol 6.25 mg tablet 6.25 mg PO BID #60 tabs 05/21/25 06/13/25 06/12/25 Rx
diphenhydramine HCl 50 mg capsule 50 mg PO HS Sleep 06/13/25 06/13/25 06/12/25 History
([employer] Sleep[employer]els)
Review of Systems
Vitals / Labs / Diagnostic Testing
Vital Signs
Temp Pulse Resp BP Pulse Ox
98.4 F 105 18 126/75 97
06/16/25 08:07 06/16/25 08:07 06/16/25 08:07 06/16/25 08:07 06/16/25 08:07
Lab Data
06/16/25 06:47
06/16/25 06:47
Microbiology
06/13/25 14:28 Pleural Fluid Acid Fast Bacilli Smear - Preliminary
06/13/25 14:28 Pleural Fluid Acid Fast Bacilli Culture - Preliminary
06/13/25 14:24 Pleural Fluid Body Fluid Culture - Preliminary
No Growth After 48 Hours
06/13/25 14:24 Pleural Fluid Gram Stain - Preliminary
06/13/25 14:27 Pleural Fluid Fungal Culture - Preliminary
Culture in progress.
Positive cultures are reported as soon as detected.
Final report to follow in four to five weeks.
Diagnostic Testing:
Assessment
-
Patient is an 79-year-old female with previous history of depression, dementia, hypercholesterolemia, with recent diagnosis of MALT lymphoma presenting with worsening shortness of breath with exertion and recurrent pleural effusion. This was worked
up recently with numerous thoracentesis and eventual lung biopsy demonstrating MALT lymphoma. She was discharged on 05/21/2025. She was also noted to be in A-fib with RVR. She is readmitted 06/13/25. She has had repeat thoracentesis on 06/13/2025
for 1200 cc of fluid and 06/06/2025 for 1150 cc.
Recurrent pleural effusion, presumed malignant/cyto negative
Acute on chronic SOB
Afib with RVR
SOB
Leukocytosis
Hypokalemia
Metabolic alkalosis
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
A-fib on Eliquis
MALT Lymphoma, follows with oncology
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
Malignant effusions s/p thoracentesis x 2 06/13/25, 06/06/25--negative cyto x 2
HLD
ACC/AHA stage C chronic systolic heart failure
Anxiety/depression
Sacral wound
Alzheimer's disease
Former smoker, half a pack a day for 15 years, quit over 30 years ago
Plan
Currently stable on RA, offers no new complaints
Prior history of lung disease is NOT noted -- She is a former smoker, half a pack a day for 15 years, quit over 30 years ago.
She has never been diagnosed previously with lung conditions, never seen pulmonary in the past.
She denies family history of lung cancer.
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
Respiratory status improved after repeat thoracentesis, x 2 needed in past 2 weeks since prior discharge
Thoracentesis 05/13/2025 noted
Repeat thoracentesis 05/19/2025-reportedly -1 L,-exudate, microbiology and pathology pending
Cyto previously negative
Chem: pH 7.5 - wbc 1045 - glu 109 - tp 3.4 - ldh 152 - tg <30 -- exudate
Oncology following-correspondence reviewed
Lung biopsy + MALT
Dr. Love reviewed potential need for PleurX catheter with patient as well as daughter with recurrent fairly rapid reaccumulation of pleural fluid on 05/19/25
I have reviewed this again wtih patient is recurrence is noted again after 2 recent taps
Repeat CXR today
She has metabolic alkalosis on her chemistry
We will obtain baseline VBG
New onset A-fib noted on EKG
She is on PO eliquis
Cards consult obtained
Prior ECHO-reduced EF 29%, LV wall motion is diffusely hypokinetic
She has mild to moderate valvular heart disease
Further management per team
Smoking history noted--denies family history of lung cancer
She had been obtaining her routine mammograms and colonoscopies, her daughter is not sure when she stopped doing those
80 pound weight loss is noted on prior admission, nutrition consult.
We will follow
Diagnostic Data
Chest X-Ray: 06/13/25- Status post right thoracentesis. No evidence for pneumothorax.
06/13/25- Interval recurrence of small to moderate right pleural effusion. Several masses again appreciated within the left hemithorax consistent with neoplastic process.
CT Scan: CHEST 05/12/25- No CTA evidence for an acute pulmonary thromboembolism. Solid pulmonary masses throughout both lungs highly suspicious for malignancy/metastatic disease. The largest mass measures 5.8 cm in the left upper lobe. Moderate right
pleural effusion, presumably malignant.
Echo: 05/13/25- 1. Left ventricular ejection fraction is severely reduced with an ejection fraction of 29 % by Owusu's biplane method of discs.
2. Indexed left atrial volume is severely abnormal (>48 ml/m2).
3. Left ventricular wall motion is diffusely hypokinetic.
4. Mild left ventricular hypertrophy.
5. Mildly dilated right atrium.
6. Moderate mitral annular calcification. mild to moderate mitral valve regurgitation.
7. Moderate tricuspid regurgitation.
8. Pleural effusion is noted.
9. Tricuspid valve opens normally. moderate tricuspid regurgitation. Estimated pulmonary artery pressure of 39 mmHg assuming a right atrial pressure of 3 mmHg.
Reports and relevant images were personally reviewed.
Total time spent on this consultation/encounter __76__ minutes which includes review of history, physical exam, medications, laboratory data, personal review of imaging, extensive review of outpatient records, discussion with care team and
respiratory therapy.
--- NOTE | 2025-06-16 09:15 | W.PN.HOSP.TC ---
Addendum entered and electronically signed by Luz Nuñez MD 06/16/25 17:44:
Addendum
- Deep dermal stage 2 sacral pressure injury, POA.
d/w wound care nurse, orders are placed
End
Addendum entered and electronically signed by Luz Nuñez MD 06/16/25 12:23:
Addendum
# Severe pruritis
mostly in arms, c/w lymphoma. Best Tx is to treat Lymphoma itself but we can use symptomatic measures as antihistamine/corticosteroid. Will change to more potent corticosteroid with clobetasol ointment.
Can add low dose Benadryl although she is with delirium risk due to age and dementia but e might have to use Benadryl at night- time
End
Original Note:
Today's Communication/Plan
-
f/w cardiology recommendations for A fib
consult pulmonary for malignant effusion recommendation
Assessment / Plan
Assessment / Plan
Physical exam:
General: Well Developed, Well Nourished and No Apparent Distress
HEENT: Normocephalic, Moist mucous membranes and Atraumatic
Respiratory: rhonchi improved L>r, oxygen NC
Cardiac: S1/S2 and irregularly irregular no Murmur or Rub
GI: Soft, Non Tender, Non Distended and Normal Bowel Sounds; No Organomegaly
Musculoskeletal: No Clubbing, No Cyanosis and No Edema
Neuro: Awake, apparent dementia
Psych: Calm
# Acute hypoxic respiratory failure with distress / using accessory muscles and needing O2
malignant pleural effusion, right side.
- Chest x-ray with impression of Interval recurrence of small to moderate right pleural effusion.Several masses again appreciated within the left hemithorax consistent with neoplastic process.
- Status post thoracentesis with 1150 cc of clear yellow pleural fluid removed. Fluid culture preliminary remains negative for growth.
- Wean oxygen as tolerated. Incentive spirometer encouraged.
Consult pulmonary, might need pleurx.
# Atrial fibrillation with rapid ventricular response
Uncontrolled with borderline low SBP
On Coreg , home dose
Will add Low dose IV BB PRN
Avoiding CCB due to low EF,
Can try Digoxin although hard to manage in older pts
Will ask cardiology, might change to Toprol ?
# B-cell MALT lymphoma
-Lung biopsy results were noted.
-new diagnosis-family and patient not decided on any treatment yet
-follows Dr. Gerber. Family has not decided how to proceed with treatment moving forward.
#Chronic HFrEF
Echo 05/26: Left ventricular ejection fraction is severely reduced with an ejection fraction of 29 % with mild to moderate MR, moderate TR and mildly increased pulmonary pressures estimated 39 mmHg
Appears euvolemic
Goal-directed medical therapy limited by hypotension
Strict I's and O's. Daily weights
# Hypokalemia
# Hypercholesterolemia
Continue simvastatin
# Anxiety/depression
Continue Lexapro
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
Continue memantine
#sacral wound
-wound care consulted.
#DVT prophylaxis
-Eliquis
DNR DNI
PT eval
Total time spent to see the patient, examine the patient, review data and lab results, discuss treatment plan with patient, nursing staff around 55 minutes
Anticipated Discharge: > 48 hours
Subjective/Interval History
-
Date of Service: June 16, 2025
No chest pain
No sob
Objective Data
-
Labs:
Laboratory Results
06/16/25
06:47
WBC 16.2 H
Hgb 11.5 L
Hct 36.0 L
Plt Count 156
Sodium 137
Potassium 3.2 L
Chloride 101
Carbon Dioxide 35 H
BUN 10
Creatinine 0.6
Glucose 80
Calcium 8.1 L
Vital Signs:
Vital Signs
Temp Pulse Resp BP Pulse Ox
98.4 F 105 18 126/75 97
06/16/25 08:07 06/16/25 08:07 06/16/25 08:07 06/16/25 08:07 06/16/25 08:07
I&O
06/15/25 06/16/25 06/17/25
06:59 06:59 06:59
Intake Total 1720 / 1720 240 / 240
Balance 1720 / 1720 240 / 240
--- NOTE | 2025-06-16 10:00 | WOUNDNOTE ---
[facility] RN note: Patient admitted with pleural effusions. Patient lives at home. Daughter present.
See H&P for complete history.
PMH: recent lymphoma diagnosis, a fib, thoracentesis last week.
Wound Location and type/assessment: Patient admitted with: deep dermal stage 2 sacral pressure injury. R arm small scabbed abrasion. L wrist and L elbow small abrasion. Blanchable red heels.
Appetite: fair to good as per patient.
Pressure redistribution devices in place: [employer] Accumax. Patient turns self in bed. She spends a lot on time in her recliner chair at home. Daughter stated she has a gel cushion for chair at home. She ambulates at home.
Plan: Sacral foam dressing changed (sacral shaped silicone border foam used). Patient and daughter instructed pressure injury prevention measures. Heels off bed with pillow. Patient turned using air chair cushion. Instructed patient to take home
when discharged.
Will confirm orders with Dr. Nuñez. Discussed with MESFIN Taveras.
Care plan to be updated and will follow as needed.
Note to case management requested for discharge: VN if goes home. Instructed patient to ask CM re: VN and instructed patient to follow up at [facility].
Recommend follow up at wound care center upon discharge.
--- NOTE | 2025-06-16 12:37 | CM ---
Patient seen at bedside with daughter Naomie
Discussed PT rec SNF - medicare.gov list given to daughter who will review & get back to CM regarding referrals to be placed
will need insurance auth once bed secured
PLAN: SNF when stable, CM to follow up with daughter for referrals to be placed
[2025-06-16] MEDS: CLOBETASOL PROPIONATE 0.05% CREAM 1 APPLIC TOPICAL ×2 (12:45→20:50)
--- NOTE | 2025-06-16 13:53 | CON.CAR ---
Addendum entered and electronically signed by Lisa Manzanares DO 06/16/25 17:22:
I saw and examined the patient.
The Skid Road Worker's note was reviewed and I agree with the note.
Comment: Patient was seen and examined. Patient came to the ER on Monday with increased SOB and was admitted with recurrent right pleural effusion and cardiology is now consulted for A-fib with RVR. Patient was just admitted from 05/12/2025 until
05/21/2025 with a new diagnosis of MALT lymphoma and A-fib and followed up with oncology as an outpatient and is apparently working to figure out what she would like to do in terms of treatment. In the meantime patient has had recurrent right-sided
pleural effusion requiring thoracentesis and came to the ER with more SOB on 06/13/2025. We are consulted today because of A-fib with RVR. A-fib was a new diagnosis during her admission in May and plan at that point was for rate control and
anticoagulation. Patient denies any palpitations or chest pain. Reports shortness of breath and cough have improved
GEN: NAD. AAOx3
HEENT: mmm
LUNGS: 2 L NC. Decreased BS right worse than left, no wheeze
CV: Afib on tele. Irreg, S1/S2, no murmur
ABD: soft, BS+, NT, ND
EXT: Bilateral hyperpigmentation and excoriations of arms with frequent itching during exam and some skin abrasion/cuts. Trace lower extremity edema.
Plan:
Known persistent atrial fibrillation first diagnosed in May with rapid rates in the setting of recurrent malignant pleural effusion/recently diagnosed B-cell MALT lymphoma
-Rates are better controlled and will likely need to tolerate low 100s. Fortunately, patient is asymptomatic
- Rate control may be limited by lower blood pressures and would like to avoid hypotension.
-For now continue carvedilol at 6.25 mg twice daily. If rates become challenging could consider use of amiodarone
-Continue anticoagulation with Eliquis with close monitoring of hemoglobin
Cardiomyopathy with ejection fraction 30% by echo 05/13/2025
-Conservative management given malignancy
-Clinically does not examine to be in florid heart failure
-Medical therapy limited by hypotension
-Monitor closely but would not add diuretics at this time.
-Management of recurrent malignant pleural effusion to be deferred to pulmonary and oncology
B-cell MALT lymphoma with recurrent pleural effusions
-Pulmonary consulted�possible PleurX catheter management of pleural effusions
-Patient apparently has seen Dr. Gerber as an outpatient and deciding on whether or not to pursue therapy
DNR status noted
Will sign off, recall if needed. If heart rates persistently are greater than 120 bpm please notify our service and we can consider adding amiodarone.
Original Note:
Consultation
Consultation Request
Date/Time Consultation Requested: 06/16/2025
Date/Time Consultation Performed: 06/16/2025
Requesting Provider: Dr. Nuñez
Performing Provider: Dr. Manzanares
Reason for Consultation: A-fib with RVR
Medical History
-
History of Present Illness:
Patient came to the ER on Monday with increased SOB and was admitted with recurrent right pleural effusion and cardiology is now consulted for A-fib with RVR. Patient was just admitted from 05/12/2025 until 05/21/2025 with a new diagnosis of MALT
lymphoma and A-fib and followed up with oncology as an outpatient and is apparently working to figure out what she would like to do in terms of treatment. In the meantime patient has had recurrent right-sided pleural effusion requiring
thoracentesis and came to the ER with more SOB on 06/13/2025. We are consulted today because of A-fib with RVR. A-fib was a new diagnosis during her admission in May and plan at that point was for rate control and anticoagulation and if patient
had no additional testing or surgery planned we could eventually make an attempt at rhythm control with CV once she had tolerated 4 weeks of OAC. Patient denies any palpitations or chest pain. BP was on the lower side, but she denies any
lightheadedness.
PMH:
Recurrent right-sided pleural effusion
s/p right thoracentesis for 1050 ml, exudative by lights criteria 05/13/25
Repeat right thoracentesis 1050 cc serosanguineous pleural fluid 05/19/2025
Persistent A-fib
Chronic Eliquis OAC
Cardiomyopathy, EF 30% by echo 05/13/2025
MALT lymphoma
HLD
Anxiety/depression
Former smoker
Dementia
DNR code status
Past Medical History
Past Medical History: Other (in HPI)
Past Surgical History: Cholecystectomy and Orthopedic
Social History
Tobacco: Former Smoker
Alcohol: Occasional
Personal:
Living: With Family
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
Family History
Family History: Cancer
Allergies / Home Medications
Allergy/AdvReac Type Severity Reaction Status Date / Time
Cephalosporins Allergy Hives Verified 06/13/25 10:21
Penicillins Allergy Hives Verified 06/13/25 10:21
�Medication �Instructions �Recorded �Confirmed �Type
escitalopram oxalate 10 mg tablet 10 mg PO DAILY Depression 05/12/25 06/13/25 History
(Lexapro)
memantine 5 mg tablet 5 mg PO BID Neurological Condition 05/12/25 06/13/25 History
simvastatin 40 mg tablet (Zocor) 40 mg PO HS High Cholesterol 05/12/25 06/13/25 History
apixaban 2.5 mg tablet (Eliquis) 2.5 mg PO BID #60 tabs 05/21/25 06/13/25 Rx
carvedilol 6.25 mg tablet 6.25 mg PO BID #60 tabs 05/21/25 06/13/25 Rx
diphenhydramine HCl 50 mg capsule 50 mg PO HS Sleep 06/13/25 06/13/25 History
([employer])
Review of Systems
-
History Source: Patient
All other systems: Negative unless noted
Physical Exam
Vital Signs
Temp Pulse Resp BP Pulse Ox
97.8 F 92 16 108/60 96
06/16/25 11:11 06/16/25 11:11 06/16/25 11:11 06/16/25 12:09 06/16/25 11:11
GEN: NAD. AAOx3
HEENT: EOMI, MMM
LUNGS: 2 L NC. Decreased BS right worse than left, no wheeze
CV: Afib on tele. Irreg, S1/S2, no murmur
ABD: soft, BS+, NT, ND
EXT: Trace B/L LE edema
NEURO: Gross non-focal
SKIN: Warm, pink, dry. No rash
Lab Results
06/16/25 06:47
06/16/25 06:47
Oty-M-Vtxoglfetyq Pept 09235 pg/ml 06/13/25 11:08
Impression / Plan
-
Primary Hydraulic Lift Operator: none prior to admission, seen initially by Dr. Sandoval
Onc: Dr. Gerber
Impression:
Admitted with acute hypoxic respiratory failure and pleural effusion 06/13/2025
Recurrent right-sided pleural effusion
s/p right thoracentesis for 1050 ml, exudative by lights criteria 05/13/25
Repeat right thoracentesis 1050 cc serosanguineous pleural fluid 05/19/2025
s/p right sided thora for 1.2 L 06/13/25
A-fib with RVR
Persistent A-fib
Chronic Eliquis OAC
Cardiomyopathy, EF 30% by echo 05/13/2025
MALT lymphoma
HLD
Anxiety/depression
Former smoker
Dementia
DNR code status
ECHO 05/13/2025: EF 30%, diffuse hypokinesis of LV, mild LVH, moderate MAC, mild to moderate MR, moderate TR, PAP 39 mmHg, pleural effusion noted
Plan:
-Patient came to the ER on Monday with increased SOB and was admitted with recurrent right pleural effusion and cardiology is now consulted for A-fib with RVR. Patient was just admitted from 05/12/2025 until 05/21/2025 with a new diagnosis of MALT
lymphoma and A-fib and followed up with oncology as an outpatient and is apparently working to figure out what she would like to do in terms of treatment. In the meantime patient has had recurrent right-sided pleural effusion requiring
thoracentesis and came to the ER with more SOB on 06/13/2025. We are consulted today because of A-fib with RVR. A-fib was a new diagnosis during her admission in May and plan at that point was for rate control and anticoagulation and if patient
had no additional testing or surgery planned we could eventually make an attempt at rhythm control with CV once she had tolerated 4 weeks of OAC. Patient denies any palpitations or chest pain. BP was on the lower side, but she denies any
lightheadedness.
-ECG reviewed by me on admission showed A-fib with RVR, QTc 477 ms. Telemetry reviewed by me shows A-fib with heart rate of 92
-Patient with known persistent A-fib and plan has been rate control as she is relatively asymptomatic. Patient readmitted with recurrent right pleural effusion and HR has been faster in this setting.
-There was an attempted increasing Coreg to 12.5 mg BID, but patient had hypotension and so reduced back to outpatient dose of 6.25 mg BID. Telemetry from earlier in the day reviewed by me and patient was more rapid at that time, but appears
improved on my review at about 1500 today
-If patient has recurrent rapid rates we could consider using amiodarone for adjunct rate control
-Patient has been taking Eliquis 2.5 mg BID since 05/21/2025
-With regards to recurrent right-sided pleural effusion, the patient had 1.2 L removed on 06/13/2025. Fluid was exudative by lights criteria on 05/13/2025 and patient is undergoing outpatient evaluation for MALT lymphoma and has not yet decided what
treatment she would like to pursue.
-EF reduced to 30% by an echo on 05/13/2025 and this could be tachycardia mediated. The proBNP is lower this time than it was in May. Patient does not take a daily diuretic
[2025-06-16] MEDS: LOPRESSOR 2.5 MG IV (21:31)
[2025-06-16] MEDS: LIPITOR 20 MG PO (21:31)
--- NOTE | 2025-06-17 03:18 | PTCARENOTE ---
PCT informed this RN that BP was running on the soft side. Manual BP was taken, 92/58. TT house provider. Pt did receive lopressor and coreg last night. House provider informed this RN to continue to monitor BP.
[2025-06-17 06:00] VITALS: BMI 23.0
[2025-06-17 07:45] VITALS: BP 96/50
[2025-06-17] MEDS: NAMENDA 5 MG PO ×2 (07:59→19:48)
[2025-06-17] MEDS: TYLENOL 650 MG PO (07:59)
[2025-06-17] MEDS: LEXAPRO 10 MG PO (07:59)
[2025-06-17] MEDS: ELIQUIS 2.5 MG PO ×2 (07:59→19:48)
[2025-06-17] MEDS: CLOBETASOL PROPIONATE 0.05% CREAM 1 APPLIC TOPICAL ×2 (08:03→19:56)
[2025-06-17] MEDS: COREG 6.25 MG PO ×2 (08:03→19:49)
[2025-06-17 08:45] LABS: Venous Blood Gas B.E. 10.3 mmol/L (-4 to +4); Venous Blood Gas O2 Sat % 98.9 %
--- NOTE | 2025-06-17 09:11 | W.PN.HOSP.TC ---
Today's Communication/Plan
-
dc planning
Assessment / Plan
Assessment / Plan
Physical exam:
General: Well Developed, Well Nourished and No Apparent Distress
HEENT: Normocephalic, Moist mucous membranes and Atraumatic
Respiratory: rhonchi improved L>r, oxygen NC
Cardiac: S1/S2 and irregularly irregular no Murmur or Rub
GI: Soft, Non Tender, Non Distended and Normal Bowel Sounds; No Organomegaly
Musculoskeletal: No Clubbing, No Cyanosis and No Edema
Neuro: Awake, apparent dementia
Psych: Calm
# Acute hypoxic respiratory failure with distress / using accessory muscles and needing O2
malignant pleural effusion, right side.
- Chest x-ray with impression of Interval recurrence of small to moderate right pleural effusion.Several masses again appreciated within the left hemithorax consistent with neoplastic process.
- Status post thoracentesis with 1150 cc of clear yellow pleural fluid removed. Fluid culture preliminary remains negative for growth.
- Wean oxygen as tolerated. Incentive spirometer encouraged.
d/w daughter, pt, agreed to Pleurx
Might need more time for fluid to build up before placing catheter
# Atrial fibrillation with rapid ventricular response
Sometimes Uncontrolled with borderline low SBP
On Coreg , home dose
c/w Low dose IV BB PRN
Avoiding CCB due to low EF,
Can try Digoxin although hard to manage in older pts
seen by cardiology, ok with current heart rate, c/w BB
# B-cell MALT lymphoma
-Lung biopsy results were noted.
d/w Dr. Gerber. Family agreed to try Immunotherapy, will f/u in office.
#Chronic HFrEF
Echo 05/26: Left ventricular ejection fraction is severely reduced with an ejection fraction of 29 % with mild to moderate MR, moderate TR and mildly increased pulmonary pressures estimated 39 mmHg
Appears euvolemic
Goal-directed medical therapy limited by hypotension
# Hypokalemia
# Hypercholesterolemia
Continue simvastatin
# Anxiety/depression
Continue Lexapro
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
Continue memantine
# Deep dermal stage 2 sacral pressure injury, POA.
d/w wound care nurse, orders are placed
#DVT prophylaxis
-Eliquis
DNR DNI
PT eval
Total time spent to see the patient, examine the patient, review data and lab results, discuss treatment plan with patient, nursing staff around 55 minutes
Anticipated Discharge: Within 24 hours
Subjective/Interval History
-
Date of Service: June 17, 2025
No complaints
Objective Data
-
Vital Signs:
Vital Signs
Temp Pulse Resp BP Pulse Ox
98.6 F 108 18 96/50 97
06/17/25 07:45 06/17/25 07:45 06/17/25 07:45 06/17/25 07:45 06/17/25 07:45
I&O
06/16/25 06/17/25 06/18/25
06:59 06:59 06:59
Intake Total 240 / 240 760 / 760
Balance 240 / 240 760 / 760
--- NOTE | 2025-06-17 10:19 | W.PN.PUL3 ---
Today's Communication / Plan
-
VBG showing chronic CO2 retention, it is likely she would not agree to PAP
CXR not showing re-accumulation yet, but ASEPT planning can be arranged also as OP
She would need to FU in our office to arrange, this will be placed in her discharge summary
Discharge planning noted per team
Assessment
-
Patient is an 79-year-old female with previous history of depression, dementia, hypercholesterolemia, with recent diagnosis of MALT lymphoma presenting with worsening shortness of breath with exertion and recurrent pleural effusion. This was worked
up recently with numerous thoracentesis and eventual lung biopsy demonstrating MALT lymphoma. She was discharged on 05/21/2025. She was also noted to be in A-fib with RVR. She is readmitted 06/13/25. She has had repeat thoracentesis on 06/13/2025
for 1200 cc of fluid and 06/06/2025 for 1150 cc.
Recurrent pleural effusion, presumed malignant/cyto negative
Acute on chronic SOB
Afib with RVR
SOB
Leukocytosis
Hypokalemia
Metabolic alkalosis
Chronic hypercarbic respiratory failure
Conditions present [employer] P[employer]
A-fib on Eliquis
MALT Lymphoma, follows with oncology
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
Malignant effusions s/p thoracentesis x 2 06/13/25, 06/06/25--negative cyto x 2
HLD
ACC/AHA stage C chronic systolic heart failure
Anxiety/depression
Sacral wound
Alzheimer's disease
Former smoker, half a pack a day for 15 years, quit over 30 years ago
Plan
Currently stable on RA, offers no new complaints
Prior history of lung disease is NOT noted -- She is a former smoker, half a pack a day for 15 years, quit over 30 years ago.
She has never been diagnosed previously with lung conditions, never seen pulmonary in the past.
She denies family history of lung cancer.
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
Respiratory status improved after repeat thoracentesis, x 2 needed in past 2 weeks since prior discharge
Thoracentesis 05/13/2025 noted
Repeat thoracentesis 05/19/2025-reportedly -1 L,-exudate, microbiology and pathology pending
Cyto previously negative
Chem: pH 7.5 - wbc 1045 - glu 109 - tp 3.4 - ldh 152 - tg <30 -- exudate
Oncology following-correspondence reviewed
Lung biopsy + MALT
Dr. Love reviewed potential need for PleurX catheter with patient as well as daughter with recurrent fairly rapid reaccumulation of pleural fluid on 05/19/25
I have reviewed this again wtih patient is recurrence is noted again after 2 recent taps
Repeat CXR without significant reaccumulation
She has metabolic alkalosis on her chemistry
We will obtain baseline VB.39/ 62/ 84/ 37.5/ 98%--chronic CO2 retention noted
New onset A-fib noted on EKG
She is on PO eliquis
Cards consult obtained
Prior ECHO-reduced EF 29%, LV wall motion is diffusely hypokinetic
She has mild to moderate valvular heart disease
Further management per team
Smoking history noted--denies family history of lung cancer
She had been obtaining her routine mammograms and colonoscopies, her daughter is not sure when she stopped doing those
80 pound weight loss is noted on prior admission, nutrition consult.
Discharge planning is noted
Diagnostic Data
Chest X-Ray: 06/13/25- Status post right thoracentesis. No evidence for pneumothorax.
06/13/25- Interval recurrence of small to moderate right pleural effusion. Several masses again appreciated within the left hemithorax consistent with neoplastic process.
CT Scan: CHEST 05/12/25- No CTA evidence for an acute pulmonary thromboembolism. Solid pulmonary masses throughout both lungs highly suspicious for malignancy/metastatic disease. The largest mass measures 5.8 cm in the left upper lobe. Moderate right
pleural effusion, presumably malignant.
Echo: 05/13/25- 1. Left ventricular ejection fraction is severely reduced with an ejection fraction of 29 % by Owusu's biplane method of discs.
2. Indexed left atrial volume is severely abnormal (>48 ml/m2).
3. Left ventricular wall motion is diffusely hypokinetic.
4. Mild left ventricular hypertrophy.
5. Mildly dilated right atrium.
6. Moderate mitral annular calcification. mild to moderate mitral valve regurgitation.
7. Moderate tricuspid regurgitation.
8. Pleural effusion is noted.
9. Tricuspid valve opens normally. moderate tricuspid regurgitation. Estimated pulmonary artery pressure of 39 mmHg assuming a right atrial pressure of 3 mmHg.
Reports and relevant images were personally reviewed.
Total time spent on this consultation/encounter __51__ minutes which includes review of history, physical exam, medications, laboratory data, personal review of imaging, extensive review of outpatient records, discussion with care team and
respiratory therapy.
Subjective Data
-
Date of Service:
Date of Service: June 17, 2025
Chief Complaint: Pulmonary Follow Up
Subjective:
no new complaints, sleeping on my arrival
stable on RA
Objective Data
Data Reviewed
Vital Signs / I&O / Oxygen:
Vital Signs
Temp Pulse Resp BP Pulse Ox
98.6 F 108 18 96/50 97
06/17/25 07:45 06/17/25 07:45 06/17/25 07:45 06/17/25 07:45 06/17/25 07:45
Intake and Output
06/16/25 06/17/25 06/18/25
06:59 06:59 06:59
Intake Total 240 / 240 760 / 760
Balance 240 / 240 760 / 760
SaO2 97
Nasal Cannula flow liters per 2
minute
Labs/Micro/Reports
Lab Data
06/16/25 06:47
06/16/25 06:47
Microbiology
06/13/25 14:27 Pleural Fluid Fungal Culture - Preliminary
Culture in progress.
Positive cultures are reported as soon as detected.
Final report to follow in four to five weeks.
06/13/25 14:24 Pleural Fluid Body Fluid Culture - Final
No Growth After 72 Hours
06/13/25 14:24 Pleural Fluid Gram Stain - Final
06/13/25 14:28 Pleural Fluid Acid Fast Bacilli Smear - Preliminary
06/13/25 14:28 Pleural Fluid Acid Fast Bacilli Culture - Preliminary
--- NOTE | 2025-06-17 10:29 | CON.ONC ---
Consultation
-
Date Consultation Requested: 06/17/25
Date Consultation Performed: 06/17/25
Requesting Provider: Dr Yue Nuñez
Performing Provider: Dr Isabel Gerber
Reason for Consultation: lymphoma
Impression
Impression
MALT lymphoma, involving lungs with +cytology, and (suspected) skin
Recurrent pleural effusion
Skin rash, itchy
Dementia
Plan
Plan
Discussed mgmt w/ daughter and patient
Agree w/ recs for PleurX catheter
Recommended treatment with Rituxan, weekly x4. Usually well tolerated and can be very effective in treating MALT lymphoma, without significant side effects
Patient/daughter agreeable - will seek insurance approval and scheduling per my office
Will check Hep B panel
Mgmt of cardiac issues per primary team/cardiology
We will follow
Patient History
History of Present Illness
Alee is an 79yo F that I know from prior admissions and outpatient office visits, who was recently diagnosed with MALT lymphoma, with recurrent effusion, and suspected skin involvement. She's been requiring more frequent thoracentesis, and was
admitted 06/13/25 with dyspnea, requiring tap x 1200cc. She has some dementia, offers no complaints.
Past-Medical/Surgical History
PMH - as above, Afib
Patient Medication
�Medication �Instructions �Recorded �Confirmed �Last Taken �Type
escitalopram oxalate 10 mg tablet 10 mg PO DAILY Depression 05/12/25 06/13/25 06/12/25 History
(Lexapro)
memantine 5 mg tablet 5 mg PO BID Neurological Condition 05/12/25 06/13/25 06/12/25 History
simvastatin 40 mg tablet (Zocor) 40 mg PO HS High Cholesterol 05/12/25 06/13/25 06/12/25 History
apixaban 2.5 mg tablet (Eliquis) 2.5 mg PO BID #60 tabs 05/21/25 06/13/25 06/12/25 Rx
carvedilol 6.25 mg tablet 6.25 mg PO BID #60 tabs 05/21/25 06/13/25 06/12/25 Rx
diphenhydramine HCl 50 mg capsule 50 mg PO HS Sleep 06/13/25 06/13/25 06/12/25 History
([employer])
Active Medications
Generic Name Dose Route Start Last Admin
Trade Name Freq PRN Reason Stop Dose Admin
Acetaminophen 650 mg 06/13/25 15:05 06/17/25 07:59
Acetaminophen 325 Mg Tablet PO 07/11/25 15:04 650 mg
Q4HPRN PRN Administration
mild pain/BUI/temp> 100.4F
Apixaban 2.5 mg 06/13/25 20:00 06/17/25 07:59
Apixaban (Eliquis) 2.5 Mg Tablet PO 07/11/25 19:59 2.5 mg
BID AMELIA Administration
Atorvastatin Calcium 20 mg 06/13/25 22:00 06/16/25 21:31
Atorvastatin (Lipitor) 20 Mg Tablet PO 07/11/25 21:59 20 mg
HS AMELIA Administration
Bisacodyl 10 mg 06/13/25 15:05
Bisacodyl 10 Mg Rectal Suppository RECTAL 07/11/25 15:04
[id number] PRN
constipation
Carvedilol 6.25 mg 06/14/25 20:00 06/17/25 08:03
Carvedilol 6.25 Mg Tablet PO 07/12/25 19:59 6.25 mg
BID AMELIA Administration
Clobetasol Propionate 0 applic 06/16/25 12:30 06/17/25 08:03
Clobetasol Propionate 0.05% (Cream) 15 Gram Tube TOPICAL 07/14/25 12:29 1 applic
BID AMELIA Administration
Diphenhydramine HCl 12.5 mg 06/16/25 15:01
Diphenhydramine Elixir (25 Mg/10 Ml) Cup PO 07/14/25 15:00
Q8HPRN PRN
itching
Escitalopram Oxalate 10 mg 06/14/25 08:00 06/17/25 07:59
Escitalopram 10 Mg Tablet PO 07/12/25 07:59 10 mg
DAILY AMELIA Administration
Memantine 5 mg 06/13/25 20:00 06/17/25 07:59
Memantine 10 Mg Tablet PO 07/11/25 19:59 5 mg
BID AMELIA Administration
Metoprolol Tartrate 2.5 mg 06/16/25 06:59 06/16/25 21:31
Metoprolol 5 Mg/5 Ml Vial IV 07/14/25 06:58 2.5 mg
Q4HPRN PRN Administration
HR more than 120
Polyethylene Glycol 17 grams 06/13/25 15:05
Polyethylene Glycol Powder 17 Grams Packet PO 07/11/25 15:04
DAILYPRN PRN
constipation
Senna/Docusate Sodium 1 tablet 06/13/25 15:05
Docusate W/Senna (Jo-Colace) Tablet PO 07/11/25 15:04
BIDPRN PRN
constipation
Sodium Chloride 0 flush 06/13/25 17:00
Sodium Chloride 0.9% (Flush) Syringe IV 07/11/25 16:59
PER PROTOCOL AMELIA
Review of Systems
-
Unable to obtain full review of systems at this time due to: Dementia
History Source: Patient, Family and Records
All Other Systems: Not reviewed unless documented
Physical Exam
-
General: Well Developed, Well Nourished and No Apparent Distress
HEENT: Negative Jaundice
Cardiology: Irregular Rate/Rhythm
Skin: Rash (thickened pinkish plaques to arms bilaterally)
Psych: Calm; Negative Agitated or Intact Judgement/Insight
Labs
Lab Results
WBC 16.2 10^3/uL (4.8-10.8) H 06/16/25 06:47
RBC 3.80 10^6/uL (4.20-5.40) L 06/16/25 06:47
Hgb 11.5 g/dL (12.0-16.0) L 06/16/25 06:47
Hct 36.0 % (37.0-47.0) L 06/16/25 06:47
MCV 94.7 fL (81.0-99.0) 06/16/25 06:47
MCH 30.3 pg (27.0-31.0) 06/16/25 06:47
MCHC 31.9 g/dL (33.0-37.0) L 06/16/25 06:47
RDW 14.4 % (11.5-14.5) 06/16/25 06:47
Plt Count 156 10^3/uL (130-400) 06/16/25 06:47
MPV 10.5 fL (7.4-10.4) H 06/16/25 06:47
Abs Immat Gran (auto) 0.1 10^3/uL (0-0.05) H 06/13/25 11:08
Absolute Neuts (auto) 14.8 10^3/uL (1.4-6.5) H 06/13/25 11:08
Absolute Lymphs (auto) 0.9 10^3/uL (1.2-3.4) L 06/13/25 11:08
Absolute Monos (auto) 0.9 10^3/uL (0.1-0.6) H 06/13/25 11:08
Absolute Eos (auto) 0.1 10^3/uL (0-0.7) 06/13/25 11:08
Absolute Basos (auto) 0.1 10^3/uL (0-0.2) 06/13/25 11:08
Immature Gran % 0.4 % (0-0.5) 06/13/25 11:08
Neutrophils % 87.9 % (42.2-75.2) H 06/13/25 11:08
Lymphocytes % 5.4 % (20.5-51.1) L 06/13/25 11:08
Monocytes % 5.2 % (1.7-9.3) 06/13/25 11:08
Eosinophils % 0.7 % (0-6) 06/13/25 11:08
Basophils % 0.4 % (0-2) 06/13/25 11:08
Creatinine 0.6 mg/dL (0.6-1.0) 06/16/25 06:47
Vital Signs
Vital Signs
Temp Pulse Resp BP Pulse Ox
98.6 F 108 18 96/50 97
06/17/25 07:45 06/17/25 07:45 06/17/25 07:45 06/17/25 07:45 06/17/25 07:45
[2025-06-17 11:06] VITALS: BP 80/52
[2025-06-17 15:00] VITALS: BP 99/57
--- NOTE | 2025-06-17 16:26 | CM ---
CM reviewed chart and spoke to dtr this AM to review dc planning
SNF recs by therapy
Dtr requesting to discuss dc planning after meeting with Dr Gerber today
Call back in the afternoon an VM left to discuss planning
Discharge Disposition- anticipate SNF
[2025-06-17 19:48] VITALS: BP 115/62
[2025-06-17] MEDS: LIPITOR 20 MG PO (19:48)
[2025-06-17] MEDS: BENADRYL ELIXIR 12.5 MG PO (19:55)
[2025-06-17 23:10] VITALS: BP 109/65
[2025-06-18] MEDS: LOPRESSOR 2.5 MG IV (00:47)
[2025-06-18 02:43] VITALS: BP 127/83
[2025-06-18] MEDS: TYLENOL 650 MG PO (02:48)
--- NOTE | 2025-06-18 05:24 | DOWNTIME ---
There was a [employer] Downtime on 06/18/2025 from 0100 to 06/18/2025 at 0215. Downtime documentation of patient's care, including medication administrations, has been reconciled in the electronic record per guidelines. Refer to the
patient's paper chart under the miscellaneous tab to see printed paper medication records and downtime forms.
[2025-06-18 06:35] VITALS: BMI 23.1
[2025-06-18 07:15] VITALS: BP 98/65
--- NOTE | 2025-06-18 09:19 | W.PN.HOSP.TC ---
Today's Communication/Plan
-
dc after home O2 evaluation
Assessment / Plan
Assessment / Plan
Physical exam:
General: Well Developed, Well Nourished and No Apparent Distress
HEENT: Normocephalic, Moist mucous membranes and Atraumatic
Respiratory: rhonchi improved L>r, oxygen NC
Cardiac: S1/S2 and irregularly irregular no Murmur or Rub
GI: Soft, Non Tender, Non Distended and Normal Bowel Sounds; No Organomegaly
Musculoskeletal: No Clubbing, No Cyanosis and No Edema
Neuro: Awake, apparent dementia
Psych: Calm
# Acute hypoxic respiratory failure with distress / using accessory muscles and needing O2
malignant pleural effusion, right side.
- Chest x-ray with impression of Interval recurrence of small to moderate right pleural effusion.Several masses again appreciated within the left hemithorax consistent with neoplastic process.
- Status post thoracentesis with 1150 cc of clear yellow pleural fluid removed. Fluid culture preliminary remains negative for growth.
- Wean oxygen as tolerated. Incentive spirometer encouraged.
d/w daughter, pt, agreed to Asept if needed. I d/w pulmonary, will see her in office in 1-2 week and they will manage catheter placement and chest x ray.
# Atrial fibrillation with rapid ventricular response
Sometimes Uncontrolled with borderline low SBP
On Coreg , home dose
c/w Low dose IV BB PRN
Avoiding CCB due to low EF, Cardiology opted to remain on Coreg.
seen by cardiology, ok with current heart rate, c/w BB
# B-cell MALT lymphoma
-Lung biopsy results were noted.
d/w Dr. Gerber. Family agreed to try Immunotherapy, will f/u in office.
#Chronic HFrEF
Echo 05/26: Left ventricular ejection fraction is severely reduced with an ejection fraction of 29 % with mild to moderate MR, moderate TR and mildly increased pulmonary pressures estimated 39 mmHg
Appears euvolemic
Goal-directed medical therapy limited by hypotension
# Hypokalemia
# Hypercholesterolemia
Continue simvastatin
# Anxiety/depression
Continue Lexapro
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
Continue memantine
# Deep dermal stage 2 sacral pressure injury, POA.
d/w wound care nurse, orders are placed
#DVT prophylaxis
-Eliquis
DNR DNI
PT eval, recommended SNF but family decided home care to start therapy
dc planning: I d/w oncology, prefer home discharge so pt can be started on Rituxan ARON to help control her disease. I d/w daughter ( Naomie), she confirmed to discharge home with home care.
Total discharge time spent to see the patient, examine the patient, review data and lab results, discuss discharge plan with patient, daughter, keycase assembler, nursing staff around 65 minutes
Anticipated Discharge: Today
Subjective/Interval History
-
Date of Service: June 18, 2025
No chest pain
denies sob, fever
Objective Data
-
Vital Signs:
Vital Signs
Temp Pulse Resp BP Pulse Ox
99.2 F 89 16 98/65 95
06/18/25 07:15 06/18/25 07:15 06/18/25 07:15 06/18/25 07:15 06/18/25 07:15
I&O
06/17/25 06/18/25 06/19/25
06:59 06:59 06:59
Intake Total 760 / 760 480 / 480
Balance 760 / 760 480 / 480
[2025-06-18] MEDS: ELIQUIS 2.5 MG PO (09:21)
[2025-06-18] MEDS: CLOBETASOL PROPIONATE 0.05% CREAM 1 APPLIC TOPICAL (09:21)
[2025-06-18] MEDS: LEXAPRO 10 MG PO (09:21)
[2025-06-18] MEDS: COREG 6.25 MG PO (09:21)
[2025-06-18] MEDS: NAMENDA 5 MG PO (09:21)
--- NOTE | 2025-06-18 09:27 | W.PN.PUL3 ---
Today's Communication / Plan
-
Home O2 eval with O2 niru 90%, no need for home O2
Repeat CXR as OP in next 1-2 weeks to await fluid reaccumulation
Can arrange ASEPT placement as OP, family aware and in agreement
Outpatient FU to be arranged
Discharge planning per team
Assessment
-
Patient is an 79-year-old female with previous history of depression, dementia, hypercholesterolemia, with recent diagnosis of MALT lymphoma presenting with worsening shortness of breath with exertion and recurrent pleural effusion. This was worked
up recently with numerous thoracentesis and eventual lung biopsy demonstrating MALT lymphoma. She was discharged on 05/21/2025. She was also noted to be in A-fib with RVR. She is readmitted 06/13/25. She has had repeat thoracentesis on 06/13/2025
for 1200 cc of fluid and 06/06/2025 for 1150 cc.
Recurrent pleural effusion, presumed malignant/cyto negative
Acute on chronic SOB
Afib with RVR
SOB
Leukocytosis
Hypokalemia
Metabolic alkalosis
Chronic hypercarbic respiratory failure
Conditions present [employer]
A-fib on Eliquis
MALT Lymphoma, follows with oncology
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
Malignant effusions s/p thoracentesis x 2 06/13/25, 06/06/25--negative cyto x 2
HLD
ACC/AHA stage C chronic systolic heart failure
Anxiety/depression
Sacral wound
Alzheimer's disease
Former smoker, half a pack a day for 15 years, quit over 30 years ago
Plan
Currently stable on RA, offers no new complaints
Prior history of lung disease is NOT noted -- She is a former smoker, half a pack a day for 15 years, quit over 30 years ago.
She has never been diagnosed previously with lung conditions, never seen pulmonary in the past.
She denies family history of lung cancer.
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
Respiratory status improved after repeat thoracentesis, x 2 needed in past 2 weeks since prior discharge
Thoracentesis 05/13/2025 noted
Repeat thoracentesis 05/19/2025-reportedly -1 L,-exudate, microbiology and pathology pending
Cyto previously negative
Chem: pH 7.5 - wbc 1045 - glu 109 - tp 3.4 - ldh 152 - tg <30 -- exudate
Oncology following-correspondence reviewed
Lung biopsy + MALT
Dr. Love reviewed potential need for PleurX catheter with patient as well as daughter with recurrent fairly rapid reaccumulation of pleural fluid on 05/19/25
I have reviewed this again wtih patient is recurrence is noted again after 2 recent taps
Repeat CXR without significant reaccumulation
She has metabolic alkalosis on her chemistry
We will obtain baseline VB.39/ 62/ 84/ 37.5/ 98%--chronic CO2 retention noted
New onset A-fib noted on EKG
She is on PO eliquis
Cards consult obtained
Prior ECHO-reduced EF 29%, LV wall motion is diffusely hypokinetic
She has mild to moderate valvular heart disease
Further management per team
Smoking history noted--denies family history of lung cancer
She had been obtaining her routine mammograms and colonoscopies, her daughter is not sure when she stopped doing those
80 pound weight loss is noted on prior admission, nutrition consult.
Discharge planning is noted
We will arrange short term FU
Diagnostic Data
Chest X-Ray: 06/13/25- Status post right thoracentesis. No evidence for pneumothorax.
06/13/25- Interval recurrence of small to moderate right pleural effusion. Several masses again appreciated within the left hemithorax consistent with neoplastic process.
CT Scan: CHEST 05/12/25- No CTA evidence for an acute pulmonary thromboembolism. Solid pulmonary masses throughout both lungs highly suspicious for malignancy/metastatic disease. The largest mass measures 5.8 cm in the left upper lobe. Moderate right
pleural effusion, presumably malignant.
Echo: 05/13/25- 1. Left ventricular ejection fraction is severely reduced with an ejection fraction of 29 % by Owusu's biplane method of discs.
2. Indexed left atrial volume is severely abnormal (>48 ml/m2).
3. Left ventricular wall motion is diffusely hypokinetic.
4. Mild left ventricular hypertrophy.
5. Mildly dilated right atrium.
6. Moderate mitral annular calcification. mild to moderate mitral valve regurgitation.
7. Moderate tricuspid regurgitation.
8. Pleural effusion is noted.
9. Tricuspid valve opens normally. moderate tricuspid regurgitation. Estimated pulmonary artery pressure of 39 mmHg assuming a right atrial pressure of 3 mmHg.
Reports and relevant images were personally reviewed.
Total time spent on this consultation/encounter __51__ minutes which includes review of history, physical exam, medications, laboratory data, personal review of imaging, extensive review of outpatient records, discussion with care team and
respiratory therapy.
Subjective Data
-
Date of Service:
Date of Service: June 18, 2025
Chief Complaint: Pulmonary Follow Up
Subjective:
No new complaints, she is on 2L NC
But on walk testing today, O2 niru 90%
Objective Data
Data Reviewed
Vital Signs / I&O / Oxygen:
Vital Signs
Temp Pulse Resp BP Pulse Ox
99.2 F 89 16 98/65 95
06/18/25 07:15 06/18/25 09:21 06/18/25 07:15 06/18/25 09:21 06/18/25 07:15
Intake and Output
06/17/25 06/18/25 06/19/25
06:59 06:59 06:59
Intake Total 760 / 760 480 / 480
Balance 760 / 760 480 / 480
SaO2 95
Nasal Cannula flow liters per 2
minute
Physical Exam
General: Comfortable and Other (NAD)
HEENT: Normocephalic, Anicteric and Moist Mucous Membranes
Cardiovascular: S1-S2 and Regular Rhythm
Respiratory: Clear and Non-Labored Respirations
GI: Soft, Non Distended and Non Tender
Neurology: Awake, Alert, Oriented and No Motor Deficits
Skin: Warm, Dry and Good Color
Labs/Micro/Reports
Lab Data
06/16/25 06:47
06/16/25 06:47
Microbiology
06/13/25 14:27 Pleural Fluid Fungal Culture - Preliminary
Culture in progress.
Positive cultures are reported as soon as detected.
Final report to follow in four to five weeks.
06/13/25 14:24 Pleural Fluid Body Fluid Culture - Final
No Growth After 72 Hours
06/13/25 14:24 Pleural Fluid Gram Stain - Final
06/13/25 14:28 Pleural Fluid Acid Fast Bacilli Smear - Preliminary
06/13/25 14:28 Pleural Fluid Acid Fast Bacilli Culture - Preliminary
--- NOTE | 2025-06-18 11:03 | CM ---
Addendum entered by Adeline Carmona 06/18/25 12:21:
IMM explained & signed. In chart
Addendum entered by Adeline Carmona 06/18/25 12:11:
Home oxygen assessment completed by respiratory - does not qualify for home oxygen
Addendum entered by Adeline Carmona 06/18/25 11:42:
CM consult for VN completed
Original Note:
Met with patient and daughter
Daughter would like Home Health vs. SNF
she states she spoke with oncology
06/15 PT rec SNF
options of home health reviewed-prefer [facility]
notified liaison Ewelina and referral to be placed in [facility]
PLAN: Home with daughter and [facility] when stable
[2025-06-18 11:06] VITALS: BP 92/69
--- NOTE | 2025-06-18 14:57 | W.DCSUMMARY ---
Discharge Summary
Discharge Data
Date of Admission: 06/13/25
Date of Discharge: 06/18/25
-
Pending Results: No
Hospital Course
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 She was found to have right pleural effusion. Patient had thoracentesis with drainage of 1200 cc. Patient was noticed to be requiring
frequent thoracentesis. She was evaluated by pulmonary doctor. Recommendation to do catheter. Patient and family agreed to catheter and plan to pursue it in the outpatient setting when fluid would build up again to allow easier access with
catheter. Patient was evaluated by hematology/oncology. Primary oncologist Dr. Gerber. Recommended treatment with Rituxan in the outpatient setting. Patient started to improve, hypoxia resolved and she did not require home oxygen therapy.
Pulmonary doctor will monitor pleural effusion and arrange for Asept catheter placement. Patient remained hemodynamically stable. She was evaluated by physical therapy and recommended fdc facility placement. Discharge plan was
discussed with patient and her daughter and they chose to go home with home care services to pursue outpatient lymphoma treatment. Patient was discharged in a stable condition.
Discharge Plan
-
Patient Disposition: Home with Home Care
Discharge Diagnosis/Procedures: MALT Lymphoma
Recurrent pleural effusion, presumed malignant.
Acute on chronic SOB
Afib with RVR
Leukocytosis
Hypokalemia
Metabolic alkalosis
Chronic hypercarbic respiratory failure
Diet: As tolerated
Activity Restrictions/Additional Instructions:
Wound Care Instructions
Sacral ulcer-clean with saline or soap and water, silicone border foam (prefer sacral shaped type), change every 3 days and as needed for loosened dressing.
Turning schedule
Elevate heels off bed with pillow/s
Presure redistributing chair cushion (i.e. gel or Air chair cushion
Follow up at wound care center call for an appointment.
Referrals:
Leilani Mckoy MD [Family Provider, Internal Medicine]
Lizette,Leslee Hare, DO [Active, Pulmonary Medicine]
Referral Note: 1-2 weeks, PFTs
Prescriptions:
New
clobetasol 0.05 % Cream
1 applic topical BID Qty: 30 2RF
Continued
simvastatin [Zocor] 40 mg Tablet
40 mg PO HS
escitalopram oxalate [Lexapro] 10 mg Tablet
10 mg PO DAILY
memantine 5 mg Tablet
5 mg PO BID
carvedilol 6.25 mg Tablet
6.25 mg PO BID Qty: 60 0RF
Eliquis 2.5 mg Tablet
2.5 mg PO BID Qty: 60 0RF
Discontinued
diphenhydramine HCl [Unisom SleepGels] 50 mg Capsule
50 mg PO HS
Discharge Orders:
Discharge Patient (As Directed); Ordered 06/18/25
Ordered By: Luz Nuñez
Discharge Date and Time
Discharge Date/Time: 06/18/25 14:31
Print Language: KOREAN
[2025-06-19 19:13] LABS: Hepatitis B Surface Antigen Negative (Negative)
== END 2025-06-18 14:31 | disposition home health service (06) | DRG 840 ==
LOC: 3 WEST ACU 13:25
PROVIDERS: Hospitalist; Physician Assistant; Radiology Vascular & Interventional Radiology; Registered Nurse; ADMITTING PHYSICIAN Internal Medicine; ATTENDING PHYSICIAN Internal Medicine; CONSULT PHYSICIAN Internal Medicine Cardiovascular Disease; CONSULT PHYSICIAN Internal Medicine Hematology & Oncology; EMERGENCY PHYSICIAN Emergency Medicine; FAMILY PHYSICIAN Internal Medicine; OTHER PHYSICIAN Internal Medicine
PROC: 0W993ZZ Drainage of Right Pleural Cavity, Percutaneous Approach (ICD-10-PCS; 2025-06-13)
DX: C88.40 Extranodal marginal zone B-cell lymphoma of mucosa-associated lymphoid tissue [MALT-lymphoma] not having achieved remission (principal); J96.01 Acute respiratory failure with hypoxia; F02.A4 Dementia in other diseases classified elsewhere, mild, with anxiety; I48.19 Other persistent atrial fibrillation; J91.0 Malignant pleural effusion; F02.A3 Dementia in other diseases classified elsewhere, mild, with mood disturbance; I42.9 Cardiomyopathy, unspecified; E87.3 Alkalosis; I50.22 Chronic systolic (congestive) heart failure; J96.12 Chronic respiratory failure with hypercapnia; G30.9 Alzheimer's disease, unspecified; E78.00 Pure hypercholesterolemia, unspecified; D72.829 Elevated white blood cell count, unspecified; E87.6 Hypokalemia; I11.0 Hypertensive heart disease with heart failure; L89.152 Pressure ulcer of sacral region, stage 2; L29.89 Other pruritus; R21 Rash and other nonspecific skin eruption; F32.A Depression, unspecified; Z66 Do not resuscitate; Z87.891 Personal history of nicotine dependence; Z88.1 Allergy status to other antibiotic agents; Z79.01 Long term (current) use of anticoagulants; Z88.0 Allergy status to penicillin; Z90.49 Acquired absence of other specified parts of digestive tract; Z79.899 Other long term (current) drug therapy; I95.9 Hypotension, unspecified
CPT/HCPCS: 32555; 71045; 71046; 80048; 80053; 82150; 82805; 82945; 83615; 83735; 83880; 83986; 84100; 84157; 84443; 84478; 85025; 85027; 86704; 86706; 87015; 87070; 87102; 87116; 87205; 87206; 87340; 89051; 93005; 96374; 97163; 99285

== ENCOUNTER 2025-06-21 14:36 | Inpatient (IN) | payer MEDICARE, SELFPAY ==
[2025-06-21] VITALS (7 sets, daily range): BP systolic 99–132; BP diastolic 64–87
--- NOTE | 2025-06-21 11:31 | ED.GENMED ---
History of Present Illness
<Dian Redman PA-C - Last Filed: 06/21/25 18:34>
General
Chief Complaint: Breathing Problem
Source: patient and family (Daughter at bedside)
Exam Limitations: none
Time Seen by Provider: 06/21/25 11:17
Nursing documentation reviewed up to this point in time: agreed with
History of Present Illness
History of Present Illness:
Patient is an 79-year-old female with history hypertension, hyperlipidemia, atrial fibrillation on Eliquis, recent diagnosis of lymphoma with recurrent right-sided pleural effusion presenting with worsening shortness of breath. Patient states she
was discharged from the hospital on Monday after 4-day stay for shortness of breath secondary to recurrent right-sided pleural effusion and atrial fibrillation with rapid ventricular response. Patient's daughter, who she lives with, noticed that
her mom became progressively more short of breath starting on afternoon. Her visiting nurse came yesterday who felt that the fluid was building back up in her lung.
She was scheduled to have an outpatient chest x-ray today however due to worsening symptoms they came to the emergency department for evaluation.
She denies any clear exertional or positional component to symptoms. No associated chest pain or fever. She has had a few days of a dry cough. No known sick contacts. No lower extremity edema.
Patient is compliant with her Eliquis.
Review of Systems
<Dian Redman PA-C - Last Filed: 06/21/25 18:34>
Review of Systems
Allergies reviewed?: Yes
All Other Systems: ROS reviewed and negative except as documented in HPI and ROS
Phy Exam
<Dian Redman PA-C - Last Filed: 06/21/25 18:34>
Physical Exam
Physical Exam:
Vitals: Mildly tachycardic and tachypneic, otherwise stable vital signs.
General: Patient appears in no distress.
Skin: Warm and dry, no rashes or lesions
Head: Normocephalic, atraumatic
Eyes: Sclera nonicteric. EOMs intact.
Throat: Protecting airway
Neck: Normal ROM, no cervical spine tenderness, no meningismus. No JVD
Cardiac: Regular rate, irregularly irregular rhythm, no murmurs.
Pulm: Mildly tachypneic. Decreased breath sounds on right side. No wheezing.
Abdomen: No abdominal tenderness.
Extremities: No evidence of cyanosis or edema. 2+ palpable DP pulses bilaterally
Neuro: AAOx3. Grossly intact.
Psychiatric: Normal affect.
Scores
<Dian Redman PA-C - Last Filed: 06/21/25 18:34>
Heart Failure Risk
Heart Failure Risk Score: Not Applicable
Course
<Dian Redman PA-C - Last Filed: 06/21/25 18:34>
Orders/Labs/Results
Orders:
Orders
06/21/25 11:30
Cardiac Monitoring- Treatment ONCE
06/21/25 11:31
Electrocardiogram (*1) Urgent
Reason for Study: Shortness of Breath
EKG- Treatment ONCE
CR Chest - 2 Views Urgent
Comment:
Reason For Exam: SOB, decreased breath sounds on right
06/21/25 11:53
COVID-19 Antigen Urgent
Source: Nasal Swab
Complete Blood Count/With Diff Urgent
Comprehensive Metabolic Panel Urgent
NT-proBNP Urgent
Influenza A+B Rapid Molecular Urgent
MOOKIE Source: Nasal Swab
Specimen Description:
06/21/25 13:46
LevoFLOXacin 750 MG/150 ML [Levaquin] 750 mg in 150 ml IV NOW
06/21/25 14:12
Admit/Transfer Patient As Directed
Co-Sign Provider:
Level of Care: Inpatient admission
Assign to:: Medical/Surgical
Physician / Group: Hospitalist
Diagnosis: Recurrent pleural effusion
Reason for Hospitalization: .
Expected length of stay greater than two midnights?: Yes
ELOS- Estimated Length of Stay in days: 3
I certify the patient meets the requirements for IP care: Yes
PRN Pain Medication Management As Directed
May give lesser potent ordered pain med per pt: Yes
preference::
Protocol:: Medication orders for pain may be administered in a
manner that supports deferring to patient preference
when the pt is:
- Requesting an ordered lesser potent pain medication.
Least to most potent pain medications are defined
as: acetaminophen < NSAID < tramadol < opioids
(morphine, oxycodone, hydromorphone).
- Requesting a lesser dose of the same medication IF
ORDERED.
- Requesting a less intrusive route of administration
if both routes are prescribed by the provider (PO <
IV).
06/21/25 14:13
Code Status As Directed
Resuscitation Status: Do not resuscitate
Reached after discussion with pt or family/Healthcare POA: Yes
06/21/25 14:14
DNR Bracelet Application ONCE
06/21/25 14:15
Diltiazem 125 mg/125 ml Nss [Cardizem] 125 mg in 125 ml IV PER PROTOCOL
Initial dose in mg/hr, then titrate:: 5
Titrate to keep:: Heart rate 80-100 bpm
Titrate by mg/hr:: 5 mg/hr
Frequency of titrations (minutes):: 15
Maximum dose in mg/hr:: 15
06/21/25 Dinner
IDDSI 6 - Soft & Bite Sized
At Your Request: Full Participation
06/21/25 16:03
Acetaminophen [Tylenol] 650 mg PO Q4HPRN PRN
Ondansetron Injectable [Zofran] 4 mg IV Q6HPRN PRN
06/21/25 16:03
Consult Interventional Radiology [IRAD CONSULT] Routine
Consulting Provider: Jacob Ansari
Was physician already notified: Yes
Procedure being ordered, including laterality if: Recurrent right malignant pleural effusion/need for
applicable: catheter
Acknowledgement that appropriate orders are entered: Yes
Consult Pulmonary [PULMONARY CONSULT] Routine
Consulting Provider: Darlin Greene
Was physician already notified: Yes
Reason for consult: Recurrent right malignant pleural effusion/need for catheter
06/21/25 20:00
Apixaban [Eliquis] 2.5 mg PO BID
Carvedilol [Coreg] 6.25 mg PO BID
Memantine HCl [Namenda] 5 mg PO BID
06/22/25 06:00
Ot Eval And Treat IN AM
Pt Eval And Treat IN AM
Activity Level: As Tolerated
06/22/25 08:00
Clobetasol Propionate [Clobetasol Propionate 0.05% Cream] 1 applic TOPICAL DAILY
Escitalopram Oxalate [Lexapro] 10 mg PO DAILY
Abnormal Lab Results
06/21/25
11:53
WBC 13.3 H 10^3/uL
(4.8-10.8)
MCHC 32.6 L g/dL
(33.0-37.0)
RDW 14.6 H %
(11.5-14.5)
Abs Immat Gran (auto) 0.1 H 10^3/uL
(0-0.05)
Absolute Neuts (auto) 11.5 H 10^3/uL
(1.4-6.5)
Absolute Lymphs (auto) 0.9 L 10^3/uL
(1.2-3.4)
Absolute Monos (auto) 0.8 H 10^3/uL
(0.1-0.6)
Neutrophils % 86.0 H %
(42.2-75.2)
Lymphocytes % 6.4 L %
(20.5-51.1)
Carbon Dioxide 32 H mmol/L
(22-30)
Glucose 104 H mg/dl
(70-99)
Total Protein 5.7 L g/dl
(6.3-8.2)
Albumin 2.9 L g/dl
(3.5-5.0)
06/21/25 11:53
06/21/25 11:53
Vital Signs
Initial and Last Documented VS:
Initial Vital Signs
Pulse Resp BP Pulse Ox
105 27 103/64 93
06/21/25 09:45 06/21/25 09:45 06/21/25 09:45 06/21/25 09:45
Last Documented Vital Signs
Temp Pulse Resp BP Pulse Ox
97 F 110 18 132/87 96
06/21/25 16:09 06/21/25 16:09 06/21/25 16:09 06/21/25 16:09 06/21/25 16:09
<Gaudencio Monroe MD - Last Filed: 06/21/25 15:39>
Orders/Labs/Results
Orders:
Orders
06/21/25 11:30
Cardiac Monitoring- Treatment ONCE
06/21/25 11:31
Electrocardiogram (*1) Urgent
Reason for Study: Shortness of Breath
EKG- Treatment ONCE
CR Chest - 2 Views Urgent
Comment:
Reason For Exam: SOB, decreased breath sounds on right
06/21/25 11:53
COVID-19 Antigen Urgent
Source: Nasal Swab
Complete Blood Count/With Diff Urgent
Comprehensive Metabolic Panel Urgent
NT-proBNP Urgent
Influenza A+B Rapid Molecular Urgent
MOOKIE Source: Nasal Swab
Specimen Description:
06/21/25 13:46
LevoFLOXacin 750 MG/150 ML [Levaquin] 750 mg in 150 ml IV NOW
06/21/25 14:12
Admit/Transfer Patient As Directed
Co-Sign Provider:
Level of Care: Inpatient admission
Assign to:: Medical/Surgical
Physician / Group: Hospitalist
Diagnosis: Recurrent pleural effusion
Reason for Hospitalization: .
Expected length of stay greater than two midnights?: Yes
ELOS- Estimated Length of Stay in days: 3
I certify the patient meets the requirements for IP care: Yes
PRN Pain Medication Management As Directed
May give lesser potent ordered pain med per pt: Yes
preference::
Protocol:: Medication orders for pain may be administered in a
manner that supports deferring to patient preference
when the pt is:
- Requesting an ordered lesser potent pain medication.
Least to most potent pain medications are defined
as: acetaminophen < NSAID < tramadol < opioids
(morphine, oxycodone, hydromorphone).
- Requesting a lesser dose of the same medication IF
ORDERED.
- Requesting a less intrusive route of administration
if both routes are prescribed by the provider (PO <
IV).
06/21/25 14:13
Code Status As Directed
Resuscitation Status: Do not resuscitate
Reached after discussion with pt or family/Healthcare POA: Yes
06/21/25 14:14
DNR Bracelet Application ONCE
06/21/25 14:15
Diltiazem 125 mg/125 ml Nss [Cardizem] 125 mg in 125 ml IV PER PROTOCOL
Initial dose in mg/hr, then titrate:: 5
Titrate to keep:: Heart rate 80-100 bpm
Titrate by mg/hr:: 5 mg/hr
Frequency of titrations (minutes):: 15
Maximum dose in mg/hr:: 15
09/20/25 Dinner
IDDSI 6 - Soft & Bite Sized
At Your Request: Full Participation
06/21/25 16:03
Acetaminophen [Tylenol] 650 mg PO Q4HPRN PRN
Ondansetron Injectable [Zofran] 4 mg IV Q6HPRN PRN
06/21/25 16:03
Consult Interventional Radiology [IRAD CONSULT] Routine
Consulting Provider: Jacob Ansari
Was physician already notified: Yes
Procedure being ordered, including laterality if: Recurrent right malignant pleural effusion/need for
applicable: catheter
Acknowledgement that appropriate orders are entered: Yes
Consult Pulmonary [PULMONARY CONSULT] Routine
Consulting Provider: Darlin Greene
Was physician already notified: Yes
Reason for consult: Recurrent right malignant pleural effusion/need for catheter
06/21/25 20:00
Apixaban [Eliquis] 2.5 mg PO BID
Carvedilol [Coreg] 6.25 mg PO BID
Memantine HCl [Namenda] 5 mg PO BID
06/22/25 06:00
Ot Eval And Treat IN AM
Pt Eval And Treat IN AM
Activity Level: As Tolerated
06/22/25 08:00
Clobetasol Propionate [Clobetasol Propionate 0.05% Cream] 1 applic TOPICAL DAILY
Escitalopram Oxalate [Lexapro] 10 mg PO DAILY
Abnormal Lab Results
06/21/25
11:53
WBC 13.3 H 10^3/uL
(4.8-10.8)
MCHC 32.6 L g/dL
(33.0-37.0)
RDW 14.6 H %
(11.5-14.5)
Abs Immat Gran (auto) 0.1 H 10^3/uL
(0-0.05)
Absolute Neuts (auto) 11.5 H 10^3/uL
(1.4-6.5)
Absolute Lymphs (auto) 0.9 L 10^3/uL
(1.2-3.4)
Absolute Monos (auto) 0.8 H 10^3/uL
(0.1-0.6)
Neutrophils % 86.0 H %
(42.2-75.2)
Lymphocytes % 6.4 L %
(20.5-51.1)
Carbon Dioxide 32 H mmol/L
(22-30)
Glucose 104 H mg/dl
(70-99)
Total Protein 5.7 L g/dl
(6.3-8.2)
Albumin 2.9 L g/dl
(3.5-5.0)
06/21/25 11:53
06/21/25 11:53
Vital Signs
Initial and Last Documented VS:
Initial Vital Signs
Pulse Resp BP Pulse Ox
105 27 103/64 93
06/21/25 09:45 06/21/25 09:45 06/21/25 09:45 06/21/25 09:45
Last Documented Vital Signs
Temp Pulse Resp BP Pulse Ox
97 F 110 18 132/87 96
06/21/25 16:09 06/21/25 16:09 06/21/25 16:09 06/21/25 16:09 06/21/25 16:09
<Dian Redman PA-C - Last Filed: 06/21/25 18:34>
MDM/Problems Addressed
Differential Diagnosis Includes:
Not limited to: Pleural effusion, pneumothorax, bronchitis, pneumonia, symptomatic atrial fibrillation, less likely pulmonary embolism, etc.
MDM/Problems Addressed:
79-year-old female with progressively worsening shortness of breath and mild cough. No associated chest pain, fevers. Patient with recent diagnosis of lymphoma and history of recurrent right-sided pleural effusions. Patient mildly tachycardic and
tachypnea on arrival however afebrile. On exam�patient does not appear in any respiratory distress. Tachycardic, irregularly irregular rate. Decreased lung sounds on right side without any wheezing. No abdominal pain or lower extremity edema.
Differential as above. Given history and physical exam�concern for recurrent right-sided pleural effusion as well as symptomatic atrial fibrillation with rapid ventricular response. With history of recent cough�infectious etiologies would be on
differential as well including bronchitis and pneumonia. Pulmonary embolism much less likely as patient is anticoagulated on Eliquis and compliant with medication. Do not suspect acute coronary syndrome
ED plan: Labs, proBNP, chest x-ray, viral studies.
Update: CBC with mild leukocytosis. Chemistry without any clinically significant abnormalities. BNP of 9290. Chest x-ray reveals recurrent right-sided pleural effusion with possible overlying pneumonia.
Patient will require admission for further management and likely IR aspect catheter placement. Will hold rate control at this time given soft BPs. Will cover patient with antibiotics for potential pneumonia. Patient accepted to hospitalist
service in stable condition.
Chronic conditions affecting care:
Recurrent right-sided pleural effusions, hypertension, atrial fibrillation on Eliquis
Acute Exacerbation and/or Progression of Chronic Illness:
Atrial fibrillation with rapid ventricular response, recurrent right-sided pleural effusion
<Dian Redman PA-C - Last Filed: 06/21/25 18:34>
*Radiology
Radiology exam reviewed: preliminary read by ED provider (Chest x-ray reviewed by mo-right sided pleural effusion) and radiology read reviewed
*Pulse Oximetry
SaO2: 93
Oxygen Mode of Delivery: Room air
Patient hypoxic: no
*EKG
Interpreted by ED Provider?: Yes
EKG Intrepretation Date: 06/21/25
Interpretation: abnormal
Comparison EKG: no changes
Heart Rate: 141
Rate: tachycardiac
Rhythm: a-fib
[place]: left axis deviation
Interval: normal QT interval
QRS Pattern: normal QRS
Ischemia: no ischemia
*Sandwich Maker Interpretation
Rate: tachycardiac
Interpretation: abnormal
Heart Rate: 110
Rhythm: a-fib
*Critical Care Note
Total Time (30-74mins, 75-104mins- exclusive of procedures): Not Applicable
Data Reviewed
Review of Other/Old Records Reveals: Discharge Summary (Discharge summary from 06/17/2025)
<Dian Redman PA-C - Last Filed: 06/21/25 18:34>
Patient Management
Discussion with other providers: Hospitalist
Escalation/DeEscalation of care consider admission/obs:
Admit for further management
ED Attending Note
<Dian Redman PA-C - Last Filed: 06/21/25 18:34>
-
Portions of this chart may have been created with voice recognition software.� Occasional wrong word or��sound alike� substitutions may have occurred due to the inherent limitations of voice recognition software.
<Gaudencio Monroe MD - Last Filed: 06/21/25 15:39>
ED Attending Note
Patient seen and examined by attending physician: Yes
I performed the substantive portion of visit, reviewed & personally made and approve the management plan that is documented in note by myself or CLAY.: Yes
ED Attending Note:
79-year-old female with increased shortness of breath history of thoracentesis in the past. Some cough.
On exam patient is nontoxic in no distress. Mild tachypnea at rest. Pulse ox 93% on room air. Mildly tachycardic.
Lungs with decreased breath sounds in the right half of the lung. Some mild rhonchi. Heart tacky and irregular. Abdomen benign. Warm and dry. Perfusing well.
Impression is atrial fibrillation RVR with a moderate right pleural effusion. Warrants further inpatient management likely will need a thoracentesis catheter. Will also treat for pneumonia.
Discharge Plan
Departure
Patient Disposition: Admit
Date of Disposition: 06/21/25
Time of Disposition: 13:45
Presentation/result/management discussed w/ accepting MD/DO: Hospitalist
Discharge Problem:
Pleural effusion, right, Atrial fibrillation with rapid ventricular response, Pneumonia involving right lung
Interventions
Interventions:
*Risk Screen - Suicide Last Done: 06/21/25 16:02
*General Assessment Last Done: 06/21/25 11:14
*Neglect/Abuse Screening Last Done: 06/21/25 09:45
*ED- Fall Risk Assessment Last Done: 06/21/25 11:14
*ED COVID-19 Vaccine History Last Done: 06/21/25 16:02
*Nursing Disposition Last Done: 06/21/25 15:46
ED- Cardiac Assessment Last Done: 06/21/25 11:14
ED- Pulmonary Assessment Last Done: 06/21/25 11:14
Discharge Date and Time
Discharge Date/Time: 06/21/25 15:47
[2025-06-21 12:25] LABS: Hematocrit 41.4 % (37.0-47.0); Hemoglobin 13.5 g/dL (12.0-16.0); Mean Corp Hgb Conc. 32.6 g/dL (33.0-37.0); Mean Corpuscular Volume 92.0 fL (81.0-99.0); Nucleated Red Blood Cells % 0 %; Platelet Count 250 10^3/uL (130-400); Red Cell Dist. Width 14.6 % (11.5-14.5)
[2025-06-21 12:35] LABS: ALT (SGPT) 12 U/L (0-35); AST (SGOT) 18 U/L (14-36); Albumin 2.9 g/dl (3.5-5.0); Alkaline Phosphatase 108 U/L (38-126); Blood Urea Nitrogen 12 mg/dl (7-17); Calcium 8.7 mg/dl (8.4-10.2); Carbon Dioxide 32 mmol/L (22-30); Chloride 102 mmol/L (98-107); Glucose 104 mg/dl (70-99); Potassium 4.0 mmol/L (3.5-5.1); Sodium 136 mmol/L (135-145); Total Protein 5.7 g/dl (6.3-8.2); eGFR > 60.00
[2025-06-21 12:39] LABS: COVID-19 Antigen Negative (Negative)
--- NOTE | 2025-06-21 13:47 | HPS.HSE ---
Family Physician
-
Family Physician: Leilani Mckoy
Chief Complaint
-
Shortness of breath
History of Present Illness
79 years old female who was recently discharged from the hospital after treating her for recurrent malignant right pleural effusion. Patient was supposed to get aspiration catheter but she did not have enough fluid to safely place the catheter.
Patient was discharged home to follow-up with pulmonary and repeat chest x-ray for catheter placement. She was also seen by oncologist and recommended to start Rituxan treatment and the goal was to do home discharge with home health services to be
able to start immunotherapy as soon as possible.
Patient went home and started to struggle with exertional shortness of breath. No hypoxia. No coughing. No fevers. Repeat chest x-ray in the ER showed progression right pleural effusion with same chronic pulmonary mets. Plan of care discussed
with patient and daughter at bedside.
Medical History
Past Medical History
Past Medical History: Reports Other (MALT lymphoma, persistent atrial fibrillation on Eliquis, pulmonary metastases, hyperlipidemia, chronic hypotension, pressure skin injury, Alzheimer disease, anxiety/depression, former smoker,)
Past Surgical History: Reports Other (No recent major surgery)
Social History
Tobacco: Former Smoker
Alcohol: None
Drug: None
Living: With Family
Family History
Family History: Not pertinent
Allergies / Home Medications
Allergies reflects when Allergies were last updated in [facility].
Home Medications with original date entered in [facility]
Allergy/Medication List:
Allergies
Allergy/AdvReac Type Severity Reaction Status Date / Time
Cephalosporins Allergy Hives Verified 06/13/25 10:21
Penicillins Allergy Hives Verified 06/13/25 10:21
Home Medications
escitalopram oxalate 10 mg tablet (Lexapro) 10 mg PO DAILY Depression 05/12/25
memantine 5 mg tablet 5 mg PO BID Neurological Condition 05/12/25
simvastatin 40 mg tablet (Zocor) 40 mg PO HS High Cholesterol 05/12/25
apixaban 2.5 mg tablet (Eliquis) 2.5 mg PO BID #60 tabs 05/21/25
carvedilol 6.25 mg tablet 6.25 mg PO BID #60 tabs 05/21/25
clobetasol 0.05 % topical cream 1 applic topical BID #30 grams 06/18/25
Review of Systems
-
History Source: Patient
A 12 point ROS was completed and negative except as noted: Yes
Constitutional: Reports Fatigue; Denies Fever or Chills
EENT: Denies Sore Throat or Runny Nose
Respiratory: Reports Trouble Breathing
Cardiac: Denies Chest Pain
Abdomen/GI: Denies Abdominal Pain
: Denies Dysuria
Musculoskeletal: Denies Joint Swelling
Skin: Reports Rash
Neurological: Denies Numbness
Endocrine: Denies Temp Intolerance
Hematologic/Lymphatic: Denies Bruising
Psych: Denies Panic Disorder
Physical Exam
Vital Signs
Vital Signs
Temp Pulse Resp BP Pulse Ox
97.6 F 123 26 102/73 93
06/21/25 13:29 06/21/25 13:01 06/21/25 13:01 06/21/25 13:01 06/21/25 13:01
Physical Exam
General: Comfortable, Conversant, Appears Chronically Ill and Cachectic
HEENT: Atraumatic
Respiratory: Decreased Breath Sounds (Right side with dullness on percussion); No Wheezes
Cardiac: S1/S2 and Irregular Rhythm
GI: Soft, Non Tender and Non Distended
Genito-urinary: No Lim
Musculoskeletal: No Cyanosis and No Edema
Skin: No Jaundice
Neuro: Awake and Oriented; No Slurred Speech or Facial Droop
Psych: Calm
Laboratory Results
-
06/21/25 11:53
06/21/25 11:53
Laboratory Results
Total Bilirubin 0.5 mg/dl (0.2-1.3) 06/21/25 11:53
AST 18 U/L (14-36) 06/21/25 11:53
ALT 12 U/L (0-35) 06/21/25 11:53
Alkaline Phosphatase 108 U/L (38-126) 06/21/25 11:53
Impression/Plan
-
79 years old female presented with SOB, weakness:
# Acute hypoxic respiratory failure with distress / using accessory muscles and needing O2
Recurrent malignant pleural effusion, right side.
- Chest x-ray with Interval progression/ recurrence of moderate right pleural effusion. Several masses again appreciated within the left hemithorax consistent with neoplastic process.
- Status post thoracentesis recently, D/W IR, plan to do Asept Catheter as pt and her family already agreed to it. Pulmonary doctor will follow in OP setting.
- Wean oxygen as tolerated. Incentive spirometer encouraged but she does not use it.
- Hold off on antibiotics. Patient had low grade temperature in past but not recently. Negative flu/ COVID, absence of fever can be part of lymphoma disease.
# Bilateral upper extremity dermatitis consistent with lymphocytic infiltration
Continue with local steroid therapy as needed. As needed Benadryl.
# Persistent atrial fibrillation with relatively reactive and rapid ventricular response
Sometimes Uncontrolled with borderline low SBP
On Coreg , home dose
Avoiding CCB due to low EF, Cardiology was recently consulted, ok with higher heart rate as reactive to ongoing medical problems/ intolerance due to hypotension.
# B-cell MALT lymphoma
Confirmed by biospy
Primary oncologist Dr. Gerber. Seen in previous admission. Discussion regarding treatment plan. Family agreed to try Immunotherapy, Rituxan is scheduled to start later this week ( ). Goal to do home discharge so she can start the
treatments if possible.
#Chronic HFrEF
Euvolemic on exam. Major issues is effusion and pulmonary mets.
Echo 05/26: Left ventricular ejection fraction is severely reduced with an ejection fraction of 29 % with mild to moderate MR, moderate TR and mildly increased pulmonary pressures estimated 39 mmHg
Appears euvolemic
Goal-directed medical therapy limited by hypotension
# Hypercholesterolemia
No changes intended.
# Anxiety/depression
Continue Lexapro
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
No agitation
Continue memantine
# Deep dermal stage 2 sacral pressure injury, POA.
f/w wound care nurse recommendations
#DVT prophylaxis
-Eliquis
Code status: DNR DNI, confirmed.
Total time spent to see the patient, examine the patient, review data and lab results, discuss discharge plan with patient, daughter, ER doctor, consultants, nursing staff around 75 minutes
[2025-06-21] MEDS: LEVAQUIN 150 IV (13:59)
[2025-06-21] MEDS: CARDIZEM 125 IV (14:08)
--- NOTE | 2025-06-21 14:49 | CM ---
CM reviewed chart and met with pt bedside in ED. Lives with her daughter, moving to [address] next week.
Pt had been living independently in [place] but now relocated to daughter's home.
Needs assistance with ADLs and personal care, ambulates independently but daughter is planing on getting a RW. Has wheelchair which they use for transfers in the home and outside the home.
Current with [facility], Pt recommended SNF last admission(06/13-06/18) but they declined.
PCP: Leilani Mckoy
Pharmacy: [facility]
CM will continue to follow for all discharge planning needs.
[2025-06-21] MEDS: NAMENDA 5 MG PO (19:34)
[2025-06-21] MEDS: COREG 6.25 MG PO (19:35)
--- NOTE | 2025-06-22 06:56 | CON.PUL ---
Consultation
Consultation Request
Date/Time Consultation Requested: 06/21/2025
Date/Time Consultation Performed: 06/22/2025
Medical History
-
Chief Complaint: Shortness of breath
History of Present Illness:
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 Patient has had multiple hospitalizations in the last couple of months. Patient initially presented
with idiopathic pleural effusion and also new diagnosis of multiple lung masses. Patient has had multiple thoracentesis performed with exudative fluid removed with negative cytology. She subsequently had an IR guided lung biopsy performed which
was suggestive of MALT lymphoma. She had another thoracentesis performed during her last hospitalization and was discharged with plan for outpatient indwelling pleural catheter placement. Patient did well for a day postdischarge and then again
started to develop worsening shortness of breath with increased dyspnea with minimal exertion. She presented back to the emergency room and imaging is suggestive of enlarging right sided pleural effusion. Patient is being admitted to hospitalist
service and pulmonary consultation was requested for further input.
Past Medical History
Past Medical History: Reports Other (MALT lymphoma, persistent atrial fibrillation on Eliquis, pulmonary metastases, hyperlipidemia, chronic hypotension, pressure skin injury, Alzheimer disease, anxiety/depression, former smoker,)
Past Surgical History: Reports Other (No recent major surgery)
Social History
Tobacco: Former Smoker
Alcohol: None
Drug: None
Living: With Family
Family History
Family History: Not pertinent
Allergies / Home Medications
Allergies / Home Medications
Allergies
Allergy/AdvReac Type Severity Reaction Status Date / Time
Cephalosporins Allergy Hives Verified 06/13/25 10:21
Penicillins Allergy Hives Verified 06/13/25 10:21
Home Medications
�Medication �Instructions �Recorded �Confirmed �Last Taken �Type
escitalopram oxalate 10 mg tablet 10 mg PO DAILY Depression 05/12/25 06/21/25 06/20/25 History
(Lexapro)
memantine 5 mg tablet 5 mg PO BID Neurological Condition 05/12/25 06/21/25 06/20/25 History
simvastatin 40 mg tablet (Zocor) 40 mg PO HS High Cholesterol 05/12/25 06/21/25 06/20/25 History
apixaban 2.5 mg tablet (Eliquis) 2.5 mg PO BID #60 tabs 05/21/25 06/21/25 06/20/25 Rx
carvedilol 6.25 mg tablet 6.25 mg PO BID #60 tabs 05/21/25 06/21/25 06/20/25 Rx
clobetasol 0.05 % topical cream 1 applic topical BID #30 grams 06/18/25 06/21/25 06/20/25 Rx
diphenhydramine HCl 25 mg tablet 12.5 mg PO HS 06/21/25 06/21/25 06/20/25 History
Review of Systems
-
Hematologic/Lymphatic: Other (All 14 systems reviewed and negative except as stated above in the history of present illness.)
Vitals / Labs / Diagnostic Testing
Vital Signs
Temp Pulse Resp BP Pulse Ox
97.6 F 124 31 105/72 93
06/21/25 13:29 06/21/25 14:45 06/21/25 14:45 06/21/25 14:00 06/21/25 14:45
Lab Data
06/21/25 11:53
06/21/25 11:53
Microbiology
06/21/25 11:53 Nasal Swab Influenza Types A & B (RADHA) - Final
Test repeatedly invalid.
Nucleic Acid Amplification test (NAAT)performed on the
Walk-in platform.
Diagnostic Testing:
Physical Exam
-
HEENT: Normocephalic
Cardiovascular: S1/S2
Respiratory: Other (Decreased entry in the right hemithorax. No wheezing on exam)
GI: Soft and Non Distended
Neurology: Awake and Alert
Skin: Warm
General: Comfortable
Assessment
-
#1. 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
- Pleural fluid cytology 05/14/25 negative, repeat cytology on 05/19/25 suggestive of atypical rare cells
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
- Patient is status post multiple thoracentesis with rapid recommendation.
- IR consult for indwelling pleural catheter placement. Hold off additional thoracentesis for now
- Hold Eliquis in preparation for indwelling pleural catheter placement
#2. Shortness of breath
- No wheezing on exam noted, no prior history of obstructive or restrictive lung disease
- Patient dyspnea is primarily related to enlarging pleural effusion and multiple pulmonary masses due to MALT lymphoma in the setting of underlying HFrEF
- Patient is afebrile, has minimally elevated WBC count. Denies any significant cough or expectoration. Clinically less likely pneumonia, continue to monitor off antibiotics for now
- Supplemental oxygen as needed.
#3. Multiple lung masses, MALT Lymphoma
- Newly diagnosed after IR guided biopsy in 05/2025
- Oncology service on case, patient was scheduled to initiate chemotherapy in the coming week
#4. Chronic compensated hypercapnic respiratory failure.
- Suspect patient has underlying pulmonary restriction due to pleural effusion and pulmonary masses leading to chronic compensated hypercapnia
- Patient is awake alert, no current indication for BiPAP therapy
#5. Chronic HFrEF, LVEF 29%
- Newly diagnosed in 05/2025
- Cardiology service evaluated the patient and continuing conservative management for now considering concomitant malignancy
- Currently appears to be compensated. No pedal edema noted on exam.
- CODE STATUS DNR
Conditions present [employer]
Chronic A-fib on Eliquis. Hold anticoagulation in preparation for ASEPT placement.
HLD
ACC/AHA stage C chronic systolic heart failure
Anxiety/depression
Sacral wound
Alzheimer's disease
Former smoker, half a pack a day for 15 years, quit over 30 years ago
Updated patient's daughter at bedside
Patient will resume follow-up with [facility] pulmonary clinic postdischarge
Total time spent on this consultation/encounter _62___ minutes which includes review of history, physical exam, medications, laboratory data, personal review of imaging, extensive review of outpatient records, discussion with care team and
respiratory therapy.
Data:
Lung mass biopsy 05/2025: B-cell neoplasm, MALT lymphoma
CXR 06/2025: Pulmonary masses or some pulmonary metastasis. Stable.
Moderate right pleural effusion. Progressed.
Moderate opacification of the right lower lung field concerning for pneumonia. A layering pleural effusion cannot excluded. Clinical and laboratory correlation recommended. New.
CT Scan: CHEST 05/12/25- No CTA evidence for an acute pulmonary thromboembolism. Solid pulmonary masses throughout both lungs highly suspicious for malignancy/metastatic disease. The largest mass measures 5.8 cm in the left upper lobe. Moderate right
pleural effusion, presumably malignant.
Echo: 05/13/25- 1. Left ventricular ejection fraction is severely reduced with an ejection fraction of 29 % by Owusu's biplane method of discs.
2. Indexed left atrial volume is severely abnormal (>48 ml/m2).
3. Left ventricular wall motion is diffusely hypokinetic.
4. Mild left ventricular hypertrophy.
5. Mildly dilated right atrium.
6. Moderate mitral annular calcification. mild to moderate mitral valve regurgitation.
7. Moderate tricuspid regurgitation.
8. Pleural effusion is noted.
9. Tricuspid valve opens normally. moderate tricuspid regurgitation. Estimated pulmonary artery pressure of 39 mmHg assuming a right atrial pressure of 3 mmHg.
[2025-06-22 07:00] VITALS: BP 108/63
[2025-06-22] MEDS: COREG 6.25 MG PO ×2 (08:21→20:06)
[2025-06-22] MEDS: NAMENDA 5 MG PO ×2 (08:21→20:06)
[2025-06-22] MEDS: LEXAPRO 10 MG PO (08:21)
[2025-06-22] MEDS: HEPARIN 5000 UNITS SC ×2 (08:22→17:17)
[2025-06-22] MEDS: CLOBETASOL PROPIONATE 0.05% CREAM 1 APPLIC TOPICAL (08:22)
[2025-06-22 08:55] VITALS: BP 93/52; PULSE 114; O2SAT 98
[2025-06-22 09:31] VITALS: BP 93/52; PULSE 114; O2SAT 98
--- NOTE | 2025-06-22 09:53 | W.PN.HOSP.TC ---
Today's Communication/Plan
-
IR to place catheter with thoracentesis.
Assessment / Plan
Assessment / Plan
Physical Exam
General: Comfortable, Conversant, Appears Chronically Ill and Cachectic
HEENT: Atraumatic
Respiratory: Decreased Breath Sounds (Right side with dullness on percussion); No Wheezes
Cardiac: S1/S2 and Irregular Rhythm
GI: Soft, Non Tender and Non Distended
Genito-urinary: No Lim
Musculoskeletal: No Cyanosis and No Edema
Skin: No Jaundice
Neuro: Awake and Oriented to self and surroundings; No Slurred Speech or Facial Droop
Psych: Calm
A/P:
79 years old female presented with SOB, weakness:
# Acute hypoxic respiratory failure with distress / using accessory muscles and needing O2 requiring re-admission, she was discharged on 06/18 but presented back with SOB/ Pl effusion on 06/21.
Recurrent malignant pleural effusion, right side.
- Chest x-ray with Interval progression/ recurrence of moderate right pleural effusion. Several masses again appreciated within the left hemithorax consistent with neoplastic process.
- Status post thoracentesis recently, D/W IR, plan to do Asept Catheter as pt and her family already agreed to it. Pulmonary doctor will follow in OP setting.
- Wean oxygen as tolerated. Incentive spirometer encouraged but she does not use it.
- Hold off on antibiotics. Patient had low grade temperature in past which was c/w Lymphoma. Negative flu/ COVID, absence of fever.
# Bilateral upper extremity dermatitis consistent with lymphocytic infiltration
Continue with local steroid therapy as needed. As needed Benadryl.
# Persistent atrial fibrillation with relatively reactive and rapid ventricular response
Sometimes Uncontrolled with borderline low SBP
On Coreg , home dose
Avoiding CCB due to low EF, Cardiology was recently consulted: ok with higher heart rate as reactive to ongoing medical problems/ intolerance due to hypotension.
# B-cell MALT lymphoma
Confirmed by biopsy
Primary oncologist Dr. Gerber. Seen in previous admission. Discussion regarding treatment plan. Family agreed to try Immunotherapy, Rituxan is scheduled to start later this week ( ). Goal to do home discharge so she can start the
treatments if possible.
#Chronic HFrEF
Euvolemic on exam. Major issues is effusion and pulmonary mets.
Echo 05/26: Left ventricular ejection fraction is severely reduced with an ejection fraction of 29 % with mild to moderate MR, moderate TR and mildly increased pulmonary pressures estimated 39 mmHg
Appears euvolemic
Goal-directed medical therapy limited by hypotension
# Hypercholesterolemia
No changes intended.
# Anxiety/depression
Continue Lexapro
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
No agitation
Continue memantine
# Deep dermal stage 2 sacral pressure injury, POA.
f/w wound care nurse recommendations
#DVT prophylaxis
-Eliquis
Code status: DNR DNI, confirmed.
Total time spent to see the patient, examine the patient, review data and lab results, discuss discharge plan with patient, daughter, pulmonary,, nursing staff around 55 minutes
Anticipated Discharge: > 48 hours
Subjective/Interval History
-
Date of Service: June 22, 2025
No chest pain
No sob
Sitting in chair
Objective Data
-
Vital Signs:
Vital Signs
Temp Pulse Resp BP Pulse Ox
97.6 F 96 16 108/63 100
06/22/25 07:00 06/22/25 08:21 06/22/25 07:00 06/22/25 08:21 06/22/25 07:00
I&O
06/21/25 06/22/25 06/23/25
06:59 06:59 06:59
Intake Total 480 / 480
Balance 480 / 480
[2025-06-22 10:59] VITALS: BMI 21.1
[2025-06-22 15:00] VITALS: BP 93/49
[2025-06-22 23:21] VITALS: BP 92/50
[2025-06-23] VITALS (9 sets, daily range): BP systolic 88–114; BP diastolic 44–63; PULSE 104; O2SAT 97
[2025-06-23] MEDS: HEPARIN SC ×3 (00:59→17:22)
[2025-06-23] MEDS: COREG PO (07:27)
[2025-06-23] MEDS: LEXAPRO PO (07:27)
[2025-06-23] MEDS: NAMENDA PO (07:28)
[2025-06-23] MEDS: CLOBETASOL PROPIONATE 0.05% CREAM 1 APPLIC TOPICAL (07:49)
[2025-06-23 09:18] LABS: Hematocrit 34.6 % (37.0-47.0); Hemoglobin 10.7 g/dL (12.0-16.0); Mean Corp Hgb Conc. 30.9 g/dL (33.0-37.0); Mean Corpuscular Volume 96.1 fL (81.0-99.0); Platelet Count 205 10^3/uL (130-400); Red Cell Dist. Width 14.6 % (11.5-14.5)
--- NOTE | 2025-06-23 09:33 | VNURNOTE ---
Chart reviewed. Patient is current with [facility]. Will continue to follow hospital course and DC plans.
[2025-06-23 09:58] LABS: Blood Urea Nitrogen 15 mg/dl (7-17); Calcium 8.4 mg/dl (8.4-10.2); Carbon Dioxide 34 mmol/L (22-30); Chloride 101 mmol/L (98-107); Glucose 72 mg/dl (70-99); Potassium 3.3 mmol/L (3.5-5.1); Sodium 137 mmol/L (135-145); eGFR > 60.00
--- NOTE | 2025-06-23 11:09 | WOUNDNOTE ---
[facility] RN note: Patient admitted with pleural effusions. Patient lives at home. Daughter present.
See H&P for complete history.
PMH: recent lymphoma diagnosis, a fib, recent hospitalization at [facility] for pleural effusions.
Wound Location and type/assessment: Patient admitted with: healing stage 2 sacral pressure injury. Wound has improved when compared from pictures from 06/13. Wound is cared for by [facility] and daughter reports more wound care supplies have just been
ordered. Patient using gel cushion to recliner at home. Heels intact. Patient turns self and ambulates with walker. Heels intact and off-loaded with pillows under calves.
Appetite: fair to good as per patient.
Plan: Sacral foam dressing changed (sacral shaped silicone border foam used) and Calazime to open area as needed. MESFIN Gutierrez updated. Will confirm orders and update discharge and care plan.
Note to case management requested for discharge: Plan is to continue services with [facility].
--- NOTE | 2025-06-23 12:31 | CM ---
kosher dietary service manager reviewed patient's chart and per IR Asept cath has been ordered, assistant case manager reached out to [facility] [phone], and left several messages, assistant case manager then reached out to [employer] [facility] [phone] for Equipment
Company and discussed process for approval, per Codie patient's insurance is in network with equipment [employer], and patient will be approved for Asept Cath, she is requesting H&P and face sheet to be faxed to [phone], per Codie IR will send
order sheet when completed by physician, assistant case manager spoke with IR with update and they are aware of plan.
Plan; Asept Cath placement today, H&P along with face sheet faxed to [employer].
--- NOTE | 2025-06-23 13:03 | W.PN.PUL3 ---
Today's Communication / Plan
-
Hopefully can get intrapleural catheter placement, case management working with insurance to determine whether her supplies will be covered.
If catheter is placed with drain every 48 hours up to 500 mL if necessary.
Follow up with Dr. Bauer after DC.
Will follow
Assessment
-
#1. 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
- Pleural fluid cytology 05/14/25 negative, repeat cytology on 05/19/25 suggestive of atypical rare cells
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
- Patient is status post multiple thoracentesis with rapid recommendation.
- IR consult for indwelling pleural catheter placement-discussed with case management, trying to discuss with insurance whether supplies will be covered. Otherwise unable to place permanent intrapleural catheter and thoracentesis will be repeated
until insurance issues get cleared.
- Hold Eliquis in preparation for indwelling pleural catheter placement
#2. Shortness of breath-secondary to above.
- No wheezing on exam noted, no prior history of obstructive or restrictive lung disease
- Patient dyspnea is primarily related to enlarging pleural effusion and multiple pulmonary masses due to MALT lymphoma in the setting of underlying HFrEF
- Patient is afebrile, has minimally elevated WBC count. Denies any significant cough or expectoration. Clinically less likely pneumonia, continue to monitor off antibiotics for now
- Supplemental oxygen as needed.
#3. Multiple lung masses, MALT Lymphoma
- Newly diagnosed after IR guided biopsy in 05/2025
- Oncology service on case, patient was scheduled to initiate chemotherapy in the coming week
#4. Chronic compensated hypercapnic respiratory failure.
- Suspect patient has underlying pulmonary restriction due to pleural effusion and pulmonary masses leading to chronic compensated hypercapnia
- Patient is awake alert, no current indication for BiPAP therapy
#5. Chronic HFrEF, LVEF 29%
- Newly diagnosed in 05/2025
- Cardiology service evaluated the patient and continuing conservative management for now considering concomitant malignancy
- Currently appears to be compensated. No pedal edema noted on exam.
- CODE STATUS DNR
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
Chronic A-fib on Eliquis. Hold anticoagulation in preparation for ASEPT placement.
HLD
ACC/AHA stage C chronic systolic heart failure
Anxiety/depression
Sacral wound
Alzheimer's disease
Former smoker, half a pack a day for 15 years, quit over 30 years ago
Updated patient's daughter at bedside
Patient will resume follow-up with [facility] pulmonary clinic postdischarge
Total time spent on this consultation/encounter _62___ minutes which includes review of history, physical exam, medications, laboratory data, personal review of imaging, extensive review of outpatient records, discussion with care team and
respiratory therapy.
Data:
Lung mass biopsy 05/2025: B-cell neoplasm, MALT lymphoma
CXR 06/2025: Pulmonary masses or some pulmonary metastasis. Stable.
Moderate right pleural effusion. Progressed.
Moderate opacification of the right lower lung field concerning for pneumonia. A layering pleural effusion cannot excluded. Clinical and laboratory correlation recommended. New.
CT Scan: CHEST 05/12/25- No CTA evidence for an acute pulmonary thromboembolism. Solid pulmonary masses throughout both lungs highly suspicious for malignancy/metastatic disease. The largest mass measures 5.8 cm in the left upper lobe. Moderate right
pleural effusion, presumably malignant.
Echo: 05/13/25- 1. Left ventricular ejection fraction is severely reduced with an ejection fraction of 29 % by Owusu's biplane method of discs.
2. Indexed left atrial volume is severely abnormal (>48 ml/m2).
3. Left ventricular wall motion is diffusely hypokinetic.
4. Mild left ventricular hypertrophy.
5. Mildly dilated right atrium.
6. Moderate mitral annular calcification. mild to moderate mitral valve regurgitation.
7. Moderate tricuspid regurgitation.
8. Pleural effusion is noted.
9. Tricuspid valve opens normally. moderate tricuspid regurgitation. Estimated pulmonary artery pressure of 39 mmHg assuming a right atrial pressure of 3 mmHg.
Subjective Data
-
Date of Service:
Date of Service: June 23, 2025
Chief Complaint: Pulmonary Follow Up (Malignant right pleural effusion-recurrent)
Subjective:
Denies chest pain
Denies shortness of breath at rest
Review of Systems
Cardiopulmonary: Dyspnea on Exertion, Cough (n) and Sputum Production (n)
Objective Data
Data Reviewed
Vital Signs / I&O / Oxygen:
Vital Signs
Temp Pulse Resp BP Pulse Ox
98.4 F 110 20 99/55 98
06/23/25 08:23 06/23/25 12:57 06/23/25 08:23 06/23/25 12:57 06/23/25 12:57
Intake and Output
06/22/25 06/23/25 06/24/25
06:59 06:59 06:59
Intake Total 480 / 480 720 / 720
Balance 480 / 480 720 / 720
SaO2 98
Nasal Cannula flow liters per 2
minute
Physical Exam
General: Comfortable
HEENT: Normocephalic
Cardiovascular: S1-S2
Respiratory: Other (Decreased breath sounds on the right)
GI: Soft and Non Distended
Neurology: Awake
Labs/Micro/Reports
Lab Data
06/23/25 07:11
06/23/25 07:11
Microbiology
06/21/25 11:53 Nasal Swab Influenza Types A & B (RADHA) - Final
Test repeatedly invalid.
Nucleic Acid Amplification test (NAAT)performed on the
[employer] platform.
--- NOTE | 2025-06-23 13:11 | W.PN.HOSP.TC ---
Today's Communication/Plan
-
ASept catheter today
drainage [id number] - management by Pulmonary
DC after placement of catheter
Home o2 eval
Assessment / Plan
Assessment / Plan
Physical Exam
General: Comfortable, Conversant, Appears Chronically Ill and Cachectic
HEENT: Atraumatic
Respiratory: Decreased Breath Sounds (Right side with dullness on percussion); No Wheezes
Cardiac: S1/S2 and Irregular Rhythm
GI: Soft, Non Tender and Non Distended
Genito-urinary: No Lim
Musculoskeletal: No Cyanosis and No Edema
Skin: No Jaundice
Neuro: Awake and Oriented to self and surroundings; No Slurred Speech or Facial Droop
Psych: Calm
A/P:
79 years old female presented with SOB, weakness:
# Acute hypoxic respiratory failure with distress
- she was discharged on 06/18 but presented back with SOB/ Pl effusion on 06/21.
-Recurrent malignant pleural effusion, right side.
- Chest x-ray with Interval progression/ recurrence of moderate right pleural effusion. Several masses again appreciated within the left hemithorax consistent with neoplastic process.
- Status post thoracentesis recently, D/W IR, plan to do Asept Catheter as pt and her family already agreed to it. Pulmonary doctor will follow in OP setting.
- Wean oxygen as tolerated. Incentive spirometer encouraged but she does not use it.
- Hold off on antibiotics. Patient had low grade temperature in past which was c/w Lymphoma. Negative flu/ COVID, absence of fever.
-ASEPT catheter today; DC thereafter; drainage [id number]
# Bilateral upper extremity dermatitis consistent with lymphocytic infiltration
Continue with local steroid therapy as needed. As needed Benadryl.
# Persistent atrial fibrillation with relatively reactive and rapid ventricular response
Sometimes Uncontrolled with borderline low SBP
On Coreg , home dose
Avoiding CCB due to low EF, Cardiology was recently consulted: ok with higher heart rate as reactive to ongoing medical problems/ intolerance due to hypotension.
resume Eliquis once cleared by IR
# B-cell MALT lymphoma
Confirmed by biopsy
Primary oncologist Dr. Gerber. Seen in previous admission. Discussion regarding treatment plan. Family agreed to try Immunotherapy, Rituxan is scheduled to start later this week ( ). Goal to do home discharge so she can start the
treatments if possible.
#Chronic HFrEF
Euvolemic on exam. Major issues is effusion and pulmonary mets.
Echo 05/26: Left ventricular ejection fraction is severely reduced with an ejection fraction of 29 % with mild to moderate MR, moderate TR and mildly increased pulmonary pressures estimated 39 mmHg
Appears euvolemic
Goal-directed medical therapy limited by hypotension
# Hypercholesterolemia
No changes intended.
# Anxiety/depression
Continue Lexapro
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
No agitation
Continue memantine
# Deep dermal stage 2 sacral pressure injury, POA.
f/w wound care nurse recommendations
#DVT prophylaxis
-Eliquis
Code status: DNR DNI, confirmed.
More than 30 minutes spent in discharge including
Final examination of the patient
Summarizing hospital stay
Instructions for continuing care to all relevant caregivers
Preparation of discharge records, prescriptions, and referral forms
Total time spent (in minutes): 36
Anticipated Discharge: Today
Subjective/Interval History
-
Date of Service: June 23, 2025
no acute events
Objective Data
-
Labs:
Laboratory Results
06/23/25
07:11
WBC 10.1
Hgb 10.7 L D
Hct 34.6 L
Plt Count 205
Sodium 137
Potassium 3.3 L
Chloride 101
Carbon Dioxide 34 H
BUN 15
Creatinine 0.6
Glucose 72
Calcium 8.4
Vital Signs:
Vital Signs
Temp Pulse Resp BP Pulse Ox
98.4 F 110 20 99/55 98
06/23/25 08:23 06/23/25 12:57 06/23/25 08:23 06/23/25 12:57 06/23/25 12:57
I&O
06/22/25 06/23/25 06/24/25
06:59 06:59 06:59
Intake Total 480 / 480 720 / 720
Balance 480 / 480 720 / 720
Review of Systems
-
History Source: Patient
All other systems: Not reviewed unless documented
Physical Exam
-
General: Well Developed, Well Nourished, No Apparent Distress, Comfortable and Conversant
HEENT: Normocephalic and Atraumatic
Respiratory: Non Labored Respirations; Negative Clear to Auscultation, Wheezes, Rhonchi or Accessory Resp Muscle Use
Cardiac: Regular Rhythm and S1/S2; Negative Murmur, Rub or Gallop
GI: Soft, Nontender, Nondistended and Normal Bowel Sounds
Musculoskeletal: No Edema
Skin: Warm and Dry; Negative Rash, Ulcers or Lesions
Neuro: Awake and Alert
Psych: Calm and Intact Judgement/Insight (somewhat)
Data Reviewed
-
Total Time Spent with Patient (in minutes): 55
Diagnostic Radiology: Report Reviewed by me
Labs: Labs Reviewed by me
--- NOTE | 2025-06-23 13:17 | W.DS.TRANS ---
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
-
Discharge Instructions:
Discharge Diagnosis/Procedures
Acute hypoxic respiratory failure
recurrent malignant pleural effusion
Diet Low Cholesterol,Low Fat,Restrict fluids to 48 oz
Activity As tolerated
Blood Work cbc and cmp in 5-7 days
Others Tests Imaging as per oncology; CXR outpatient as per
pulmonary/oncology outpatient
Instructions:
Stand-Alone Forms:
Changes to Home Medications: No
Discharge Medications:
DC Medications w/original date entered in [facility]
escitalopram oxalate 10 mg tablet (Lexapro) 10 mg PO DAILY Depression 05/12/25
memantine 5 mg tablet 5 mg PO BID Neurological Condition 05/12/25
simvastatin 40 mg tablet (Zocor) 40 mg PO HS High Cholesterol 05/12/25
apixaban 2.5 mg tablet (Eliquis) 2.5 mg PO BID #60 tabs 05/21/25
carvedilol 6.25 mg tablet 6.25 mg PO BID #60 tabs 05/21/25
clobetasol 0.05 % topical cream 1 applic topical BID #30 grams 06/18/25
diphenhydramine HCl 25 mg tablet 12.5 mg PO HS Sleep 06/21/25
Home Medication Changes
NA
Pending Results: No
[2025-06-23] MEDS: VANCOCIN 200 IV (13:59)
--- NOTE | 2025-06-23 16:09 | PTCARENOTE ---
CEE RN- patients bp continues to run low. Brigido Texted Hospitalist Dr. Mcgregor. no new orders at this time. updated primary nurse Brenda.
[2025-06-23] MEDS: HEPARIN 5000 UNITS SC ×2 (17:25→23:50)
--- NOTE | 2025-06-23 17:25 | RESPNOTE ---
Home oxygen assessment held at this time until tomorrow per RN as patient with low blood pressure post IR procedure.
[2025-06-23] MEDS: NAMENDA 5 MG PO (20:33)
[2025-06-23] MEDS: COREG 6.25 MG PO (20:33)
--- NOTE | 2025-06-24 06:32 | PTCARENOTE ---
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
BP range.Pt asymptomatic at this time.Plan of care continued.
[2025-06-24] MEDS: CLOBETASOL PROPIONATE 0.05% CREAM 1 APPLIC TOPICAL (08:30)
[2025-06-24] MEDS: NAMENDA 5 MG PO (08:30)
[2025-06-24] MEDS: HEPARIN 5000 UNITS SC (08:31)
[2025-06-24] MEDS: LEXAPRO 10 MG PO (08:31)
[2025-06-24] MEDS: COREG 6.25 MG PO (08:31)
[2025-06-24 09:21] LABS: Hematocrit 35.3 % (37.0-47.0); Hemoglobin 11.2 g/dL (12.0-16.0); Mean Corp Hgb Conc. 31.7 g/dL (33.0-37.0); Mean Corpuscular Volume 94.4 fL (81.0-99.0); Platelet Count 203 10^3/uL (130-400); Red Cell Dist. Width 14.8 % (11.5-14.5)
[2025-06-24 09:35] LABS: ALT (SGPT) < 10 U/L (0-35); AST (SGOT) 15 U/L (14-36); Albumin 2.5 g/dl (3.5-5.0); Alkaline Phosphatase 82 U/L (38-126); Blood Urea Nitrogen 12 mg/dl (7-17); Calcium 8.5 mg/dl (8.4-10.2); Carbon Dioxide 34 mmol/L (22-30); Chloride 101 mmol/L (98-107); Glucose 113 mg/dl (70-99); Potassium 4.0 mmol/L (3.5-5.1); Sodium 136 mmol/L (135-145); Total Protein 5.1 g/dl (6.3-8.2); eGFR > 60.00
--- NOTE | 2025-06-24 10:47 | VNURNOTE ---
Addendum entered by Raven Puente RN 06/24/25 11:59:
Progress note faxed to [facility] for new home 02.
Original Note:
Chart reviewed. Patient qualified for new home 02. Preliminary orders, face sheet, clinicals sent to Anny at [facility]. Faxed to [phone]. Anny confirmed she delivered portable 02 tank to bedside. Once Prog Note completed, will send to
[facility].
Liaison spoke with daughter Naomie. Reviewed home 02. Reviewed plan for Asept drainage at home. Per daughter, she is agreeable to learn. She stated she and will be taught by IR prior to taking pt home. She will be coming into hospital in an
hour or two. She is aware [facility] will contact her to schedule resumption visit. Texted her contact # for [facility] DME per her request.
[facility] resumption referral accepted in [facility].
Outstanding Prog Note to be sent to [facility]
--- NOTE | 2025-06-24 10:57 | CM ---
Asept Cath placed yesterday, home oxygen testing completed, patient has received home oxygen tank today and will be set up with oxygen in home from [facility]. daughter to transport patient, portable oxygen in room. Plan is to home with [facility].
Plan; Home with [facility].
--- NOTE | 2025-06-24 11:31 | W.PN.UPDATE ---
Addendum entered and electronically signed by Danyel Mcgregor MD 06/24/25 11:39:
If catheter is placed with drain every 48 hours up to 500 mL if necessary.
Original Note:
Update Note
Progress Note Update
Patient is in need of oxygen at 2LPM via nasal canula continuously due to pulse ox of 87% on room air at rest. Oxygen will help to improve hypoxemia. Patient is mobile within the home. duoneb therapy has been tried and is ineffective in treating
hypoxemia related symptoms. Oxygen is needed to improve symptoms.
--- NOTE | 2025-06-24 12:10 | W.PN.HOSP.TC ---
Addendum entered and electronically signed by Danyel Mcgregor MD 06/24/25 14:59:
[id number]
Original Note:
Today's Communication/Plan
-
ASept catheter: drain every 48 hours up to 500 mL if necessary.
F/u pulm outpt
F/u Onc outpt
Assessment / Plan
Assessment / Plan
Physical Exam
General: Comfortable, Conversant, Appears Chronically Ill and Cachectic
HEENT: Atraumatic
Respiratory: Decreased Breath Sounds (Right side with dullness on percussion); No Wheezes
Cardiac: S1/S2 and Irregular Rhythm
GI: Soft, Non Tender and Non Distended
Genito-urinary: No Lim
Musculoskeletal: No Cyanosis and No Edema
Skin: No Jaundice
Neuro: Awake and Oriented to self and surroundings; No Slurred Speech or Facial Droop
Psych: Calm
A/P:
79 years old female presented with SOB, weakness:
# Acute hypoxic respiratory failure with distress
- she was discharged on 06/18 but presented back with SOB/ Pl effusion on 06/21.
-Recurrent malignant pleural effusion, right side.
- Chest x-ray with Interval progression/ recurrence of moderate right pleural effusion. Several masses again appreciated within the left hemithorax consistent with neoplastic process.
- Status post thoracentesis recently, D/W IR, Asept Catheter placed; drain every 48 hours up to 500 mL if necessary; F/u Pulm with Dr. Bauer OP setting.
- Wean oxygen as tolerated. Incentive spirometer encouraged but she does not use it.
- Hold off on antibiotics. Patient had low grade temperature in past which was c/w Lymphoma. Negative flu/ COVID, absence of fever.
# Bilateral upper extremity dermatitis consistent with lymphocytic infiltration
Continue with local steroid therapy as needed. As needed Benadryl.
# Persistent atrial fibrillation with relatively reactive and rapid ventricular response
Sometimes Uncontrolled with borderline low SBP
On Coreg , home dose
Avoiding CCB due to low EF, Cardiology was recently consulted: ok with higher heart rate as reactive to ongoing medical problems/ intolerance due to hypotension.
resume Eliquis
# B-cell MALT lymphoma
Confirmed by biopsy
Primary oncologist Dr. Gerber. Seen in previous admission. Discussion regarding treatment plan. Family agreed to try Immunotherapy, Rituxan is scheduled to start later this week ( ). Goal to do home discharge so she can start the
treatments if possible.
#Chronic HFrEF
Euvolemic on exam. Major issues is effusion and pulmonary mets.
Echo 05/26: Left ventricular ejection fraction is severely reduced with an ejection fraction of 29 % with mild to moderate MR, moderate TR and mildly increased pulmonary pressures estimated 39 mmHg
Appears euvolemic
Goal-directed medical therapy limited by hypotension
# Hypercholesterolemia
No changes intended.
# Anxiety/depression
Continue Lexapro
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
No agitation
Continue memantine
# Deep dermal stage 2 sacral pressure injury, POA.
f/w wound care nurse recommendations
#DVT prophylaxis
-Eliquis
Code status: DNR DNI, confirmed.
More than 30 minutes spent in discharge including
Final examination of the patient
Summarizing hospital stay
Instructions for continuing care to all relevant caregivers
Preparation of discharge records, prescriptions, and referral forms
Total time spent (in minutes): 35
Anticipated Discharge: Today
Subjective/Interval History
-
Date of Service: June 24, 2025
asept catheter placed 06/23
Objective Data
-
Labs:
Laboratory Results
06/24/25
09:02
WBC 19.8 H
Hgb 11.2 L
Hct 35.3 L
Plt Count 203
Sodium 136
Potassium 4.0
Chloride 101
Carbon Dioxide 34 H
BUN 12
Creatinine 0.7
Glucose 113 H
Calcium 8.5
Total Bilirubin 0.4
AST 15
ALT < 10
Alkaline Phosphatase 82
Vital Signs:
Vital Signs
Temp Pulse Resp BP Pulse Ox
99.0 F 97 22 117/66 100
06/23/25 22:50 06/24/25 08:31 06/23/25 22:50 06/24/25 08:31 06/24/25 08:45
I&O
06/23/25 06/24/25 06/25/25
06:59 06:59 06:59
Intake Total 720 / 720
Balance 720 / 720
Review of Systems
-
History Source: Patient
All other systems: Not reviewed unless documented
Physical Exam
-
General: Well Developed, Well Nourished, No Apparent Distress, Comfortable and Conversant
HEENT: Normocephalic and Atraumatic
Respiratory: Non Labored Respirations; Negative Clear to Auscultation, Wheezes, Rhonchi or Accessory Resp Muscle Use
Cardiac: Regular Rhythm and S1/S2; Negative Murmur, Rub or Gallop
GI: Soft, Nontender, Nondistended and Normal Bowel Sounds
Musculoskeletal: No Edema
Skin: Warm and Dry; Negative Rash, Ulcers or Lesions
Neuro: Awake and Alert
Psych: Calm and Intact Judgement/Insight (somewhat)
Data Reviewed
-
Total Time Spent with Patient (in minutes): 55
Diagnostic Radiology: Report Reviewed by me
Labs: Labs Reviewed by me
--- NOTE | 2025-06-24 12:20 | W.DS.TRANS ---
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
-
Discharge Instructions:
Discharge Diagnosis/Procedures
Acute hypoxic respiratory failure
recurrent malignant pleural effusion
Diet Low Cholesterol,Low Fat,Restrict fluids to 48 oz
Activity As tolerated
Blood Work cbc and cmp in 5-7 days
Others Tests Imaging as per oncology; CXR outpatient as per
pulmonary/oncology outpatient
Instructions:
Stand-Alone Forms:
Changes to Home Medications: No
Discharge Medications:
DC Medications w/original date entered in [facility]
escitalopram oxalate 10 mg tablet (Lexapro) 10 mg PO DAILY Depression 05/12/25
memantine 5 mg tablet 5 mg PO BID Neurological Condition 05/12/25
simvastatin 40 mg tablet (Zocor) 40 mg PO HS High Cholesterol 05/12/25
apixaban 2.5 mg tablet (Eliquis) 2.5 mg PO BID #60 tabs 05/21/25
carvedilol 6.25 mg tablet 6.25 mg PO BID #60 tabs 05/21/25
clobetasol 0.05 % topical cream 1 applic topical BID #30 grams 06/18/25
diphenhydramine HCl 25 mg tablet 12.5 mg PO HS Sleep 06/21/25
Home Medication Changes
na
Pending Results: No
[2025-06-24 13:40] VITALS: BP 105/56
--- NOTE | 2025-06-24 13:58 | W.PN.PUL3 ---
Today's Communication / Plan
-
IPC to be drained every 48 hours at home
Outpatient pulmonary follow-up in 4 weeks
Sign off
Assessment
-
#1. 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
- Pleural fluid cytology 05/14/25 negative, repeat cytology on 05/19/25 suggestive of atypical rare cells
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
- Patient is status post multiple thoracentesis with rapid recommendation.
- IR placed intrapleural catheter 06/23/2025. Will be drained every 48 hours.
Case management arrange for visiting nursing and equipment.
- Hold Eliquis in preparation for indwelling pleural catheter placement okay to restart anticoagulation per
#2. Shortness of breath-secondary to above.
- No wheezing on exam noted, no prior history of obstructive or restrictive lung disease
- Patient dyspnea is primarily related to enlarging pleural effusion and multiple pulmonary masses due to MALT lymphoma in the setting of underlying HFrEF
- Patient is afebrile, has minimally elevated WBC count. Denies any significant cough or expectoration. Clinically less likely pneumonia, continue to monitor off antibiotics for now
- Supplemental oxygen as needed.
#3. Multiple lung masses, MALT Lymphoma
- Newly diagnosed after IR guided biopsy in 05/2025
- Oncology service on case, patient was scheduled to initiate chemotherapy in the coming week
#4. Chronic compensated hypercapnic respiratory failure.
- Suspect patient has underlying pulmonary restriction due to pleural effusion and pulmonary masses leading to chronic compensated hypercapnia
- Patient is awake alert, no current indication for BiPAP therapy
#5. Chronic HFrEF, LVEF 29%
- Newly diagnosed in 05/2025
- Cardiology service evaluated the patient and continuing conservative management for now considering concomitant malignancy
- Currently appears to be compensated. No pedal edema noted on exam.
- CODE STATUS DNR
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
Chronic A-fib on Eliquis. Hold anticoagulation in preparation for ASEPT placement.
HLD
ACC/AHA stage C chronic systolic heart failure
Anxiety/depression
Sacral wound
Alzheimer's disease
Former smoker, half a pack a day for 15 years, quit over 30 years ago
Updated patient's daughter at bedside by Dr. Bolanos on 06/24/2025.
Patient will resume follow-up with [facility] pulmonary clinic postdischarge in the chart
Discharge planning today
Sign off
Data:
Lung mass biopsy 05/2025: B-cell neoplasm, MALT lymphoma
CXR 06/2025: Pulmonary masses or some pulmonary metastasis. Stable.
Moderate right pleural effusion. Progressed.
Moderate opacification of the right lower lung field concerning for pneumonia. A layering pleural effusion cannot excluded. Clinical and laboratory correlation recommended. New.
CT Scan: CHEST 05/12/25- No CTA evidence for an acute pulmonary thromboembolism. Solid pulmonary masses throughout both lungs highly suspicious for malignancy/metastatic disease. The largest mass measures 5.8 cm in the left upper lobe. Moderate right
pleural effusion, presumably malignant.
Echo: 05/13/25- 1. Left ventricular ejection fraction is severely reduced with an ejection fraction of 29 % by Owusu's biplane method of discs.
2. Indexed left atrial volume is severely abnormal (>48 ml/m2).
3. Left ventricular wall motion is diffusely hypokinetic.
4. Mild left ventricular hypertrophy.
5. Mildly dilated right atrium.
6. Moderate mitral annular calcification. mild to moderate mitral valve regurgitation.
7. Moderate tricuspid regurgitation.
8. Pleural effusion is noted.
9. Tricuspid valve opens normally. moderate tricuspid regurgitation. Estimated pulmonary artery pressure of 39 mmHg assuming a right atrial pressure of 3 mmHg.
Subjective Data
-
Date of Service:
Date of Service: June 24, 2025
Chief Complaint: Pulmonary Follow Up (Malignant right pleural effusion-recurrent)
Subjective:
No complaints
Intrapleural catheter was just drain for 700 cc and tolerated well
Objective Data
Data Reviewed
Vital Signs / I&O / Oxygen:
Vital Signs
Temp Pulse Resp BP Pulse Ox
98.8 F 101 18 105/56 94
06/24/25 13:40 06/24/25 13:40 06/24/25 13:40 06/24/25 13:40 06/24/25 13:40
Intake and Output
06/23/25 06/24/25 06/25/25
06:59 06:59 06:59
Intake Total 720 / 720
Balance 720 / 720
SaO2 94
Nasal Cannula flow liters per 2
minute
Physical Exam
General: Comfortable
HEENT: Normocephalic
Cardiovascular: S1-S2
Respiratory: Other (Decreased breath sounds on the right)
GI: Soft and Non Distended
Neurology: Awake
Labs/Micro/Reports
Lab Data
06/24/25 09:02
06/24/25 09:02
Microbiology
06/21/25 11:53 Nasal Swab Influenza Types A & B (RADHA) - Final
Test repeatedly invalid.
Nucleic Acid Amplification test (NAAT)performed on the
[employer] platform.
--- NOTE | 2025-06-24 14:02 | PN.IRAD.UPD ---
Update Note - IRAD
- -
Right Asept catheter drained bedside. Teaching done with patient's daughter, a discharge folder and 4 drainage kits were left to take home. Drained for 750 ml clear yellow fluid, patient was symptomatic so draining was stopped. Site cleaned and
dressed.
== END 2025-06-24 16:17 | disposition home health service (06) | DRG 840 ==
LOC: 4 EAST ACU 14:36
PROVIDERS: Physician Assistant; Radiology Diagnostic Radiology; ADMITTING PHYSICIAN Internal Medicine; ATTENDING PHYSICIAN Internal Medicine; CONSULT PHYSICIAN Internal Medicine; EMERGENCY PHYSICIAN Emergency Medicine; FAMILY PHYSICIAN Internal Medicine
PROC: 0W9930Z Drainage of Right Pleural Cavity with Drainage Device, Percutaneous Approach (ICD-10-PCS; 2025-06-23)
DX: C88.40 Extranodal marginal zone B-cell lymphoma of mucosa-associated lymphoid tissue [MALT-lymphoma] not having achieved remission (principal); J96.01 Acute respiratory failure with hypoxia; J96.02 Acute respiratory failure with hypercapnia; J91.0 Malignant pleural effusion; I48.19 Other persistent atrial fibrillation; I50.22 Chronic systolic (congestive) heart failure; I11.0 Hypertensive heart disease with heart failure; F32.A Depression, unspecified; I95.89 Other hypotension; Z66 Do not resuscitate; E78.00 Pure hypercholesterolemia, unspecified; F41.9 Anxiety disorder, unspecified; L89.152 Pressure ulcer of sacral region, stage 2; L30.9 Dermatitis, unspecified; Z11.52 Encounter for screening for COVID-19; Z79.01 Long term (current) use of anticoagulants; Z79.899 Other long term (current) drug therapy; Z87.891 Personal history of nicotine dependence
CPT/HCPCS: 32550; 71046; 80048; 80053; 83880; 85025; 85027; 87502; 87811; 93005; 96365; 96375; 97116; 97162; 97167; 99152; 99153; 99285

== ENCOUNTER → 2025-06-26 15:47 | Outpatient (REF) | payer MEDICARE, SELFPAY ==
[2025-06-26 13:14] LABS: Uric Acid 4.0 mg/dl (2.5-6.2)
== END ==
LOC: OIDL 15:47
PROVIDERS: ATTENDING PHYSICIAN Internal Medicine Hematology & Oncology
DX: R91.8 Other nonspecific abnormal finding of lung field (principal); J90 Pleural effusion, not elsewhere classified; F03.B11 Unspecified dementia, moderate, with agitation; C88.40 Extranodal marginal zone B-cell lymphoma of mucosa-associated lymphoid tissue [MALT-lymphoma] not having achieved remission
CPT/HCPCS: 84550

== ENCOUNTER → 2025-06-30 10:52 | Outpatient (REF) | payer MEDICARE, SELFPAY ==
[2025-06-30 12:06] LABS: Hematocrit 44.1 % (37.0-47.0); Hemoglobin 13.6 g/dL (12.0-16.0); Mean Corp Hgb Conc. 30.8 g/dL (33.0-37.0); Mean Corpuscular Volume 97.4 fL (81.0-99.0); Platelet Count 264 10^3/uL (130-400); Red Cell Dist. Width 15.0 % (11.5-14.5)
[2025-06-30 12:20] LABS: Nucleated Red Blood Cells % 0 %
[2025-06-30 12:33] LABS: ALT (SGPT) 33 U/L (0-35); AST (SGOT) 47 U/L (14-36); Albumin 3.0 g/dl (3.5-5.0); Alkaline Phosphatase 146 U/L (38-126); Blood Urea Nitrogen 13 mg/dl (7-17); Calcium 8.9 mg/dl (8.4-10.2); Carbon Dioxide 34 mmol/L (22-30); Chloride 99 mmol/L (98-107); Glucose 128 mg/dl (70-99); LDH 251 U/L (120-246); Potassium 4.2 mmol/L (3.5-5.1); Sodium 136 mmol/L (135-145); Total Protein 5.8 g/dl (6.3-8.2); Uric Acid 4.6 mg/dl (2.5-6.2); eGFR > 60.00
== END ==
LOC: REG 10:52
PROVIDERS: ATTENDING PHYSICIAN Nurse Practitioner Adult Health; FAMILY PHYSICIAN Internal Medicine
DX: C88.40 Extranodal marginal zone B-cell lymphoma of mucosa-associated lymphoid tissue [MALT-lymphoma] not having achieved remission (principal); R91.8 Other nonspecific abnormal finding of lung field; J90 Pleural effusion, not elsewhere classified; F03.B11 Unspecified dementia, moderate, with agitation
CPT/HCPCS: 36415; 80053; 83615; 84550; 85025

== ENCOUNTER → 2025-07-04 12:28 | Outpatient (REF) | payer MEDICARE, SELFPAY | LOC: RAD 12:28 | PROVIDERS: ATTENDING PHYSICIAN Nurse Practitioner Adult Health; FAMILY PHYSICIAN Internal Medicine | DX: R91.8 Other nonspecific abnormal finding of lung field (principal); J90 Pleural effusion, not elsewhere classified; F03.B11 Unspecified dementia, moderate, with agitation; C88.40 Extranodal marginal zone B-cell lymphoma of mucosa-associated lymphoid tissue [MALT-lymphoma] not having achieved remission | CPT/HCPCS: 71046 ==